=== PATIENT | male | born 1950 | race Native Hawaiian/Other Pacific Islander ===

== ENCOUNTER 2017-11-15 16:41 | Inpatient (IN) | payer MEDICARE, MEDICAID, SELFPAY ==
[2017-11-15] VITALS (9 sets, daily range): BP systolic 116–130; BP diastolic 66–85; PULSE 91–105; RESP 13–21; TEMP 36.9; O2SAT 93–98; BMI 19.5
--- NOTE | 2017-11-15 16:47 | ED.ABDPAIN ---
HPI - Abdominal Pain <Virginia Valdez DO - Last Filed: 11/19/17 04:06> General Chief Complaint: Abdominal Pain Stated Complaint: Abdominal Pain Time Seen by Provider: 11/15/17 16:41 Source: patient and EMS Mode of arrival: EMS Limitations: no limitations History of Present Illness HPI narrative: Patient is a 67-year-old male flown in from [facility] with abdominal pain. He has been having right upper quadrant and right lower quadrant pain for some time but got worse today. He says he really has not eaten anything in 6 weeks every time he eats he feels nauseated. He did take some Pepto-Bismol own is now having some black stool but really not much stool at all. He has not had any fever or chills. He does have a chronic cough but is a former smoker. Today EMS said that he was diaphoretic of a needed to come be evaluated immediately. He is no longer diaphoretic he is feeling better. MD complaint: abdominal pain Related Data Previous Rx's Medication Instructions Recorded docusate sodium [Colace] 100 mg PO BID #14 cap 11/17/17 oxycodone 5 mg PO Q3H PRN #30 tab 11/17/17 sennosides [Senokot] 8.6 mg PO BEDTIME #10 tab 11/17/17 Allergies Allergy/AdvReac Type Severity Reaction Status Date / Time all opiates Allergy Uncoded 11/15/17 19:08 Review of Systems <DO Arnoldo Mata Last Filed: 11/19/17 04:06> Review of Systems All systems reviewed & are unremarkable except as noted in HPI and below Constitutional Reports anorexia, Denies chills, Reports fatigue and Denies fever(s) Eyes Denies change in vision, Denies eye discharge, Denies irritation and Denies loss of vision ENT Ears, Nose, Mouth, and Throat: Denies change in voice, Denies neck pain and Denies sore throat Cardiovascular Denies chest pain, Denies irregular heart rhythm, Denies lightheadedness, Denies palpitations and Denies orthopnea Musculoskeletal Denies neck pain Neurologic Denies loss of vision Endocrine Reports fatigue and Denies palpitations Exam <DO Arnoldo Mata Last Filed: 11/19/17 04:06> Initial Vital Signs Initial Vital Signs: Vital Signs Temperature 98.5 F 11/15/17 16:56 Pulse Rate 104 H 11/15/17 16:56 Respiratory Rate 15 11/15/17 16:56 Blood Pressure 130/85 H 11/15/17 16:56 Const General: cooperative and well developed Nutritional Appearance: well nourished Orientation: alert, awake, oriented x3 and not confused HENNJ Head: normal to inspection and normocephalic Ears: hearing grossly normal bilaterally Eyes General: appearance normal, both eyes and all related structures Neck Neck: normal visual inspection and full ROM Chest Chest: normal inspection of the chest Resp Effort & Inspection: no respiratory distress Auscultation: wheezes scattered wheezes and lower bilaterally Cardio Rate: regular rate Rhythm: regular rhythm Heart Sounds: no click, no gallops, no murmurs and no rubs Pulses: normal peripheral pulses GI Palpation: soft, No guarding, No mass and tender (Mild diffuse tenderness) Rectal Exam: visual inspection normal, normal sphincter tone and heme negative stool Skin General: no rashes or lesions noted, No jaundice and No petechiae Neuro General: alert, oriented x3, gait normal and no focal motor deficits Speech: speech normal <Marc Pitts, DO - Last Filed: 11/16/17 02:47> Initial Vital Signs Initial Vital Signs: Vital Signs Temperature 98.5 F 11/15/17 16:56 Pulse Rate 104 H 11/15/17 16:56 Respiratory Rate 15 11/15/17 16:56 Blood Pressure 130/85 H 11/15/17 16:56 Course <Virginia Valdez, DO - Last Filed: 11/19/17 04:06> Orders Ordered: Discontinued Medications Acetaminophen (Tylenol) 650 mg PO Q6HR PRN PRN Reason: Pain, Mild (1-3) Albuterol (Ventolin) 2.5 mg INH NOW ONE Stop: 11/16/17 09:06 Last Admin: 11/16/17 11:11 Dose: Albuterol (Ventolin) 2.5 mg INH NOW PRN PRN Reason: Coughing, Wheezing, Dyspnea Last Admin: 11/16/17 12:10 Dose: 2.5 mg Albuterol (Ventolin) 2.5 mg INH [id number] PRN PRN Reason: Shortness Of Breath Albuterol/Ipratropium (Duoneb) 3 ml INH NOW PRN PRN Reason: Wheezing Last Admin: 11/15/17 17:06 Dose: 3 ml Albuterol/Ipratropium (Duoneb) 3 ml INH [id number] LIANG Last Admin: 11/17/17 08:24 Dose: 3 ml Admin: 11/16/17 20:36 Dose: 3 ml Admin: 11/16/17 15:32 Dose: 3 ml Albuterol/Ipratropium (Duoneb) 3 ml INH [id number] [facility] Benzocaine (Cepacol Lozenge) 1 each PO PRN PRN PRN Reason: Sore Throat Bupivacaine HCl (Sensorcaine 0.5% (Pf)) 30 ml INJ NOW ONE Stop: 11/16/17 10:36 Last Admin: 11/16/17 10:37 Dose: 10 ml Enoxaparin Sodium (Lovenox) 40 mg SUBCUT DAILY [facility] Last Admin: 11/17/17 08:16 Dose: 40 mg Admin: 11/16/17 13:47 Dose: 40 mg Fentanyl (Sublimaze) 50 mcg IV Q5MIN PRN PRN Reason: Pain, Moderate (4-6) Last Admin: 11/16/17 12:47 Dose: 50 mcg Admin: 11/16/17 12:38 Dose: 50 mcg Admin: 11/16/17 12:30 Dose: 50 mcg Admin: 11/16/17 12:25 Dose: 50 mcg Hydromorphone HCl (Dilaudid) 0.5 mg IV Q5MIN PRN PRN Reason: Pain, Severe (7-10) Hydromorphone HCl (Dilaudid) 0.5 mg IV Q2H PRN PRN Reason: Pain, Severe (7-10) Last Admin: 11/16/17 13:43 Dose: 0.5 mg Hydroxyzine HCl (Vistaril) 25 mg IM NOW PRN PRN Reason: Pain, Mild (1-3) Hydroxyzine Pamoate (Vistaril) 25 mg PO NOW PRN PRN Reason: Pain, Mild (1-3) Sodium Chloride (Normal Saline 0.9%) 1,000 mls @ 150 mls/hr IV CONT LIANG Last Infusion: 11/16/17 00:02 Dose: 0 mls/hr Admin: 11/15/17 17:45 Dose: 150 mls/hr HYDROMORPHONE [employer]ER (Dilaudid 6 Mg/30 Ml) 6 mg in 30 mls @ 0 mls/hr IV Q8HR LIANG Last Admin: 11/16/17 01:03 Dose: 0 mls/hr Sodium Chloride (Normal Saline 0.9%) 1,000 mls @ 125 mls/hr IV CONT LIANG Last Infusion: 11/16/17 10:05 Dose: 0 mls/hr Admin: 11/16/17 01:03 Dose: 125 mls/hr Cefazolin Sodium/Dextrose (Ancef) 2 gm in 100 mls @ 200 mls/hr IV NOW ONE Stop: 11/16/17 09:09 Last Admin: 11/16/17 09:45 Dose: 200 mls/hr Sodium Chloride (Normal Saline 0.9%) 1,000 mls @ 125 mls/hr IV CONT LIANG Last Admin: 11/16/17 11:11 Dose: Lactated Ringer's (Lactated Ringers) 1,000 mls @ 42 mls/hr IV CONT LIANG Last Admin: 11/16/17 11:33 Dose: 42 mls/hr Infusion: 11/16/17 11:33 Dose: 42 mls/hr Admin: 11/16/17 09:07 Dose: 42 mls/hr Famotidine (Pepcid) 20 mg in 50 mls @ 200 mls/hr IV PRN PRN PRN Reason: Anesthesia Stop: 11/16/17 12:00 Last Infusion: 11/16/17 09:45 Dose: 0 mls/hr Admin: 11/16/17 09:11 Dose: 200 mls/hr Lactated Ringer's (Lactated Ringers) 1,000 mls @ 70 mls/hr IV CONT LIANG Last Admin: 11/17/17 05:46 Dose: 70 mls/hr Infusion: 11/17/17 04:00 Dose: 70 mls/hr Admin: 11/16/17 13:42 Dose: 70 mls/hr Cefazolin Sodium/Dextrose (Ancef) 2 gm in 100 mls @ 200 mls/hr IV Q8H LIANG Stop: 11/17/17 03:14 Last Infusion: 11/17/17 03:30 Dose: 200 mls/hr Admin: 11/17/17 02:48 Dose: 200 mls/hr Infusion: 11/16/17 20:20 Dose: 0 mls/hr Admin: 11/16/17 19:23 Dose: 200 mls/hr Iopamidol (Isovue-300) 50 ml INJ NOW ONE Stop: 11/16/17 10:40 Last Admin: 11/16/17 10:39 Dose: 50 ml Lidocaine/Epinephrine (Xylocaine 1% W/Epi) 20 ml INJ NOW ONE Stop: 11/16/17 10:36 Last Admin: 11/16/17 10:36 Dose: 10 ml Lorazepam (Ativan) 0.5 mg IV NOW PRN PRN Reason: Anxiety Lorazepam (Ativan) 0 mg IV CIWAPRN PRN; Protocol PRN Reason: Alcohol Withdrawal Metoclopramide HCl (Reglan) 10 mg IV NOW PRN PRN Reason: Nausea And Vomiting Naloxone HCl (Narcan) 0.2 mg IV Q2MIN PRN; Protocol PRN Reason: Opiate Reversal Naloxone HCl (Narcan) 0.2 mg IV Q2MIN PRN PRN Reason: Opiate Reversal Ondansetron HCl (Zofran) 4 mg IV NOW ONE Stop: 11/15/17 16:51 Last Admin: 11/15/17 17:46 Dose: 4 mg Ondansetron HCl (Zofran) 4 mg IV Q4H PRN PRN Reason: Nausea And Vomiting Ondansetron HCl (Zofran) 4 mg IV NOW PRN PRN Reason: Nausea And Vomiting Oxycodone/Acetaminophen (Percocet 5/325) 1 tab PO Q3H PRN PRN Reason: Pain, Moderate (4-6) Last Admin: 11/17/17 14:21 Dose: 1 tab Admin: 11/17/17 10:51 Dose: 1 tab Admin: 11/17/17 04:40 Dose: 1 tab Admin: 11/16/17 19:23 Dose: 1 tab Admin: 11/16/17 13:46 Dose: 1 tab Pantoprazole Sodium (Protonix) 40 mg IV NOW ONE Stop: 11/15/17 16:51 Last Admin: 11/15/17 17:46 Dose: 40 mg Pantoprazole Sodium (Protonix) 40 mg IV DAILY LIANG Last Admin: 11/17/17 08:16 Dose: 40 mg Admin: 11/16/17 14:53 Dose: 40 mg Vital Signs - 8 hr 07/19/18 18:56 11/15/17 19:02 11/15/17 21:06 Temperature Pulse Rate 96 H 91 H Respiratory Rate 19 13 19 Blood Pressure Blood Pressure [Left Arm] 116/66 119/76 126/75 H Pulse Oximetry 96 94 94 11/15/17 22:00 11/15/17 22:37 11/15/17 23:30 Temperature Pulse Rate 96 H 92 H 94 H Respiratory Rate 15 15 14 Blood Pressure Blood Pressure [Left Arm] 129/78 H 126/70 H 122/75 H Pulse Oximetry 93 95 93 11/16/17 00:18 Temperature 97.7 F Pulse Rate 100 H Respiratory Rate 18 Blood Pressure 116/82 H Blood Pressure [Left Arm] Pulse Oximetry 95 <Marc Pitts DO - Last Filed: 11/16/17 02:47> Orders Ordered: Discontinued Medications Acetaminophen (Tylenol) 650 mg PO Q6HR PRN PRN Reason: Pain, Mild (1-3) Albuterol (Ventolin) 2.5 mg INH NOW ONE Stop: 11/16/17 09:06 Last Admin: 11/16/17 11:11 Dose: Albuterol (Ventolin) 2.5 mg INH NOW PRN PRN Reason: Coughing, Wheezing, Dyspnea Last Admin: 11/16/17 12:10 Dose: 2.5 mg Albuterol (Ventolin) 2.5 mg INH [id number] PRN PRN Reason: Shortness Of Breath Albuterol/Ipratropium (Duoneb) 3 ml INH NOW PRN PRN Reason: Wheezing Last Admin: 11/15/17 17:06 Dose: 3 ml Albuterol/Ipratropium (Duoneb) 3 ml INH [id number] LIANG Last Admin: 11/17/17 08:24 Dose: 3 ml Admin: 11/16/17 20:36 Dose: 3 ml Admin: 11/16/17 15:32 Dose: 3 ml Albuterol/Ipratropium (Duoneb) 3 ml INH [id number] LIANG Benzocaine (Cepacol Lozenge) 1 each PO PRN PRN PRN Reason: Sore Throat Bupivacaine HCl (Sensorcaine 0.5% (Pf)) 30 ml INJ NOW ONE Stop: 11/16/17 10:36 Last Admin: 11/16/17 10:37 Dose: 10 ml Enoxaparin Sodium (Lovenox) 40 mg SUBCUT DAILY [facility] Last Admin: 11/17/17 08:16 Dose: 40 mg Admin: 11/16/17 13:47 Dose: 40 mg Fentanyl (Sublimaze) 50 mcg IV Q5MIN PRN PRN Reason: Pain, Moderate (4-6) Last Admin: 11/16/17 12:47 Dose: 50 mcg Admin: 11/16/17 12:38 Dose: 50 mcg Admin: 11/16/17 12:30 Dose: 50 mcg Admin: 11/16/17 12:25 Dose: 50 mcg Hydromorphone HCl (Dilaudid) 0.5 mg IV Q5MIN PRN PRN Reason: Pain, Severe (7-10) Hydromorphone HCl (Dilaudid) 0.5 mg IV Q2H PRN PRN Reason: Pain, Severe (7-10) Last Admin: 11/16/17 13:43 Dose: 0.5 mg Hydroxyzine HCl (Vistaril) 25 mg IM NOW PRN PRN Reason: Pain, Mild (1-3) Hydroxyzine Pamoate (Vistaril) 25 mg PO NOW PRN PRN Reason: Pain, Mild (1-3) Sodium Chloride (Normal Saline 0.9%) 1,000 mls @ 150 mls/hr IV CONT [facility] Last Infusion: 11/16/17 00:02 Dose: 0 mls/hr Admin: 11/15/17 17:45 Dose: 150 mls/hr HYDROMORPHONE [employer]ER (Dilaudid 6 Mg/30 Ml) 6 mg in 30 mls @ 0 mls/hr IV Q8HR [facility] Last Admin: 11/16/17 01:03 Dose: 0 mls/hr Sodium Chloride (Normal Saline 0.9%) 1,000 mls @ 125 mls/hr IV CONT [facility] Last Infusion: 11/16/17 10:05 Dose: 0 mls/hr Admin: 11/16/17 01:03 Dose: 125 mls/hr Cefazolin Sodium/Dextrose (Ancef) 2 gm in 100 mls @ 200 mls/hr IV NOW ONE Stop: 11/16/17 09:09 Last Admin: 11/16/17 09:45 Dose: 200 mls/hr Sodium Chloride (Normal Saline 0.9%) 1,000 mls @ 125 mls/hr IV CONT LIANG Last Admin: 11/16/17 11:11 Dose: Lactated Ringer's (Lactated Ringers) 1,000 mls @ 42 mls/hr IV CONT LIANG Last Admin: 11/16/17 11:33 Dose: 42 mls/hr Infusion: 11/16/17 11:33 Dose: 42 mls/hr Admin: 11/16/17 09:07 Dose: 42 mls/hr Famotidine (Pepcid) 20 mg in 50 mls @ 200 mls/hr IV PRN PRN PRN Reason: Anesthesia Stop: 11/16/17 12:00 Last Infusion: 11/16/17 09:45 Dose: 0 mls/hr Admin: 11/16/17 09:11 Dose: 200 mls/hr Lactated Ringer's (Lactated Ringers) 1,000 mls @ 70 mls/hr IV CONT LIANG Last Admin: 11/17/17 05:46 Dose: 70 mls/hr Infusion: 11/17/17 04:00 Dose: 70 mls/hr Admin: 11/16/17 13:42 Dose: 70 mls/hr Cefazolin Sodium/Dextrose (Ancef) 2 gm in 100 mls @ 200 mls/hr IV Q8H LIANG Stop: 11/17/17 03:14 Last Infusion: 11/17/17 03:30 Dose: 200 mls/hr Admin: 11/17/17 02:48 Dose: 200 mls/hr Infusion: 11/16/17 20:20 Dose: 0 mls/hr Admin: 11/16/17 19:23 Dose: 200 mls/hr Iopamidol (Isovue-300) 50 ml INJ NOW ONE Stop: 11/16/17 10:40 Last Admin: 11/16/17 10:39 Dose: 50 ml Lidocaine/Epinephrine (Xylocaine 1% W/Epi) 20 ml INJ NOW ONE Stop: 11/16/17 10:36 Last Admin: 11/16/17 10:36 Dose: 10 ml Lorazepam (Ativan) 0.5 mg IV NOW PRN PRN Reason: Anxiety Lorazepam (Ativan) 0 mg IV CIWAPRN PRN; Protocol PRN Reason: Alcohol Withdrawal Metoclopramide HCl (Reglan) 10 mg IV NOW PRN PRN Reason: Nausea And Vomiting Naloxone HCl (Narcan) 0.2 mg IV Q2MIN PRN; Protocol PRN Reason: Opiate Reversal Naloxone HCl (Narcan) 0.2 mg IV Q2MIN PRN PRN Reason: Opiate Reversal Ondansetron HCl (Zofran) 4 mg IV NOW ONE Stop: 11/15/17 16:51 Last Admin: 11/15/17 17:46 Dose: 4 mg Ondansetron HCl (Zofran) 4 mg IV Q4H PRN PRN Reason: Nausea And Vomiting Ondansetron HCl (Zofran) 4 mg IV NOW PRN PRN Reason: Nausea And Vomiting Oxycodone/Acetaminophen (Percocet 5/325) 1 tab PO Q3H PRN PRN Reason: Pain, Moderate (4-6) Last Admin: 11/17/17 14:21 Dose: 1 tab Admin: 11/17/17 10:51 Dose: 1 tab Admin: 11/17/17 04:40 Dose: 1 tab Admin: 11/16/17 19:23 Dose: 1 tab Admin: 11/16/17 13:46 Dose: 1 tab Pantoprazole Sodium (Protonix) 40 mg IV NOW ONE Stop: 11/15/17 16:51 Last Admin: 11/15/17 17:46 Dose: 40 mg Pantoprazole Sodium (Protonix) 40 mg IV DAILY LIANG Last Admin: 11/17/17 08:16 Dose: 40 mg Admin: 11/16/17 14:53 Dose: 40 mg Consultations Consultation #1: Dr. Ortiz is happy to accept this patient. He requests normal saline at 125 cc/hour, no antibiotics, Dilaudid [employer]ER, Zofran, and p.o. status Vital Signs - 8 hr 11/15/17 18:56 11/15/17 19:02 11/15/17 21:06 Temperature Pulse Rate 96 H 91 H Respiratory Rate 19 13 19 Blood Pressure Blood Pressure [Left Arm] 116/66 119/76 126/75 H Pulse Oximetry 96 94 94 11/15/17 22:00 11/15/17 22:37 11/15/17 23:30 Temperature Pulse Rate 96 H 92 H 94 H Respiratory Rate 15 15 14 Blood Pressure Blood Pressure [Left Arm] 129/78 H 126/70 H 122/75 H Pulse Oximetry 93 95 93 11/16/17 00:18 Temperature 97.7 F Pulse Rate 100 H Respiratory Rate 18 Blood Pressure 116/82 H Blood Pressure [Left Arm] Pulse Oximetry 95 MDM - Abdominal Pain <Virginia Valdez DO - Last Filed: 11/19/17 04:06> Lab Data Result diagrams: 11/15/17 17:48 11/15/17 17:48 Lab Results 11/15/17 11/15/17 11/15/17 Range/Units 17:48 17:48 17:48 WBC 5.2 (4.5-11.0) X10^3/uL RBC 3.92 L (4.5-5.9) X10^6/uL Hgb 10.1 L (13.5-17.5) g/dL Hct 31.9 L (41-53) % MCV 81.4 (80-100) fL MCH 25.8 L (26-34) PG MCHC 31.7 (30-36) % RDW 22.7 H (11.6-14.8) % Plt Count 286 (150-400) X10^3/uL Neut % (Auto) 61.5 (50-75) % Lymph % (Auto) 28.6 (25-40) % Phelps % (Auto) 8.6 (3-14) % Eos % (Auto) 0.8 L (2-4) % Baso % (Auto) 0.5 (0-2) % Neut # (Auto) 3200 (9188-6114) /uL RBC Morphology Not Reportable Hypochromasia 1+ H Anisocytosis 3+ H Microcytosis 1+ H PT 11.7 (10.1-12.7) SECONDS INR 1.1 (0.9-1.3) APTT 30 (26.4-36.2) SECONDS Sodium 141 (137-145) mmol/L Potassium 3.6 (3.4-5.1) mmol/L Chloride 99 (98-107) mmol/L Carbon Dioxide 29 (22-32) mmol/L BUN 7 L (9-20) mg/dL Creatinine 0.60 L (0.66-1.25) mg/dL Estimated GFR > 60.0 (>60) mL/min BUN/Creatinine Ratio 11.7 (6-22) Glucose 85 (80-110) mg/dL Calcium 8.5 (8.4-10.2) mg/dL Total Bilirubin 1.6 H (0.2-1.3) mg/dL AST 196 H (17-59) IU/L ALT 46 (21-72) IU/L Alkaline Phosphatase 129 H (38-126) U/L Total Creatine Kinase 28 L (55-170) U/L Troponin I < 0.012 (0.01-0.034) ng/mL Total Protein 6.5 (6.3-8.2) g/dL Albumin 3.2 L (3.5-5.0) g/dL Globulin 3.3 (1.7-4.1) g/dL Albumin/Globulin Ratio 1.0 (1.0-2.8) Lipase 132 (23-300) U/L Hep Bs Antigen (NEGATIVE) s/c Hepatitis C Antibody (NEGATIVE) s/c HIV 1&2 Antibody (NEGATIVE) 11/16/17 11/16/17 Range/Units 15:53 15:53 WBC (4.5-11.0) X10^3/uL RBC (4.5-5.9) X10^6/uL Hgb (13.5-17.5) g/dL Hct (41-53) % MCV (80-100) fL MCH (26-34) PG MCHC (30-36) % RDW (11.6-14.8) % Plt Count (150-400) X10^3/uL Neut % (Auto) (50-75) % Lymph % (Auto) (25-40) % Phelps % (Auto) (3-14) % Eos % (Auto) (2-4) % Baso % (Auto) (0-2) % Neut # (Auto) (6177-3120) /uL RBC Morphology Hypochromasia Anisocytosis Microcytosis PT (10.1-12.7) SECONDS INR (0.9-1.3) APTT (26.4-36.2) SECONDS Sodium (137-145) mmol/L Potassium (3.4-5.1) mmol/L Chloride (98-107) mmol/L Carbon Dioxide (22-32) mmol/L BUN (9-20) mg/dL Creatinine (0.66-1.25) mg/dL Estimated GFR (>60) mL/min BUN/Creatinine Ratio (6-22) Glucose (80-110) mg/dL Calcium (8.4-10.2) mg/dL Total Bilirubin (0.2-1.3) mg/dL AST (17-59) IU/L ALT 51 (21-72) IU/L Alkaline Phosphatase (38-126) U/L Total Creatine Kinase (55-170) U/L Troponin I (0.01-0.034) ng/mL Total Protein (6.3-8.2) g/dL Albumin (3.5-5.0) g/dL Globulin (1.7-4.1) g/dL Albumin/Globulin Ratio (1.0-2.8) Lipase (23-300) U/L Hep Bs Antigen Negative (NEGATIVE) s/c Hepatitis C Antibody Reactive H (NEGATIVE) s/c HIV 1&2 Antibody Negative (NEGATIVE) Point of care testing: Urine Dip Bedside Urine Glucose Negative Bedside Urine Bilirubin - Negative Bedside Urine Ketone - Negative Urine Specific [place] 1.015 Bedside Urine Occult Blood - Negative Bedside Urine pH 7.0 Bedside Urine Protein - Negative Bedside Urine Urobilinogen - Negative Bedside Urine Nitrite - Negative Bedside Urine Leukocytes - Negative Esterase <Marc Pitts, DO - Last Filed: 11/16/17 02:47> Lab Data Lab Results 11/15/17 11/15/17 11/15/17 Range/Units 17:48 17:48 17:48 WBC 5.2 (4.5-11.0) X10^3/uL RBC 3.92 L (4.5-5.9) X10^6/uL Hgb 10.1 L (13.5-17.5) g/dL Hct 31.9 L (41-53) % MCV 81.4 (80-100) fL MCH 25.8 L (26-34) PG MCHC 31.7 (30-36) % RDW 22.7 H (11.6-14.8) % Plt Count 286 (150-400) X10^3/uL Neut % (Auto) 61.5 (50-75) % Lymph % (Auto) 28.6 (25-40) % Phelps % (Auto) 8.6 (3-14) % Eos % (Auto) 0.8 L (2-4) % Baso % (Auto) 0.5 (0-2) % Neut # (Auto) 3200 (9308-5267) /uL RBC Morphology Not Reportable Hypochromasia 1+ H Anisocytosis 3+ H Microcytosis 1+ H PT 11.7 (10.1-12.7) SECONDS INR 1.1 (0.9-1.3) APTT 30 (26.4-36.2) SECONDS Sodium 141 (137-145) mmol/L Potassium 3.6 (3.4-5.1) mmol/L Chloride 99 (98-107) mmol/L Carbon Dioxide 29 (22-32) mmol/L BUN 7 L (9-20) mg/dL Creatinine 0.60 L (0.66-1.25) mg/dL Estimated GFR > 60.0 (>60) mL/min BUN/Creatinine Ratio 11.7 (6-22) Glucose 85 (80-110) mg/dL Calcium 8.5 (8.4-10.2) mg/dL Total Bilirubin 1.6 H (0.2-1.3) mg/dL AST 196 H (17-59) IU/L ALT 46 (21-72) IU/L Alkaline Phosphatase 129 H (38-126) U/L Total Creatine Kinase 28 L (55-170) U/L Troponin I < 0.012 (0.01-0.034) ng/mL Total Protein 6.5 (6.3-8.2) g/dL Albumin 3.2 L (3.5-5.0) g/dL Globulin 3.3 (1.7-4.1) g/dL Albumin/Globulin Ratio 1.0 (1.0-2.8) Lipase 132 (23-300) U/L Hep Bs Antigen (NEGATIVE) s/c Hepatitis C Antibody (NEGATIVE) s/c HIV 1&2 Antibody (NEGATIVE) 11/16/17 11/16/17 Range/Units 15:53 15:53 WBC (4.5-11.0) X10^3/uL RBC (4.5-5.9) X10^6/uL Hgb (13.5-17.5) g/dL Hct (41-53) % MCV (80-100) fL MCH (26-34) PG MCHC (30-36) % RDW (11.6-14.8) % Plt Count (150-400) X10^3/uL Neut % (Auto) (50-75) % Lymph % (Auto) (25-40) % Phelps % (Auto) (3-14) % Eos % (Auto) (2-4) % Baso % (Auto) (0-2) % Neut # (Auto) (9136-2874) /uL RBC Morphology Hypochromasia Anisocytosis Microcytosis PT (10.1-12.7) SECONDS INR (0.9-1.3) APTT (26.4-36.2) SECONDS Sodium (137-145) mmol/L Potassium (3.4-5.1) mmol/L Chloride (98-107) mmol/L Carbon Dioxide (22-32) mmol/L BUN (9-20) mg/dL Creatinine (0.66-1.25) mg/dL Estimated GFR (>60) mL/min BUN/Creatinine Ratio (6-22) Glucose (80-110) mg/dL Calcium (8.4-10.2) mg/dL Total Bilirubin (0.2-1.3) mg/dL AST (17-59) IU/L ALT 51 (21-72) IU/L Alkaline Phosphatase (38-126) U/L Total Creatine Kinase (55-170) U/L Troponin I (0.01-0.034) ng/mL Total Protein (6.3-8.2) g/dL Albumin (3.5-5.0) g/dL Globulin (1.7-4.1) g/dL Albumin/Globulin Ratio (1.0-2.8) Lipase (23-300) U/L Hep Bs Antigen Negative (NEGATIVE) s/c Hepatitis C Antibody Reactive H (NEGATIVE) s/c HIV 1&2 Antibody Negative (NEGATIVE) Point of care testing: Urine Dip Bedside Urine Glucose Negative Bedside Urine Bilirubin - Negative Bedside Urine Ketone - Negative Urine Specific [place] 1.015 Bedside Urine Occult Blood - Negative Bedside Urine pH 7.0 Bedside Urine Protein - Negative Bedside Urine Urobilinogen - Negative Bedside Urine Nitrite - Negative Bedside Urine Leukocytes - Negative Esterase MDM Narrative Medical decision making narrative: upon receipt of CT scan and noted abnormalities with gallbladder an ultrasound was ordered. Ultrasound findings are noted above including thickened wall with some pericholecystic fluid. No gallstones noted. I placed a call to Dr. Ortiz who was happy to accept this patient and will likely receive a cholecystectomy Discharge Plan Departure Patient Disposition: Admitted As Inpatient Clinical Impression: Acute acalculous cholecystitis Discharge Date/Time: 11/16/17 00:04 Interventions: ED Discharge Assessment Last Done: 11/16/17 00:03 Admit Date/Time: 11/15/17 23:56 Admit Provider: Jacky Ortiz ED Cosign/Signout <Virginia Valdez DO - Last Filed: 11/19/17 04:06> Sign Out Provider Sign Out Attestation: patient signed out to Dr. Pitts at shift change. Awaiting CT result and final disposition
--- NOTE | 2017-11-15 16:50 | ED_ITS ---
HPI - Abdominal Pain <Virginia Valdez DO - Last Filed: 11/19/17 04:06> General Chief Complaint: Abdominal Pain Stated Complaint: Abdominal Pain Time Seen by Provider: 11/15/17 16:41 Source: patient and EMS Mode of arrival: EMS Limitations: no limitations History of Present Illness HPI narrative: Patient is a 67-year-old male flown in from [facility] with abdominal pain. He has been having right upper quadrant and right lower quadrant pain for some time but got worse today. He says he really has not eaten anything in 6 weeks every time he eats he feels nauseated. He did take some Pepto-Bismol own is now having some black stool but really not much stool at all. He has not had any fever or chills. He does have a chronic cough but is a former smoker. Today EMS said that he was diaphoretic of a needed to come be evaluated immediately. He is no longer diaphoretic he is feeling better. MD complaint: abdominal pain Related Data Previous Rx's Medication Instructions Recorded docusate sodium [Colace] 100 mg PO BID #14 cap 11/17/17 oxycodone 5 mg PO Q3H PRN #30 tab 11/17/17 sennosides [Senokot] 8.6 mg PO BEDTIME #10 tab 11/17/17 Allergies Allergy/AdvReac Type Severity Reaction Status Date / Time all opiates Allergy Uncoded 11/15/17 19:08 Review of Systems <DO Arnoldo Mata Last Filed: 11/19/17 04:06> Review of Systems All systems reviewed & are unremarkable except as noted in HPI and below Constitutional Reports anorexia, Denies chills, Reports fatigue and Denies fever(s) Eyes Denies change in vision, Denies eye discharge, Denies irritation and Denies loss of vision ENT Ears, Nose, Mouth, and Throat: Denies change in voice, Denies neck pain and Denies sore throat Cardiovascular Denies chest pain, Denies irregular heart rhythm, Denies lightheadedness, Denies palpitations and Denies orthopnea Musculoskeletal Denies neck pain Neurologic Denies loss of vision Endocrine Reports fatigue and Denies palpitations Exam <DO Arnoldo Mata Last Filed: 11/19/17 04:06> Initial Vital Signs Initial Vital Signs: Vital Signs Temperature 98.5 F 11/15/17 16:56 Pulse Rate 104 H 11/15/17 16:56 Respiratory Rate 15 11/15/17 16:56 Blood Pressure 130/85 H 11/15/17 16:56 Const General: cooperative and well developed Nutritional Appearance: well nourished Orientation: alert, awake, oriented x3 and not confused H[place]UT Head: normal to inspection and normocephalic Ears: hearing grossly normal bilaterally Eyes General: appearance normal, both eyes and all related structures Neck Neck: normal visual inspection and full ROM Chest Chest: normal inspection of the chest Resp Effort & Inspection: no respiratory distress Auscultation: wheezes scattered wheezes and lower bilaterally Cardio Rate: regular rate Rhythm: regular rhythm Heart Sounds: no click, no gallops, no murmurs and no rubs Pulses: normal peripheral pulses GI Palpation: soft, No guarding, No mass and tender (Mild diffuse tenderness) Rectal Exam: visual inspection normal, normal sphincter tone and heme negative stool Skin General: no rashes or lesions noted, No jaundice and No petechiae Neuro General: alert, oriented x3, gait normal and no focal motor deficits Speech: speech normal <Marc Pitts, DO - Last Filed: 11/16/17 02:47> Initial Vital Signs Initial Vital Signs: Vital Signs Temperature 98.5 F 11/15/17 16:56 Pulse Rate 104 H 11/15/17 16:56 Respiratory Rate 15 11/15/17 16:56 Blood Pressure 130/85 H 11/15/17 16:56 Course <Virginia Valdez, DO - Last Filed: 11/19/17 04:06> Orders Ordered: Discontinued Medications Acetaminophen (Tylenol) 650 mg PO Q6HR PRN PRN Reason: Pain, Mild (1-3) Albuterol (Ventolin) 2.5 mg INH NOW ONE Stop: 11/16/17 09:06 Last Admin: 11/16/17 11:11 Dose: Albuterol (Ventolin) 2.5 mg INH NOW PRN PRN Reason: Coughing, Wheezing, Dyspnea Last Admin: 11/16/17 12:10 Dose: 2.5 mg Albuterol (Ventolin) 2.5 mg INH [id number] PRN PRN Reason: Shortness Of Breath Albuterol/Ipratropium (Duoneb) 3 ml INH NOW PRN PRN Reason: Wheezing Last Admin: 11/15/17 17:06 Dose: 3 ml Albuterol/Ipratropium (Duoneb) 3 ml INH [id number] LIANG Last Admin: 11/17/17 08:24 Dose: 3 ml Admin: 11/16/17 20:36 Dose: 3 ml Admin: 11/16/17 15:32 Dose: 3 ml Albuterol/Ipratropium (Duoneb) 3 ml INH [id number] [facility] Benzocaine (Cepacol Lozenge) 1 each PO PRN PRN PRN Reason: Sore Throat Bupivacaine HCl (Sensorcaine 0.5% (Pf)) 30 ml INJ NOW ONE Stop: 11/16/17 10:36 Last Admin: 11/16/17 10:37 Dose: 10 ml Enoxaparin Sodium (Lovenox) 40 mg SUBCUT DAILY [facility] Last Admin: 11/17/17 08:16 Dose: 40 mg Admin: 11/16/17 13:47 Dose: 40 mg Fentanyl (Sublimaze) 50 mcg IV Q5MIN PRN PRN Reason: Pain, Moderate (4-6) Last Admin: 11/16/17 12:47 Dose: 50 mcg Admin: 11/16/17 12:38 Dose: 50 mcg Admin: 11/16/17 12:30 Dose: 50 mcg Admin: 11/16/17 12:25 Dose: 50 mcg Hydromorphone HCl (Dilaudid) 0.5 mg IV Q5MIN PRN PRN Reason: Pain, Severe (7-10) Hydromorphone HCl (Dilaudid) 0.5 mg IV Q2H PRN PRN Reason: Pain, Severe (7-10) Last Admin: 11/16/17 13:43 Dose: 0.5 mg Hydroxyzine HCl (Vistaril) 25 mg IM NOW PRN PRN Reason: Pain, Mild (1-3) Hydroxyzine Pamoate (Vistaril) 25 mg PO NOW PRN PRN Reason: Pain, Mild (1-3) Sodium Chloride (Normal Saline 0.9%) 1,000 mls @ 150 mls/hr IV CONT LIANG Last Infusion: 11/16/17 00:02 Dose: 0 mls/hr Admin: 11/15/17 17:45 Dose: 150 mls/hr HYDROMORPHONE [employer] (Dilaudid 6 Mg/30 Ml) 6 mg in 30 mls @ 0 mls/hr IV Q8HR LIANG Last Admin: 11/16/17 01:03 Dose: 0 mls/hr Sodium Chloride (Normal Saline 0.9%) 1,000 mls @ 125 mls/hr IV CONT LIANG Last Infusion: 11/16/17 10:05 Dose: 0 mls/hr Admin: 11/16/17 01:03 Dose: 125 mls/hr Cefazolin Sodium/Dextrose (Ancef) 2 gm in 100 mls @ 200 mls/hr IV NOW ONE Stop: 11/16/17 09:09 Last Admin: 11/16/17 09:45 Dose: 200 mls/hr Sodium Chloride (Normal Saline 0.9%) 1,000 mls @ 125 mls/hr IV CONT LIANG Last Admin: 11/16/17 11:11 Dose: Lactated Ringer's (Lactated Ringers) 1,000 mls @ 42 mls/hr IV CONT LIANG Last Admin: 11/16/17 11:33 Dose: 42 mls/hr Infusion: 11/16/17 11:33 Dose: 42 mls/hr Admin: 11/16/17 09:07 Dose: 42 mls/hr Famotidine (Pepcid) 20 mg in 50 mls @ 200 mls/hr IV PRN PRN PRN Reason: Anesthesia Stop: 11/16/17 12:00 Last Infusion: 11/16/17 09:45 Dose: 0 mls/hr Admin: 11/16/17 09:11 Dose: 200 mls/hr Lactated Ringer's (Lactated Ringers) 1,000 mls @ 70 mls/hr IV CONT LIANG Last Admin: 11/17/17 05:46 Dose: 70 mls/hr Infusion: 11/17/17 04:00 Dose: 70 mls/hr Admin: 11/16/17 13:42 Dose: 70 mls/hr Cefazolin Sodium/Dextrose (Ancef) 2 gm in 100 mls @ 200 mls/hr IV Q8H LIANG Stop: 11/17/17 03:14 Last Infusion: 11/17/17 03:30 Dose: 200 mls/hr Admin: 11/17/17 02:48 Dose: 200 mls/hr Infusion: 11/16/17 20:20 Dose: 0 mls/hr Admin: 11/16/17 19:23 Dose: 200 mls/hr Iopamidol (Isovue-300) 50 ml INJ NOW ONE Stop: 11/16/17 10:40 Last Admin: 11/16/17 10:39 Dose: 50 ml Lidocaine/Epinephrine (Xylocaine 1% W/Epi) 20 ml INJ NOW ONE Stop: 11/16/17 10:36 Last Admin: 11/16/17 10:36 Dose: 10 ml Lorazepam (Ativan) 0.5 mg IV NOW PRN PRN Reason: Anxiety Lorazepam (Ativan) 0 mg IV CIWAPRN PRN; Protocol PRN Reason: Alcohol Withdrawal Metoclopramide HCl (Reglan) 10 mg IV NOW PRN PRN Reason: Nausea And Vomiting Naloxone HCl (Narcan) 0.2 mg IV Q2MIN PRN; Protocol PRN Reason: Opiate Reversal Naloxone HCl (Narcan) 0.2 mg IV Q2MIN PRN PRN Reason: Opiate Reversal Ondansetron HCl (Zofran) 4 mg IV NOW ONE Stop: 11/15/17 16:51 Last Admin: 11/15/17 17:46 Dose: 4 mg Ondansetron HCl (Zofran) 4 mg IV Q4H PRN PRN Reason: Nausea And Vomiting Ondansetron HCl (Zofran) 4 mg IV NOW PRN PRN Reason: Nausea And Vomiting Oxycodone/Acetaminophen (Percocet 5/325) 1 tab PO Q3H PRN PRN Reason: Pain, Moderate (4-6) Last Admin: 11/17/17 14:21 Dose: 1 tab Admin: 11/17/17 10:51 Dose: 1 tab Admin: 11/17/17 04:40 Dose: 1 tab Admin: 11/16/17 19:23 Dose: 1 tab Admin: 11/16/17 13:46 Dose: 1 tab Pantoprazole Sodium (Protonix) 40 mg IV NOW ONE Stop: 11/15/17 16:51 Last Admin: 11/15/17 17:46 Dose: 40 mg Pantoprazole Sodium (Protonix) 40 mg IV DAILY LIANG Last Admin: 11/17/17 08:16 Dose: 40 mg Admin: 11/16/17 14:53 Dose: 40 mg Vital Signs - 8 hr 07/19/18 18:56 11/15/17 19:02 11/15/17 21:06 Temperature Pulse Rate 96 H 91 H Respiratory Rate 19 13 19 Blood Pressure Blood Pressure [Left Arm] 116/66 119/76 126/75 H Pulse Oximetry 96 94 94 11/15/17 22:00 11/15/17 22:37 11/15/17 23:30 Temperature Pulse Rate 96 H 92 H 94 H Respiratory Rate 15 15 14 Blood Pressure Blood Pressure [Left Arm] 129/78 H 126/70 H 122/75 H Pulse Oximetry 93 95 93 11/16/17 00:18 Temperature 97.7 F Pulse Rate 100 H Respiratory Rate 18 Blood Pressure 116/82 H Blood Pressure [Left Arm] Pulse Oximetry 95 <Marc Pitts DO - Last Filed: 11/16/17 02:47> Orders Ordered: Discontinued Medications Acetaminophen (Tylenol) 650 mg PO Q6HR PRN PRN Reason: Pain, Mild (1-3) Albuterol (Ventolin) 2.5 mg INH NOW ONE Stop: 11/16/17 09:06 Last Admin: 11/16/17 11:11 Dose: Albuterol (Ventolin) 2.5 mg INH NOW PRN PRN Reason: Coughing, Wheezing, Dyspnea Last Admin: 11/16/17 12:10 Dose: 2.5 mg Albuterol (Ventolin) 2.5 mg INH [id number] PRN PRN Reason: Shortness Of Breath Albuterol/Ipratropium (Duoneb) 3 ml INH NOW PRN PRN Reason: Wheezing Last Admin: 11/15/17 17:06 Dose: 3 ml Albuterol/Ipratropium (Duoneb) 3 ml INH [id number] LIANG Last Admin: 11/17/17 08:24 Dose: 3 ml Admin: 11/16/17 20:36 Dose: 3 ml Admin: 11/16/17 15:32 Dose: 3 ml Albuterol/Ipratropium (Duoneb) 3 ml INH [id number] LIANG Benzocaine (Cepacol Lozenge) 1 each PO PRN PRN PRN Reason: Sore Throat Bupivacaine HCl (Sensorcaine 0.5% (Pf)) 30 ml INJ NOW ONE Stop: 11/16/17 10:36 Last Admin: 11/16/17 10:37 Dose: 10 ml Enoxaparin Sodium (Lovenox) 40 mg SUBCUT DAILY [facility] Last Admin: 11/17/17 08:16 Dose: 40 mg Admin: 11/16/17 13:47 Dose: 40 mg Fentanyl (Sublimaze) 50 mcg IV Q5MIN PRN PRN Reason: Pain, Moderate (4-6) Last Admin: 11/16/17 12:47 Dose: 50 mcg Admin: 11/16/17 12:38 Dose: 50 mcg Admin: 11/16/17 12:30 Dose: 50 mcg Admin: 11/16/17 12:25 Dose: 50 mcg Hydromorphone HCl (Dilaudid) 0.5 mg IV Q5MIN PRN PRN Reason: Pain, Severe (7-10) Hydromorphone HCl (Dilaudid) 0.5 mg IV Q2H PRN PRN Reason: Pain, Severe (7-10) Last Admin: 11/16/17 13:43 Dose: 0.5 mg Hydroxyzine HCl (Vistaril) 25 mg IM NOW PRN PRN Reason: Pain, Mild (1-3) Hydroxyzine Pamoate (Vistaril) 25 mg PO NOW PRN PRN Reason: Pain, Mild (1-3) Sodium Chloride (Normal Saline 0.9%) 1,000 mls @ 150 mls/hr IV CONT [facility] Last Infusion: 11/16/17 00:02 Dose: 0 mls/hr Admin: 11/15/17 17:45 Dose: 150 mls/hr HYDROMORPHONE [employer] (Dilaudid 6 Mg/30 Ml) 6 mg in 30 mls @ 0 mls/hr IV Q8HR [facility] Last Admin: 11/16/17 01:03 Dose: 0 mls/hr Sodium Chloride (Normal Saline 0.9%) 1,000 mls @ 125 mls/hr IV CONT [facility] Last Infusion: 11/16/17 10:05 Dose: 0 mls/hr Admin: 11/16/17 01:03 Dose: 125 mls/hr Cefazolin Sodium/Dextrose (Ancef) 2 gm in 100 mls @ 200 mls/hr IV NOW ONE Stop: 11/16/17 09:09 Last Admin: 11/16/17 09:45 Dose: 200 mls/hr Sodium Chloride (Normal Saline 0.9%) 1,000 mls @ 125 mls/hr IV CONT LIANG Last Admin: 11/16/17 11:11 Dose: Lactated Ringer's (Lactated Ringers) 1,000 mls @ 42 mls/hr IV CONT LIANG Last Admin: 11/16/17 11:33 Dose: 42 mls/hr Infusion: 11/16/17 11:33 Dose: 42 mls/hr Admin: 11/16/17 09:07 Dose: 42 mls/hr Famotidine (Pepcid) 20 mg in 50 mls @ 200 mls/hr IV PRN PRN PRN Reason: Anesthesia Stop: 11/16/17 12:00 Last Infusion: 11/16/17 09:45 Dose: 0 mls/hr Admin: 11/16/17 09:11 Dose: 200 mls/hr Lactated Ringer's (Lactated Ringers) 1,000 mls @ 70 mls/hr IV CONT LIANG Last Admin: 11/17/17 05:46 Dose: 70 mls/hr Infusion: 11/17/17 04:00 Dose: 70 mls/hr Admin: 11/16/17 13:42 Dose: 70 mls/hr Cefazolin Sodium/Dextrose (Ancef) 2 gm in 100 mls @ 200 mls/hr IV Q8H LIANG Stop: 11/17/17 03:14 Last Infusion: 11/17/17 03:30 Dose: 200 mls/hr Admin: 11/17/17 02:48 Dose: 200 mls/hr Infusion: 11/16/17 20:20 Dose: 0 mls/hr Admin: 11/16/17 19:23 Dose: 200 mls/hr Iopamidol (Isovue-300) 50 ml INJ NOW ONE Stop: 11/16/17 10:40 Last Admin: 11/16/17 10:39 Dose: 50 ml Lidocaine/Epinephrine (Xylocaine 1% W/Epi) 20 ml INJ NOW ONE Stop: 11/16/17 10:36 Last Admin: 11/16/17 10:36 Dose: 10 ml Lorazepam (Ativan) 0.5 mg IV NOW PRN PRN Reason: Anxiety Lorazepam (Ativan) 0 mg IV CIWAPRN PRN; Protocol PRN Reason: Alcohol Withdrawal Metoclopramide HCl (Reglan) 10 mg IV NOW PRN PRN Reason: Nausea And Vomiting Naloxone HCl (Narcan) 0.2 mg IV Q2MIN PRN; Protocol PRN Reason: Opiate Reversal Naloxone HCl (Narcan) 0.2 mg IV Q2MIN PRN PRN Reason: Opiate Reversal Ondansetron HCl (Zofran) 4 mg IV NOW ONE Stop: 11/15/17 16:51 Last Admin: 11/15/17 17:46 Dose: 4 mg Ondansetron HCl (Zofran) 4 mg IV Q4H PRN PRN Reason: Nausea And Vomiting Ondansetron HCl (Zofran) 4 mg IV NOW PRN PRN Reason: Nausea And Vomiting Oxycodone/Acetaminophen (Percocet 5/325) 1 tab PO Q3H PRN PRN Reason: Pain, Moderate (4-6) Last Admin: 11/17/17 14:21 Dose: 1 tab Admin: 11/17/17 10:51 Dose: 1 tab Admin: 11/17/17 04:40 Dose: 1 tab Admin: 11/16/17 19:23 Dose: 1 tab Admin: 11/16/17 13:46 Dose: 1 tab Pantoprazole Sodium (Protonix) 40 mg IV NOW ONE Stop: 11/15/17 16:51 Last Admin: 11/15/17 17:46 Dose: 40 mg Pantoprazole Sodium (Protonix) 40 mg IV DAILY LIANG Last Admin: 11/17/17 08:16 Dose: 40 mg Admin: 11/16/17 14:53 Dose: 40 mg Consultations Consultation #1: Dr. Ortiz is happy to accept this patient. He requests normal saline at 125 cc/hour, no antibiotics, Dilaudid [employer], Zofran, and p.o. status Vital Signs - 8 hr 11/15/17 18:56 11/15/17 19:02 11/15/17 21:06 Temperature Pulse Rate 96 H 91 H Respiratory Rate 19 13 19 Blood Pressure Blood Pressure [Left Arm] 116/66 119/76 126/75 H Pulse Oximetry 96 94 94 11/15/17 22:00 11/15/17 22:37 11/15/17 23:30 Temperature Pulse Rate 96 H 92 H 94 H Respiratory Rate 15 15 14 Blood Pressure Blood Pressure [Left Arm] 129/78 H 126/70 H 122/75 H Pulse Oximetry 93 95 93 11/16/17 00:18 Temperature 97.7 F Pulse Rate 100 H Respiratory Rate 18 Blood Pressure 116/82 H Blood Pressure [Left Arm] Pulse Oximetry 95 MDM - Abdominal Pain <Virginia Valdez DO - Last Filed: 11/19/17 04:06> Lab Data Result diagrams: 11/15/17 17:48 11/15/17 17:48 Lab Results 11/15/17 11/15/17 11/15/17 Range/Units 17:48 17:48 17:48 WBC 5.2 (4.5-11.0) X10^3/uL RBC 3.92 L (4.5-5.9) X10^6/uL Hgb 10.1 L (13.5-17.5) g/dL Hct 31.9 L (41-53) % MCV 81.4 (80-100) fL MCH 25.8 L (26-34) PG MCHC 31.7 (30-36) % RDW 22.7 H (11.6-14.8) % Plt Count 286 (150-400) X10^3/uL Neut % (Auto) 61.5 (50-75) % Lymph % (Auto) 28.6 (25-40) % [place] % (Auto) 8.6 (3-14) % Eos % (Auto) 0.8 L (2-4) % Baso % (Auto) 0.5 (0-2) % Neut # (Auto) 3200 (0704-1199) /uL RBC Morphology Not Reportable Hypochromasia 1+ H Anisocytosis 3+ H Microcytosis 1+ H PT 11.7 (10.1-12.7) SECONDS INR 1.1 (0.9-1.3) APTT 30 (26.4-36.2) SECONDS Sodium 141 (137-145) mmol/L Potassium 3.6 (3.4-5.1) mmol/L Chloride 99 (98-107) mmol/L Carbon Dioxide 29 (22-32) mmol/L BUN 7 L (9-20) mg/dL Creatinine 0.60 L (0.66-1.25) mg/dL Estimated GFR > 60.0 (>60) mL/min BUN/Creatinine Ratio 11.7 (6-22) Glucose 85 (80-110) mg/dL Calcium 8.5 (8.4-10.2) mg/dL Total Bilirubin 1.6 H (0.2-1.3) mg/dL AST 196 H (17-59) IU/L ALT 46 (21-72) IU/L Alkaline Phosphatase 129 H (38-126) U/L Total Creatine Kinase 28 L (55-170) U/L Troponin I < 0.012 (0.01-0.034) ng/mL Total Protein 6.5 (6.3-8.2) g/dL Albumin 3.2 L (3.5-5.0) g/dL Globulin 3.3 (1.7-4.1) g/dL Albumin/Globulin Ratio 1.0 (1.0-2.8) Lipase 132 (23-300) U/L Hep Bs Antigen (NEGATIVE) s/c Hepatitis C Antibody (NEGATIVE) s/c HIV 1&2 Antibody (NEGATIVE) 11/16/17 11/16/17 Range/Units 15:53 15:53 WBC (4.5-11.0) X10^3/uL RBC (4.5-5.9) X10^6/uL Hgb (13.5-17.5) g/dL Hct (41-53) % MCV (80-100) fL MCH (26-34) PG MCHC (30-36) % RDW (11.6-14.8) % Plt Count (150-400) X10^3/uL Neut % (Auto) (50-75) % Lymph % (Auto) (25-40) % [place] % (Auto) (3-14) % Eos % (Auto) (2-4) % Baso % (Auto) (0-2) % Neut # (Auto) (5158-4900) /uL RBC Morphology Hypochromasia Anisocytosis Microcytosis PT (10.1-12.7) SECONDS INR (0.9-1.3) APTT (26.4-36.2) SECONDS Sodium (137-145) mmol/L Potassium (3.4-5.1) mmol/L Chloride (98-107) mmol/L Carbon Dioxide (22-32) mmol/L BUN (9-20) mg/dL Creatinine (0.66-1.25) mg/dL Estimated GFR (>60) mL/min BUN/Creatinine Ratio (6-22) Glucose (80-110) mg/dL Calcium (8.4-10.2) mg/dL Total Bilirubin (0.2-1.3) mg/dL AST (17-59) IU/L ALT 51 (21-72) IU/L Alkaline Phosphatase (38-126) U/L Total Creatine Kinase (55-170) U/L Troponin I (0.01-0.034) ng/mL Total Protein (6.3-8.2) g/dL Albumin (3.5-5.0) g/dL Globulin (1.7-4.1) g/dL Albumin/Globulin Ratio (1.0-2.8) Lipase (23-300) U/L Hep Bs Antigen Negative (NEGATIVE) s/c Hepatitis C Antibody Reactive H (NEGATIVE) s/c HIV 1&2 Antibody Negative (NEGATIVE) Point of care testing: Urine Dip Bedside Urine Glucose Negative Bedside Urine Bilirubin - Negative Bedside Urine Ketone - Negative Urine Specific [place] 1.015 Bedside Urine Occult Blood - Negative Bedside Urine pH 7.0 Bedside Urine Protein - Negative Bedside Urine Urobilinogen - Negative Bedside Urine Nitrite - Negative Bedside Urine Leukocytes - Negative Esterase <Marc Pitts, DO - Last Filed: 11/16/17 02:47> Lab Data Lab Results 11/15/17 11/15/17 11/15/17 Range/Units 17:48 17:48 17:48 WBC 5.2 (4.5-11.0) X10^3/uL RBC 3.92 L (4.5-5.9) X10^6/uL Hgb 10.1 L (13.5-17.5) g/dL Hct 31.9 L (41-53) % MCV 81.4 (80-100) fL MCH 25.8 L (26-34) PG MCHC 31.7 (30-36) % RDW 22.7 H (11.6-14.8) % Plt Count 286 (150-400) X10^3/uL Neut % (Auto) 61.5 (50-75) % Lymph % (Auto) 28.6 (25-40) % [place] % (Auto) 8.6 (3-14) % Eos % (Auto) 0.8 L (2-4) % Baso % (Auto) 0.5 (0-2) % Neut # (Auto) 3200 (0819-8135) /uL RBC Morphology Not Reportable Hypochromasia 1+ H Anisocytosis 3+ H Microcytosis 1+ H PT 11.7 (10.1-12.7) SECONDS INR 1.1 (0.9-1.3) APTT 30 (26.4-36.2) SECONDS Sodium 141 (137-145) mmol/L Potassium 3.6 (3.4-5.1) mmol/L Chloride 99 (98-107) mmol/L Carbon Dioxide 29 (22-32) mmol/L BUN 7 L (9-20) mg/dL Creatinine 0.60 L (0.66-1.25) mg/dL Estimated GFR > 60.0 (>60) mL/min BUN/Creatinine Ratio 11.7 (6-22) Glucose 85 (80-110) mg/dL Calcium 8.5 (8.4-10.2) mg/dL Total Bilirubin 1.6 H (0.2-1.3) mg/dL AST 196 H (17-59) IU/L ALT 46 (21-72) IU/L Alkaline Phosphatase 129 H (38-126) U/L Total Creatine Kinase 28 L (55-170) U/L Troponin I < 0.012 (0.01-0.034) ng/mL Total Protein 6.5 (6.3-8.2) g/dL Albumin 3.2 L (3.5-5.0) g/dL Globulin 3.3 (1.7-4.1) g/dL Albumin/Globulin Ratio 1.0 (1.0-2.8) Lipase 132 (23-300) U/L Hep Bs Antigen (NEGATIVE) s/c Hepatitis C Antibody (NEGATIVE) s/c HIV 1&2 Antibody (NEGATIVE) 11/16/17 11/16/17 Range/Units 15:53 15:53 WBC (4.5-11.0) X10^3/uL RBC (4.5-5.9) X10^6/uL Hgb (13.5-17.5) g/dL Hct (41-53) % MCV (80-100) fL MCH (26-34) PG MCHC (30-36) % RDW (11.6-14.8) % Plt Count (150-400) X10^3/uL Neut % (Auto) (50-75) % Lymph % (Auto) (25-40) % [place] % (Auto) (3-14) % Eos % (Auto) (2-4) % Baso % (Auto) (0-2) % Neut # (Auto) (4800-2771) /uL RBC Morphology Hypochromasia Anisocytosis Microcytosis PT (10.1-12.7) SECONDS INR (0.9-1.3) APTT (26.4-36.2) SECONDS Sodium (137-145) mmol/L Potassium (3.4-5.1) mmol/L Chloride (98-107) mmol/L Carbon Dioxide (22-32) mmol/L BUN (9-20) mg/dL Creatinine (0.66-1.25) mg/dL Estimated GFR (>60) mL/min BUN/Creatinine Ratio (6-22) Glucose (80-110) mg/dL Calcium (8.4-10.2) mg/dL Total Bilirubin (0.2-1.3) mg/dL AST (17-59) IU/L ALT 51 (21-72) IU/L Alkaline Phosphatase (38-126) U/L Total Creatine Kinase (55-170) U/L Troponin I (0.01-0.034) ng/mL Total Protein (6.3-8.2) g/dL Albumin (3.5-5.0) g/dL Globulin (1.7-4.1) g/dL Albumin/Globulin Ratio (1.0-2.8) Lipase (23-300) U/L Hep Bs Antigen Negative (NEGATIVE) s/c Hepatitis C Antibody Reactive H (NEGATIVE) s/c HIV 1&2 Antibody Negative (NEGATIVE) Point of care testing: Urine Dip Bedside Urine Glucose Negative Bedside Urine Bilirubin - Negative Bedside Urine Ketone - Negative Urine Specific [place] 1.015 Bedside Urine Occult Blood - Negative Bedside Urine pH 7.0 Bedside Urine Protein - Negative Bedside Urine Urobilinogen - Negative Bedside Urine Nitrite - Negative Bedside Urine Leukocytes - Negative Esterase MDM Narrative Medical decision making narrative: upon receipt of CT scan and noted abnormalities with gallbladder an ultrasound was ordered. Ultrasound findings are noted above including thickened wall with some pericholecystic fluid. No gallstones noted. I placed a call to Dr. Ortiz who was happy to accept this patient and will likely receive a cholecystectomy Discharge Plan Departure Patient Disposition: Admitted As Inpatient Clinical Impression: Acute acalculous cholecystitis Discharge Date/Time: 11/16/17 00:04 Interventions: ED Discharge Assessment Last Done: 11/16/17 00:03 Admit Date/Time: 11/15/17 23:56 Admit Provider: Jacky Ortiz ED Cosign/Signout <Virginia Valdez DO - Last Filed: 11/19/17 04:06> Sign Out Provider Sign Out Attestation: patient signed out to Dr. Pitts at shift change. Awaiting CT result and final disposition
--- NOTE | 2017-11-15 16:50 | DI.CT.S_ITS ---
PROCEDURE: CT ABDOMEN PELVIS W CON INDICATIONS: RIGHT UPPER QUADRANT AND RIGHT LOWER QUADRANT PAIN TECHNIQUE: After the administration of intravenous contrast, 5 mm thick sections acquired from the diaphragm to the symphysis. 5 mm coronal and sagittal reformats were acquired. For radiation dose reduction, the following was used: automated exposure control, adjustment of mA and/or kV according to patient size. COMPARISON: None. FINDINGS: Image quality: Excellent. ABDOMEN: Lung bases: Lung bases are clear. Heart size is normal. Small hiatal hernia. Solid organs: There is severe hepatic fatty infiltration. Liver is normal in size. Gallbladder wall is severely thickened. No opaque gallstones. Biliary system is non dilated. Pancreas enhances normally. Spleen is normal in size and enhancement. No adrenal nodules. Kidneys demonstrate normal size and enhancement, without hydronephrosis. There is a 2.5 cm cyst in the right kidney. Peritoneum and bowel: Stomach and duodenum are thickened. Terminal ileum is mildly thickened. There is also mild concentric thickening of the descending and sigmoid colon, as well as rectum. No free fluid or air. Nodes and vessels: No retroperitoneal or mesenteric adenopathy by size criteria. Aorta and inferior vena cava are normal in size. There is moderate to severe aortic and iliac artery atherosclerosis. Miscellaneous: No ventral hernias. PELVIS: Genitourinary: Bladder wall thickness is normal. Prostate is mildly enlarged. Miscellaneous: No inguinal hernias or adenopathy. Bones: No suspicious bony lesions. No vertebral body compression fractures. Severe degenerative disease at L5-S1. IMPRESSION: 1. There is thickening of stomach and duodenum, as well as to terminate ileum. The descending colon, sigmoid colon and rectum are also thickened. Differential diagnoses include infectious etiology versus inflammatory bowel disease. 2. There is severe thickening of the gallbladder. No gallstones. 3. Severe hepatic steatosis. 4. Simple right renal cyst. Dictated by: Gelacio Escobar M.D. on 11/15/2017 at 20:02 Transcribed by: ROGELIO on 11/15/2017 at 20:10 Approved by: Gelacio Escobar M.D. on 11/15/2017 at 20:38
--- NOTE | 2017-11-15 16:52 | DI.RAD.S_ITS ---
PROCEDURE: XR CHEST 1V INDICATIONS: sob TECHNIQUE: One view of the chest was acquired. COMPARISON: None. FINDINGS: Surgical changes and devices: None. Lungs and pleura: Hyperinflation suggesting COPD. No pleural effusions or pneumothorax. Lungs are clear. Mediastinum: Mediastinal contours appear normal. Heart size is normal. Bones and chest wall: No suspicious bony lesions. Overlying soft tissues appear unremarkable. IMPRESSION: 1. No acute cardiopulmonary disease. 2. COPD. Dictated by: Gelacio Escobar M.D. on 11/15/2017 at 17:46 Approved by: Gelacio Escobar M.D. on 11/15/2017 at 17:46
[2017-11-15] MEDS: ALBUTEROL/IPRATROPIUM 3 ML AMPUL INH (17:06)
[2017-11-15] MEDS: SODIUM CHLORIDE 0.9% 1,000 ML 150 ML IV (17:45)
[2017-11-15] MEDS: PANTOPRAZOLE 40 MG VIAL IV (17:46)
[2017-11-15] MEDS: ONDANSETRON 4 MG/2 ML INJ IV (17:46)
[2017-11-15 17:58] LABS: Add Manual Diff / Slide Review NO; Basophils Percent Auto 0.5 % (0-2); Eosinophils Percent Auto 0.8 % (2-4); Hematocrit 31.9 % (41-53); Hemoglobin 10.1 g/dL (13.5-17.5); Lymphocytes Percent Auto 28.6 % (25-40); Mean Corpuscular HGB Conc 31.7 % (30-36); Mean Corpuscular Hemoglobin 25.8 PG (26-34); Mean Corpuscular Volume 81.4 fL (80-100); Monocytes Percent Auto 8.6 % (3-14); Neutrophils Absolute Auto 3200 /uL (3000-5900); Neutrophils Percent Auto 61.5 % (50-75); Platelet Count 286 X10^3/uL (150-400); Red Blood Cell Count 3.92 X10^6/uL (4.5-5.9); Red Cell Distribution Width 22.7 % (11.6-14.8); White Blood Cell Count 5.2 X10^3/uL (4.5-11.0)
[2017-11-15 18:00] LABS: INR 1.1 (0.9-1.3); Prothrombin Time 11.7 SECONDS (10.1-12.7)
[2017-11-15 18:02] LABS: PTT Partial Thromboplastin Tim 30 SECONDS (26.4-36.2)
[2017-11-15 18:07] LABS: Alanine Aminotransferase 46 IU/L (21-72); Albumin 3.2 g/dL (3.5-5.0); Alkaline Phosphatase 129 U/L (38-126); Aspartate Aminotransferase 196 IU/L (17-59); BUN Creatinine Ratio 11.7 (6-22); Bilirubin Total 1.6 mg/dL (0.2-1.3); Blood Urea Nitrogen 7 mg/dL (9-20); Calcium 8.5 mg/dL (8.4-10.2); Carbon Dioxide 29 mmol/L (22-32); Chloride 99 mmol/L (98-107); Creatine Kinase 28 U/L (55-170); Estimated Glomerular Filt Rate > 60.0 mL/min (>60); Globulin 3.3 g/dL (1.7-4.1); Glucose 85 mg/dL (80-110); HEMOLYSIS < 15 (0-50); Lipase 132 U/L (23-300); Potassium 3.6 mmol/L (3.4-5.1); Sodium 141 mmol/L (137-145); Total Protein 6.5 g/dL (6.3-8.2)
[2017-11-15 18:26] LABS: Troponin I < 0.012 ng/mL (0.01-0.034)
[2017-11-15 18:28] LABS: Anisocytosis 3+; Hypochromasia 1+; Microcytosis 1+
--- NOTE | 2017-11-15 20:08 | DI.US.S_ITS ---
PROCEDURE: US ABDOMEN LIMITED INDICATIONS: abnormal appearance of GB on CT TECHNIQUE: Real-time focused scanning was performed of the abdomen, with image documentation. COMPARISON: [facility], CT, CT ABDOMEN PELVIS W CON, 11/15/2017, 18:19. FINDINGS: No gallstones. There is diffuse skeletal thickening measuring 7 mm. There is trace pericholecystic fluid. Common bile duct measures 8 mm. IMPRESSION: 1. No gallstones. There is, however, severe gallbladder wall thickening and trace amount of pericholecystic fluid. Recommend clinical correlation for acalculus cholecystitis. 2. Common bile duct is mildly distended measuring 8 mm. Dictated by: Gelacio Escobar M.D. on 11/15/2017 at 21:50 Approved by: Gelacio Escobar M.D. on 11/15/2017 at 21:53
[2017-11-16] VITALS (23 sets, daily range): BP systolic 102–135; BP diastolic 57–91; PULSE 76–102; RESP 13–20; TEMP 36.2–37.2; O2SAT 91–100; BMI 19.5
--- NOTE | 2017-11-16 | PATH_ITS ---
[facility] Accession Number: [id number] . 01 Material submitted: . GALLBLADDER . 02 Diagnosis: Gallbladder, Laparoscopic Cholecystectomy: Mild, chronic cholecystitis. MRV/11/19/2017 . 02 Electronically signed: . Erika Mcgrath MD, Pathologist NPI- [id number] . 01 Gross description: . Received in formalin, labeled gallbladder, is an intact gallbladder (length-6.0 cm, diameter-3.0 cm) with gutierrez-pink, smooth, shiny serosa and a patent cystic duct. No lymph nodes are identified. The lumen contains green-brown, gelatinous material mixed with dark brown, solid, paste-like material. The mucosa is brown and semi-velvety. The wall is up to 1.0 cm thick. No nodules, masses, or lesions are identified. Section code: (A1) cystic duct resection margin and two serial sections from the body; (A2) two longitudinal sections from the fundus. ([id number]) /FRR . 02 Pathologist provided ICD-10: K81.1 . 02 CPT . 341974 Performed at: 01 [facility] [address] [facility] [place] [facility]– [place], [place], [place] [id number] MD Carlos Green MD Phone: [phone] Performed at: 02 [facility] [address] [place], [place] [id number] MD Alex Byrd MD Phone: [phone]
[2017-11-16] MEDS: HYDROMORPHONE PCA 6 MG/30 ML PCA.VIAL IV (01:03)
[2017-11-16] MEDS: SODIUM CHLORIDE 0.9% 1,000 ML 125 ML IV (01:03)
--- NOTE | 2017-11-16 01:44 | PC.NURSE ---
Pt. admitted from ER for cholecystitis. Pt. is alert and oriented, denies pain, and nausea. Pt. admitted to drinking a gallon of vodka/week. Informed that he would be a risk for ETOH withdrawal. No history of alcohol seizures. Oriented pt. to room, use of call light and bed controls and informed him to call for assistance if needed to use the bathroom for safety.
--- NOTE | 2017-11-16 07:47 | PM.HP.1 ---
History of Present Illness Date Patient Seen: 11/16/17 Time Patient Seen: 07:47 Chief complaint: Abdominal Pain Narrative: 67-year-old male who presented the emergency department late last evening with 6 day history of progressive epigastric and right upper quadrant abdominal pain radiating down the right lateral abdomen. Denies any back or shoulder pain. No associated chest pain or shortness of breath. His appetite has been poor, and he has been eating only very small portions in frequently over the last 1-2 weeks. He had episodes of nausea and vomiting with eating over the last 3-4 days. Last bowel movement was several days ago. He is passing flatus. He reports his most recent bowel movement was hard but denies any acholic stools. He has had no brown urine or yellow jaundice. Denies any fever or chills. Pain remains in the right upper quadrant but is currently controlled with intravenous medications. He has never had any type of similar episodes in the past. Patient History Medical History Acalculous cholecystitis (Acute) Alcohol abuse (Acute) COPD (chronic obstructive pulmonary disease) (Acute) Chronic bronchitis with productive mucopurulent cough (Acute) History of skull fracture (Acute) History of traumatic brain injury (Acute) Tobacco abuse (Acute) Surgical History H/O craniotomy (Acute) Family & Social History Family History: Reviewed 11/16/17 by Jacky Ortiz MD Social History: household members none Prior Living Arrangements Apartment/Condo Safety & Behavioral: Feels Safe in Current Yes Environment Been Physically Hurt or No Threatened By a Person Suicidal Ideation Description Vague Suicide Plan Description No Plan Tobacco & Substance use: Tobacco type cigarettes Smoking Status Current every day smoker Smoking packs per day 1 alcohol intake current alcohol intake frequency 3 or more drinks per day Substance Use Type marijuana Meds Home Medications Medication Instructions Recorded Confirmed Type No Known Home Medications 11/16/17 11/16/17 History Allergies Allergy/AdvReac Type Severity Reaction Status Date / Time all opiates Allergy Uncoded 11/15/17 19:08 Review of Systems Review of Systems All systems reviewed & are unremarkable except as noted in HPI and below Exam Vital Signs (past 8 hours): - 11/16/17 00:18 11/16/17 05:47 Temperature 97.7 F 98.0 F Pulse Rate 100 H 76 Respiratory Rate 18 16 Blood Pressure 116/82 H 115/73 Pulse Oximetry 95 94 Oxygen Delivery Method Room Air Narrative Exam Narrative: Elderly male in no acute distress lying comfortably in his hospital bed. Alert oriented x3 Sclera nonicteric Neck is supple without lymphadenopathy Chest clear to auscultation bilaterally with regular rate and rhythm. He does have a few coarse rhonchi that clears with cough bilaterally. No wheezes. Abdomen is protuberant but soft. Mildly obese. Nondistended. No surgical scars are noted. He is tender in the epigastrium and particularly in the right upper quadrant. I am able to palpate the fundus of his gallbladder actually with noted tenderness. He has a positive Bautista sign. He is nontender elsewhere. No fluid wave. Extremities show no clubbing, cyanosis, or edema. He does have muscular atrophy of the upper and lower extremities consistent with age and poor nutritional status. Neurologic examination shows him to be without tremor and otherwise alert. He answers all questions appropriately. Objective Labs Result Diagrams: 11/15/17 17:48 11/15/17 17:48 Labs: Laboratory Results - last 24 hr 11/15/17 11/15/17 11/15/17 17:48 17:48 17:48 WBC 5.2 RBC 3.92 L Hgb 10.1 L Hct 31.9 L MCV 81.4 MCH 25.8 L MCHC 31.7 RDW 22.7 H Plt Count 286 Neut % (Auto) 61.5 Lymph % (Auto) 28.6 [place] % (Auto) 8.6 Eos % (Auto) 0.8 L Baso % (Auto) 0.5 Neut # (Auto) 3200 RBC Morphology Not Reportable Hypochromasia 1+ H Anisocytosis 3+ H Microcytosis 1+ H PT 11.7 INR 1.1 APTT 30 Sodium 141 Potassium 3.6 Chloride 99 Carbon Dioxide 29 BUN 7 L Creatinine 0.60 L Estimated GFR > 60.0 BUN/Creatinine Ratio 11.7 Glucose 85 Calcium 8.5 Total Bilirubin 1.6 H AST 196 H ALT 46 Alkaline Phosphatase 129 H Total Creatine Kinase 28 L Troponin I < 0.012 Total Protein 6.5 Albumin 3.2 L Globulin 3.3 Albumin/Globulin Ratio 1.0 Lipase 132 I have personally reviewed his chest x-ray, CT scan of the abdomen and pelvis, and abdominal ultrasound done through the emergency department. Chest x-ray shows COPD changes only. No infiltrates. CT scan shows markedly thickened gallbladder with pericholecystic fluid and associated inflammation along the stomach and duodenum. There may be some mild questionable thickening of the terminal ileum but this could be due to scant fluid in the right pericolic gutter consistent with cholecystitis. Ultrasound shows no obvious stones but the common bile duct is mildly dilated at 8 mm. No evidence of pancreatitis on CT scan or by laboratory studies. No ascites. No cirrhotic nodularity of the liver. No splenomegaly. Assessment & Plan Plan: Assessment/Plan Narrative: 67-year-old male with acalculous cholecystitis but dilated common bile duct. This could be due to sludge or small stones not detected on ultrasound. He has no evidence of cholangitis. Liver function tests are mildly elevated, but this could be due to his alcohol intake. I discussed this with the patient in detail, and I also informed him that he is at high risk for alcohol withdrawal during his hospitalization. We will monitor for this accordingly and treat with Ativan as needed. At this point I have recommended urgent laparoscopic cholecystectomy with intraoperative cholangiography given the above symptoms and findings. Technical details of the operation were explained. Anticipated healing and recovery times including hospitalization were discussed. Risks, benefits, alternatives were explained. Alternative of observation only and treating with antibiotics was discussed, but I believe that his risk of further deterioration with potential sepsis are significant. Risks of surgery including but not limited to anesthesia, bleeding, need for transfusion, infection, abscess, pain, need for drains, scars, need to convert open procedure, retained common duct stones, bile leak, liver injury, gastric injury, duodenal injury, small-bowel injury, colon injury, bladder injury, bile duct injury, major vascular injury, need for further major abdominal surgery, need for further endoscopic procedure such as ERCP, inability to obtain intraoperative cholangiogram due to inflammatory changes, and poor wound healing were all discussed in detail. All questions were answered to his satisfaction, and he voiced understanding. Consent was placed on the chart. Orders were written. We will proceed later today as above. Of note, the patient clearly directed me to establish his code status as do not resuscitate. He desires absolutely no intervention including cardiac medications, CPR, artificial ventilatory support, or cardioversion in the event of cardiopulmonary arrest. I discussed this with him in detail, and he understands that we cannot honor such a request while he is under anesthesia in the operating room. However, we will certainly honor his request before and after surgery. He found this to be consistent with his wishes and was agreeable to such. Therefore his code status has been officially entered in the orders as DNR. Quality VTE Deep Vein Thrombosis/Pulmonary Embolism Present on Admission: No
--- NOTE | 2017-11-16 08:00 | PC.NURSE ---
Day shift: No c/o pain. Dr Ortiz spoke w/ Pt and surgery today. Pt off unit at approx 0850. TREE SURGEON is turned off.
--- NOTE | 2017-11-16 08:01 | PM.PREOP ---
Pre-operative Note Interval Note Pre-op Check: Yes History & Physical Reviewed by Physician, Yes Exam Performed and Yes History & Physical exam performed today by Physician Changes: No H&P completed within 30 days and has changed as indicated here:: Patient seen and examined this morning. History physical examination and on the chart. No changes since surgery. Proceed with cholecystectomy as planned.
[2017-11-16] MEDS: LACTATED RINGERS 1,000 ML 42 ML IV ×2 (09:07→11:33)
[2017-11-16] MEDS: FAMOTIDINE 20 MG/50 ML PIGGYBACK 200 MG IV (09:11)
--- NOTE | 2017-11-16 09:15 | SUR.HOLD ---
dr cowan made aware of lung sounds and pt hx of smoking, albuterol and famotidine administered as ordered.
--- NOTE | 2017-11-16 09:37 | PC.NURSE ---
Day shift: Pt remains off the AC unit at this time. Unable to chart on worklist due to this.
[2017-11-16] MEDS: CEFAZOLIN 2 GM/100 ML FROZ.PIGGY IV ×2 (09:45→19:23)
--- NOTE | 2017-11-16 10:21 | SUR.OPER ---
Supine on padded OR bed, head on pillow, safety belt at thigh, left arm secured on padded armboard. Left arm padded and tucked at side. Legs uncrossed. Padded footboard in place. Tape over blanket to secure lower legs.
[2017-11-16] MEDS: LIDOCAINE 1% W/EPI INJ 20 ML INJ (10:36)
[2017-11-16] MEDS: BUPIVACAINE 0.5% (PF) VIAL 30 ML INJ (10:37)
[2017-11-16] MEDS: IOPAMIDOL 50 ML VIAL INJ (10:39)
[2017-11-16] MEDS: ALBUTEROL 2.5 MG/3 ML NEB (ADULT) INH (12:10)
[2017-11-16] MEDS: fentaNYL 100 MCG/2 ML INJ 50 MCG IV ×4 (12:25→12:47)
--- NOTE | 2017-11-16 12:27 | P.OP_ITS ---
Operative Date/Time/Diagnoses Date of procedure: 11/16/17 Time of procedure: 12:14 Pre-op diagnosis: Acalculous cholecystitis Post-op diagnosis: same Procedure & Clinicians Procedure: 1. Laparoscopic cholecystectomy 2. Attempted intraoperative cholangiography but unable to obtain secondary to obstructed duct Same procedure as scheduled: Yes Indications: 67-year-old male with six-day history of progressive abdominal pain. Examination and evaluation were consistent with acute acalculous cholecystitis. He also had mild elevation of his liver function test. Intraoperative cholangiography in conjunction with laparoscopic cholecystectomy was recommended urgently. Surgeon: Jacky Ortiz Click Yes if Unassisted: Yes Anesthesia Type: General Operative Notes Findings: 1. Free fluid in the right upper quadrant that was bile tinge consistent with acute cholecystitis 2. Mildly nodular liver consistent with early alcoholic cirrhosis or hepatic steatosis 3. Significant dense adhesions in the right upper quadrant between the omentum , stomach, duodenum, gallbladder, and liver 4. Inability to obtain intraoperative cholangiography due to distally obstructed cystic duct. Closure Type: primary Specimen(s): other (Gallbladder) Implants & Drains: 10 flat Esvin-Schofield drain adjacent to gallbladder fossa and right upper quadrant Applied: drain(s) (As above) Estimated Blood Loss (mL): 50 Blood products transfused: none Procedure in detail: After obtaining informed consent the patient was brought to the operating room placed supine on the table. After satisfactory induction of anesthesia a SCOAP time-out was performed per standard protocol. Jeter catheter was inserted to decompress the urinary bladder. Abdomen was prepped and draped in usual sterile fashion. A one-to-one mixture 1% lidocaine with 1 100,000 epinephrine and 0.5% plain Marcaine was injected in the skin and subcutaneous tissue at the superior aspect of the umbilicus for postoperative analgesia. Vertical midline incision was created with a 11 scalpel blade at the superior aspect of the umbilicus for a distance of approximately 2 cm. Rectus fascia was exposed and divided in the midline under direct visualization with a 11 scalpel blade. Edges of the fascia were secured bilaterally with Deb clamps and elevated into the operative field. Two individual interrupted 0 Vicryl suture were then placed superiorly and inferiorly to secure the fascia and the underlying peritoneum was secured between hemostats. Under direct visualization the peritoneal cavity was entered between hemostats sharply with Metzenbaum scissors. A blunt 12 mm Nugent trocar was inserted under direct visualization and a carbon dioxide pneumoperitoneum was created. Laparoscopic visualization of the abdomen was then achieved with a 30 degree 5 mm laparoscoped. There was free fluid in the right upper quadrant that was bile tinged. No sharmila pus. Visible portions of the stomach, colon, and small bowel were otherwise unremarkable. Examination was somewhat limited however. Right upper quadrant was noted to have significant dense adhesions between the omentum , duodenum, gallbladder, and liver consistent with acute on chronic cholecystitis most likely. Patient was placed in reverse Trendelenburg position and appropriate position chosen for placement of an epigastric 5 mm trocar. Local anesthesia was injected and the skin was incised a 11 scalpel blade followed by insertion of a 5 mm trocar under direct laparoscopic visualization. In a similar fashion two individual 5 mm trocars placed in right lateral abdomen. Meticulous blunt and sharp dissection was then carried out with a combination of the monopolar cautery, laparoscopic Kittner dissecting his , and Milagros graspers in order to expose the liver edge and the fundus of the gallbladder. The dissection was extremely difficult due to significant dense almost concrete adhesions to the gallbladder. Eventually we were able to expose the gallbladder down to the level of the infundibulum. Fundus of the gallbladder secured with a ratcheted grasper and elevated superiorly and medially over the liver edge. Further ongoing very meticulous laborious dissection was carried out until the infundibulum was visualized. However there were still significant adhesions and fibrous material was encasing the triangle of Calot. Because I could not identify critical structures I elected to dissect the gallbladder from the hepatic bed beginning at the fundus and proceeding toward the infundibulum. Monopolar dissection was used to liberate the gallbladder from the hepatic bed after elevating the liver with the 5 mm flexible liver retractor.. At this point the gallbladder remained attached by the cystic duct and cystic artery which were still encased in significant adhesions. Again, I employed meticulous blunt dissection to expose the structures and clearly identify both the junction of the cystic duct and cystic artery with the gallbladder. A single clip was placed at the junction of the cystic duct and the gallbladder and a small incision made in the duct with the laparoscopic scissors. There was a small amount of bile tinged fluid but no sharmila bile. Cholangiogram catheter was inserted into the duct and secured with the Lozano clamp. However, the catheter would not flush with saline most likely due to distal cystic duct obstruction. I exchanged this cholangiogram catheter for a standard Taut catheter which easily inserted into the cystic duct was secured with the Lozano clamp. Again, however, the duct would not flush with saline most likely due to distal obstruction. I removed the catheter and there was immediate expression of saline under pressure in a retrograde fashion from the cystic duct. Overall the cystic duct was likely obstructed which was not completely on anticipated given the significant adhesions and acute inflammatory process. I therefore abandoned the cholangiogram and placed 3 clips on the residual portion of the cystic duct and then divided it with the scissors. Cystic artery was controlled with 2 clips and then 1 distally and subsequently divided. This point the gallbladder was completely liberated due to previous dissection and the specimen was placed in an endo-pouch. Specimen was retrieved through the umbilical site and sent for permanent section. Liver bed and previously placed clips were meticulously examined and noted be hemostatic. There was no evidence of any bile leak from either the liver or the cystic duct stump. Clips were in good position. A 10 flat Esvin-Schofield drain was placed into the right upper quadrant through the most lateral 5 mm trocar site. Drain was secured to the skin with 3 0 nylon suture. Patient was returned to the supine position on the right upper quadrant was irrigated with copious amounts of sterile saline solution. Irrigant was noted to return clear. Instruments and trocars were then removed and hemostasis was verified. Carbon dioxide was evacuated. Fascia at the umbilical site was closed with 0 Vicryl suture. Skin at the 3 remaining incisions was closed in a subcuticular running fashion with 4 0 Monocryl suture. Dermal adhesive was placed along the skin. Dry gauze drain sponge was placed around the drain site for dressing. Anesthesia was reversed and patient extubated in the operating room. He was taken recovery in stable condition. Complications: none Condition: stable Disposition: PACU Plan for aftercare: 1. Return to acute care surgical floor for ongoing convalescence 2. Monitor for alcohol withdrawal 3. Monitor clinically for any evidence of residual choledocholithiasis or biliary obstruction.
[2017-11-16] MEDS: LACTATED RINGERS 1,000 ML 70 ML IV (13:42)
[2017-11-16] MEDS: HYDROMORPHONE 0.5 MG INJ IV (13:43)
[2017-11-16] MEDS: OXYCODONE/ACETAMINOPHEN 5/325 TABLET 1 TAB PO ×2 (13:46→19:23)
[2017-11-16] MEDS: ENOXAPARIN 40 MG/0.4 ML SYRINGE SUBCUT (13:47)
--- NOTE | 2017-11-16 13:52 | PC.NURSE ---
Day shift: Pt back on unit at approx 1330. orders for meds provided as indicated. LUPE drain patent and [employer]ER emptied 50ml serosang fluid. Pt c/o pain in ABD area 10/07. Medicated per JUN. Pt tolerating water and ice. He denies being hungry at this time. He appears to have some Jaundice. Pt states that he has Hep C. Call light in reach.
[2017-11-16] MEDS: PANTOPRAZOLE 40 MG VIAL IV (14:53)
--- NOTE | 2017-11-16 14:56 | PC.NURSE ---
Day shift: Called for Dr Ortiz but he is in surgery. Call ed to report the LUPE drain leaking where is going into the Pt. Will pass this along in report so next shift call follow up. Call light in reach. Pt working w/ RT at this time.
[2017-11-16] MEDS: ALBUTEROL/IPRATROPIUM 3 ML AMPUL INH ×2 (15:32→20:36)
[2017-11-16 16:23] LABS: Alanine Aminotransferase 51 IU/L (21-72)
[2017-11-16 18:24] LABS: Hepatitis B Surface Antigen NEGATIVE s/c (NEGATIVE)
[2017-11-16 19:15] LABS: Hep C Virus Ab w/Reflex Quant REACTIVE s/c (NEGATIVE)
[2017-11-16 20:10] LABS: HIV 1 and 2 Antibody NEGATIVE (NEGATIVE)
[2017-11-17 00:30] VITALS: O2SAT 96
--- NOTE | 2017-11-17 00:56 | PC.NURSE ---
0030 Denies any bladder discomfort, bladder scanned noted 206 cc. No C/O abdominal incisions pain, LUPE site drsg. saturated with sero-sang. drainage. Cleansed site & drsgs. changed, will monitor.
[2017-11-17] MEDS: CEFAZOLIN 2 GM/100 ML FROZ.PIGGY IV (02:48)
[2017-11-17] MEDS: OXYCODONE/ACETAMINOPHEN 5/325 TABLET 1 TAB PO ×3 (04:40→14:21)
[2017-11-17 04:46] VITALS: BP 122/67; PULSE 120; RESP 18; TEMP 36.7; O2SAT 94
[2017-11-17 05:00] VITALS: O2SAT 97
[2017-11-17] MEDS: LACTATED RINGERS 1,000 ML 70 ML IV (05:46)
[2017-11-17 07:52] VITALS: BP 109/69; PULSE 85; RESP 16; TEMP 36.8; O2SAT 94
[2017-11-17] MEDS: PANTOPRAZOLE 40 MG VIAL IV (08:16)
[2017-11-17] MEDS: ENOXAPARIN 40 MG/0.4 ML SYRINGE SUBCUT (08:16)
[2017-11-17 08:24] VITALS: PULSE 110; RESP 16; O2SAT 96
[2017-11-17] MEDS: ALBUTEROL/IPRATROPIUM 3 ML AMPUL INH (08:24)
[2017-11-17 09:00] VITALS: O2SAT 93
--- NOTE | 2017-11-17 09:05 | PM.DS.1 ---
History of Present Illness Date Patient Seen: 11/17/17 Time Patient Seen: 09:05 Chief complaint: Abdominal Pain Narrative: 67-year-old male who presented the emergency department late last evening with 6 day history of progressive epigastric and right upper quadrant abdominal pain radiating down the right lateral abdomen. Denies any back or shoulder pain. No associated chest pain or shortness of breath. His appetite has been poor, and he has been eating only very small portions in frequently over the last 1-2 weeks. He had episodes of nausea and vomiting with eating over the last 3-4 days. Last bowel movement was several days ago. He is passing flatus. He reports his most recent bowel movement was hard but denies any acholic stools. He has had no brown urine or yellow jaundice. Denies any fever or chills. Pain remains in the right upper quadrant but is currently controlled with intravenous medications. He has never had any type of similar episodes in the past. Discharge Providers Date of admission: 11/15/17 23:56 Consults: 11/16/17 13:32 Consult to Dietitian, Adult Routine Comment: Reason For Exam: moderate protein malnutrition Consult to Discharge Planning Routine Comment: Consult to Physical Therapy Evaluate & Treat Comment: Physician Instructions: Evaluate and Treat Consult to Respiratory Therapy Evaluate & Treat Comment: Physician Instructions: Evaluate and treat Discharge provider: Jacky Ortiz MD Summary Discharge Diagnosis: 1. Acute on chronic acalculous cholecystitis 2. Alcohol abuse 3. Tobacco abuse 4. Reactive antibody for hepatitis C 5. History of traumatic brain injury 6. History of skull fracture 7. History of craniotomy for skull fracture 8. Chronic bronchitis secondary to tobacco abuse Hospital Course: Patient presented to the emergency department with severe ongoing epigastric and right upper quadrant abdominal pain of at least 1 week duration. Examination and evaluation were consistent with acute cholecystitis. He was taken for laparoscopic cholecystectomy and attempted intraoperative cholangiography on November 16, 2017. He tolerated the procedure well. Postoperatively he was admitted to the regular surgical floor with a Esvin-Schofield drain in place. Drain is collecting serosanguineous fluid only. No bile. Incisions are healing nicely without evidence of infection or breakdown. His pain is well controlled with oral agents. He has had spontaneous return of normal baseline bowel and bladder function. He is tolerating a diet without difficulty. No fever or other issues with his vital signs. He is ambulating normally. He has been taught drain care and is comfortable with such. He was placed on alcohol withdrawal precautions, but had no evidence of significant issues and did not require intervention. I did behavioral health counselor him regarding alcohol and tobacco cessation. At this time he is not inclined to do so. Because of his overall stable condition he is discharged home on postoperative day 1. Drain will be left in place. He will follow up in the surgery clinic in the next few days for drain removal and wound check. He understands to return for fever, chills, progressive pain, nausea, vomiting, inability to tolerate a diet, or evidence of wound infection. Status at Discharge Cognitive/behavioral status at discharge: Alert orient x3 Functional status at discharge: independent ambulation Overall status at discharge: patient is back to baseline Time Spent with Patient Less than 30 minutes Exam Vital Signs (past 8 hours): - 11/17/17 04:46 11/17/17 05:00 11/17/17 07:52 Temperature 98.0 F 98.2 F Pulse Rate 120 H 85 Respiratory Rate 18 16 Blood Pressure 122/67 H 109/69 Pulse Oximetry 94 97 94 11/17/17 08:24 Temperature Pulse Rate 110 H Respiratory Rate 16 Blood Pressure Pulse Oximetry 96 Oxygen Delivery Method Room Air Oxygen Flow Rate 0 Narrative Exam Narrative: Well-nourished well-developed male in no acute distress. Lying comfortably in bed. Alert oriented x3. Sclera nonicteric Neck supple Chest clear to auscultation bilaterally but he does have copious rhonchi that clear with cough due to chronic tobacco use. Regular rate and rhythm. Abdomen soft, nondistended, appropriately tender. No guarding or rebound. Drain output is non bilious. Incisions are clean, dry, and intact without erythema or ecchymosis. Extremities show no clubbing, cyanosis, or edema Objective Labs Result Diagrams: 11/15/17 17:48 11/15/17 17:48 Labs: Laboratory Results - last 24 hr 11/16/17 11/16/17 15:53 15:53 ALT 51 Hep Bs Antigen Negative Hepatitis C Antibody Reactive H HIV 1&2 Antibody Negative Discharge Plan Discharge Plan Patient Disposition: Home, Self-Care Discharge comment: Empty and record drain output as directed Provider Discharge Instructions Diet: Diet as Tolerated Activity: May walk as much as desired May climb stairs May ride in vehicle No driving while taking opioid pain medication May shower beginning November 17, 2017 Cold/Heat Therapy: May apply ice packs to incisions as needed for comfort Wound Care Report to your healthcare provider any signs of infection, such as:: chills, fever, increased pain and unusual drainage Dressing: Change drain dressing as needed but no other dressings required Do not soak incisions in bathtub or pool for at least 2 weeks Discharge Data Attending Provider: Jacky Ortiz Admit Date/Time: 11/15/17 23:56 Quality VTE Deep Vein Thrombosis/Pulmonary Embolism Present on Admission: No
--- NOTE | 2017-11-17 09:55 | PT.IIE ---
Current Diagnoses Cholecystitis, unspecified (11/15/17) Surgery Performed Operation Date: 11/16/17 08:45 Actual Procedures p Laparoscopic Cholecystectomy - Jacky Ortiz MD Surgical History (Last Reviewed 11/16/17 @ 07:50 by Jacky Ortiz MD) H/O craniotomy (Acute) Medical History (Last Reviewed 11/16/17 @ 07:50 by Jacky Ortiz MD) Acalculous cholecystitis (Acute) Alcohol abuse (Acute) COPD (chronic obstructive pulmonary disease) (Acute) Chronic bronchitis with productive mucopurulent cough (Acute) History of skull fracture (Acute) History of traumatic brain injury (Acute) Tobacco abuse (Acute) Physical Therapy Inpatient Evaluation/Re-Eval M1 PT/OT-IP Prior Functional Status Start: 11/17/17 12:32 Freq: NEEDED Status: Active Protocol: Document 11/17/17 09:55 AB (Rec: 11/17/17 12:43 AB [id number]) Medical Review Prior Functional Status Medical History Reviewed Yes Communication able to make needs known Mobility and Gait stated that he is iindependent with all mobilities and ambulation without AD indoors but occasionally uses SPC outdoors and also uses an electric scooter Social History Household Members none Living Arrangements Apartment/Condo Number of Floors (Floors) One Floor Number of Stairs To Enter/Railing? stated that he lives in a senior housing type apartment and his apartment is on the first floor Home Environment Standard Height Toilet Walk in Shower Built-In Shower Seat Home Equipment Straight Cane Power Wheelchair/Scooter Hand Held Shower Grab Bars Near Toilet Grab Bars In Shower Employment Status Retired Additional Social History Comment neighbors checks on him daily M2 PT-IP Current Condition Start: 11/17/17 12:32 Freq: NEEDED Status: Active Protocol: Document 11/17/17 09:55 AB (Rec: 11/17/17 12:43 AB [id number]) Physical Therapy Current Condition Current Condition Evaluation Date 11/17/17 Treatment Diagnosis acute cholecystitis s/p laparoscopic cholecystectomy; difficulties with amb Onset Date 11/15/17 Precautions Abdominal Surgery Precautions Log Roll Lifting Restrictions Gait Belt above Incisional Area M3 PT-IP Subjective Start: 11/17/17 12:32 Freq: NEEDED Status: Active Protocol: Document 11/17/17 09:55 AB (Rec: 11/17/17 12:43 AB [id number]) Subjective Physical Therapy Visit Type Type Initial Evaluation Visit Start Time 09:55 Visit Stop Time 10:30 Total Visit Minutes 35 Number of [employer]ESS [employer] Visits 0 Physical Therapy Visit Comments Patient Comments pt agreeable to do therapy Short Term Goals to go home Therapy Pain Assessment Pain When Pain Assessed At Rest Pain Present Pain Present Pain Reported Location Right Abdomen Intensity 5 M4 PT-IP Mobility and Gait Start: 11/17/17 12:32 Freq: NEEDED Status: Active Protocol: Document 11/17/17 09:55 AB (Rec: 11/17/17 12:43 AB [id number]) PT-Bed Mobility Assessment Supine to Sit Supine to Sit Standby Assistance PT-Transfer Assessment Sit to and From Stand Sit to and from Stand Standby Assistance Equipment Transfer Assistive Device Gait Belt Straight Cane Orthotic/Prosthetic Devices or Brace: No Transfers Transfer Destination Chair Transfer Technique pt ambulated towards the chair using FWW Transfer Ability Level of Assist Standby Assistance 1 Person Assistance Use of Upper Extremities Gait Assessment Gait Gait Assistance Required: Standby Assistance Distance (Feet) (feet) 75 Able to Maintain Weight Bearing Status Yes During Gait Assistive Devices Assistive Device None Gait Belt Straight Cane Orthotic/Prosthetic Devices or Brace: No Factors Limiting Gait Function Factors Limiting Gait Function Decreased Activity Tolerance Decreased Strength Pain Comments Gait Comments assessed ambulation susing SPC and pt completed SBA up to 75ft. also assessed ambulation without AD and pt completed SBA ~ 40 ft. PT-Balance Assessment Sitting Balance and Reactions Static Sitting Balance Ability Good Dynamic Sitting Balance Ability Good Standing Balance and Reactions Static Standing Balance Ability Good Dynamic Standing Balance Ability Fair M5 PT-IP Objective Assessments Start: 11/17/17 12:32 Freq: NEEDED Status: Active Protocol: Document 11/17/17 09:55 AB (Rec: 11/17/17 12:43 AB [id number]) Orientation Orientation/Cognition Level of Alertness Alert Orientation Name Age Birthday Month Date Year Day of Week Place Situation Safety Awareness Understands Safety Issues Gross Range of Motion Lower Extremity ROM Assessment Within Functional Limits Strength Lower Extremity Strength Assessment Within Functional Limits Muscle Tone Muscle Tone WNL Yes M6 PT-IP Treatment Start: 11/17/17 12:32 Freq: NEEDED Status: Active Protocol: Document 11/17/17 09:55 AB (Rec: 11/17/17 12:43 AB [id number]) Physical Therapy Treatment Education Education Provided Precautions Safety M7 PT-IP Assessment and Plan Start: 11/17/17 12:32 Freq: NEEDED Status: Active Protocol: Document 11/17/17 09:55 AB (Rec: 11/17/17 12:43 AB [id number]) PT Summary Assessment and Plan Potential Rehabilitation Potential Good Status of Condition at Evaluation Stable Summary Impairments Pain ROM Strength Balance Bed Mobility Transfers Gait Activity Tolerance Assessment Summary pt requiring SBA with mobility . has decrease activity tolerance affecting mobility but stated that he has neighbors that checks on him everyday. Goals Bed Mobility Goal Independent Transfer Goal Independent Gait Goal Independent Gait Distance 200 Frequency of Treatment Frequency Of Treatment Once a Day Treatment Plan Physical Therapy Treatment Plan Bed Mobility Training Transfer Training Gait Training Therapeutic Exercise Balance Retraining Post Op Education Discharge Planning Hot or Cold Pack Neuromuscular Re-ed Coordination Retraining Manual Therapy Recommendations To Nursing Amount of Assist Needed Standby Assistance Discharge Recommendations PT Discharge Recommendations Home
--- NOTE | 2017-11-17 14:03 | CM.IDA ---
DCP Assessment/DC Note: Pt is a 67 yo male, resident of [facility]. Pt admitted for acute cholecystitis. Pt's PCP is is not listed; Insurance is Medicare/Medicaid. Pt is indp at baseline, per notes: a chronic and heavy alcohol user (Dr Ortiz's note indicates pt is not interested in sobriety) , and lives in a Senior housing apt on [address]. According to Dr Ortiz's DC Summary; pt went to the OR yesterday for for laparoscopic cholecystectomy and attempted intraoperative cholangiography on November 16, 2017. Today, pt's overall condition is stable and he is mostly back to baseline. PT has consulted and cleared pt for his return home. This SERVICES EXECUTIVE met w/pt w/RN at bedside, explained role and discussed transportation home. Pt requests [employer] taxi pick him up at 1500 for the [address] to [place]. Arranged this p/u through [employer]. SONIYA Discharge Planning/Care Management CM Discharge Assessment Start: 11/17/17 14:00 Freq: Status: Active Protocol: Document 11/17/17 14:00 SONIYA (Rec: 11/17/17 14:03 SONIYA [id number]) Discharge Planning Assessment Assigned Collar Starcher SONIYA History Provided By Patient Has Patient been admitted in last 30 No days? Is this patient on Medicare? Yes Prior Living Arrangements Apartment/Condo Household Members none Type of transporation used prior to Drives own vehicle admit Facility Name [facility] Willing to Return to Facility? Yes: Senior Housing/ A[address] on [address] Independent with ADL's Yes Is patient alert and oriented? Yes Referrals Initiated None needed Comment Arranged [employer] to ferry [place] Discharge Plan Home Transportation Arrangement [employer] and Person, friend vs taxi once on [place] Is Review Status Complete
--- NOTE | 2017-11-17 14:45 | PC.NURSE ---
Pt alert and oriented, offers no overt c/o, asks appropriately for meds. Makes appropriate requests and follows commands. States understanding of D/C instructions. Iv d/c'd intact, LUPE drained of 30cc and tucked safely in clothing. Pt escorted to ED entrance via w/c to await warehouse picker by [facility]acy Jason for ride to [facility].
[2017-11-22 08:22] LABS: Hepatitis B Surf Ab Qualitativ Nonreactive (Nonreactive)
== END 2017-11-17 14:45 | disposition home or self-care (01) | DRG 419 ==
LOC: ED 22:30 → AC 23:57
PROVIDERS: Emergency Medicine; Admitting Provider Surgery; Emergency Provider Emergency Medicine; Visit Provider Surgery
PROC: 0FT44ZZ Resection of Gallbladder, Percutaneous Endoscopic Approach (ICD-10-PCS; CPT 47562; principal; 2017-11-16 08:45)
DX: K81.0 Acute cholecystitis (principal); F17.210 Nicotine dependence, cigarettes, uncomplicated; Z87.820 Personal history of traumatic brain injury; J42 Unspecified chronic bronchitis; F10.10 Alcohol abuse, uncomplicated; K66.0 Peritoneal adhesions (postprocedural) (postinfection); Z66 Do not resuscitate
CPT/HCPCS: 36592; 47562; 71045; 74177; 76705; 80053; 81003; 82550; 82553; 83690; 84484; 85025; 85610; 85730; 87522; 88305; 93005; 94640; 97161; 99223; 99284; C9113; J0330; J0690; J1100; J1170; J1650; J2250; J2405; J2704; J3010; J7613; Q9967

== ENCOUNTER 2017-11-26 16:42 | Inpatient (IN) | payer MEDICARE, MEDICAID, SELFPAY ==
[2017-11-16 00:18] VITALS: BMI 19.5
[2017-11-26 16:09] LABS: Hematocrit 33.9 % (41-53); Hemoglobin 10.7 g/dL (13.5-17.5); Mean Corpuscular HGB Conc 31.5 % (30-36); Mean Corpuscular Hemoglobin 25.8 PG (26-34); Mean Corpuscular Volume 81.9 fL (80-100); Platelet Count 521 X10^3/uL (150-400); Red Blood Cell Count 4.14 X10^6/uL (4.5-5.9); Red Cell Distribution Width 23.1 % (11.6-14.8)
[2017-11-26 16:36] LABS: Alanine Aminotransferase 29 IU/L (21-72); Albumin Globulin Ratio 0.8 (1.0-2.8); Alkaline Phosphatase 143 U/L (38-126); Aspartate Aminotransferase 65 IU/L (17-59); BUN Creatinine Ratio 22.2 (6-22); Blood Urea Nitrogen 20 mg/dL (9-20); Calcium 8.8 mg/dL (8.4-10.2); Chloride 90 mmol/L (98-107); Estimated Glomerular Filt Rate > 60.0 mL/min (>60); Globulin 3.7 g/dL (1.7-4.1); Glucose 122 mg/dL (80-110); HEMOLYSIS < 15 (0-50); Lipase 112 U/L (23-300); Potassium 4.7 mmol/L (3.4-5.1); Sodium 142 mmol/L (137-145); Total Protein 6.7 g/dL (6.3-8.2)
[2017-11-26 16:42] LABS: Carbon Dioxide 37 mmol/L (22-32)
[2017-11-26 16:43] LABS: Prealbumin 3.5 mg/dL (17.6-36.0)
[2017-11-26 17:11] VITALS: BP 136/87; PULSE 114; RESP 18; TEMP 36.8
[2017-11-26 17:26] VITALS: BMI 19.7
[2017-11-26 17:39] LABS: Add Manual Diff / Slide Review NO; Basophils Percent Auto 0.1 % (0-2); Hypochromasia 1+; Lymphocytes Percent Auto 5.6 % (25-40); Microcytosis 1+; Monocytes Percent Auto 5.7 % (3-14); Neutrophils Absolute Auto 17500 /uL (3000-5900); Neutrophils Percent Auto 87.7 % (50-75); Polychromasia 1+; RBC Morphology ABNORMAL
[2017-11-26 17:40] LABS: Anisocytosis 2+
[2017-11-26] MEDS: LACTATED RINGERS 1,000 ML 70 ML IV (17:50)
[2017-11-26] MEDS: PIPERACILLIN-TAZO 3.375 GM/50 ML FROZ.PIGGY IV (17:51)
[2017-11-26 18:24] LABS: Bacteria Urine None Seen; RBC Urine None Seen (0-5/HPF); WBC Urine None Seen (0-5/HPF)
[2017-11-26 18:27] LABS: Appearance Urine UA CLEAR; Bilirubin Urine UA 3+ (NEGATIVE); Glucose Urine UA TRACE g/dL (Normal); Ketones Urine UA 1+ (NEGATIVE); Leukocyte Esterase Urine UA NEGATIVE (NEGATIVE); Nitrite Urine UA POSITIVE (Negative); Occult Blood Urine UA NEGATIVE (Negative); Protein Urine UA 1+ (Negative); Specific Gravity Urine UA 1.025 (1.000-1.035); Urobilinogen Urine UA >=8.0 E.U./dL (0.2)
[2017-11-26 18:34] LABS: Color Urine UA Dark Yellow
[2017-11-26 18:36] LABS: Squamous Epithelial Cell Urine None Seen
[2017-11-26 18:37] LABS: Culture Indicated Urine Cult Not Indicated; Hyaline Casts Urine 1-5/LPF; Ictotest Urine Positive (Negative)
--- NOTE | 2017-11-26 19:25 | PC.NURSE ---
Direct Admit: Timothy admitted to rm 210. Ambulatory. Reports generalized weakness, recent fall this morning, vomiting, unable to keep food or liquids down. Said he has been emptying LUPE drain up to 8 or 9 times in a 12 hour period (copy of his journal placed in chart.) Reports right flank pain & pain at LUPE site, rates at 6/10. LUPE full of pale green/brown liquid output with some solid pieces, 110 ml emptied. Peritoneal & urine samples sent to lab per orders. Esther RN in room to start IV. IV started to RFA, LR infusing at 70 ml/hour. Pt oriented x 3, oriented to call button, bed alarm active for high fall risk. Reports 2 falls in the last 2 weeks.
[2017-11-26] MEDS: DOCUSATE 100 MG CAPSULE PO (19:56)
[2017-11-26] MEDS: OXYCODONE IR 5 MG TABLET PO (19:56)
[2017-11-26 20:31] VITALS: BP 139/86; PULSE 107; RESP 20; TEMP 37.1
[2017-11-26 20:52] VITALS: O2SAT 96
[2017-11-26 23:00] VITALS: O2SAT 94
[2017-11-27] VITALS (8 sets, daily range): BP systolic 103–127; BP diastolic 64–80; PULSE 77–94; RESP 15–19; TEMP 36.4–36.9; O2SAT 93–98
--- NOTE | 2017-11-27 | DI.NM.S_ITS ---
PROCEDURE: NM HIDA NO EJECTION FRACTION RADIOPHARMACEUTICAL: 5.5 mCi Tc-99m mebrofenin IV. INDICATIONS: possible bile leak after cholecystectomy TECHNIQUE: Following intravenous administration of Tc-99m mebrofenin, sequential anterior abdominal images were obtained through at least 60 minutes. COMPARISON: [facility], CT, CT ABDOMEN PELVIS W CON, 11/15/2017, 18:19. [facility], CR, XR CHEST 2V, 11/27/2017, 5:01. [facility], US, US ABDOMEN LIMITED, 11/15/2017, 20:49. FINDINGS: There is normal tracer uptake and excretion by the liver. There is normal visualization of intrahepatic ducts, common bile duct, and the gallbladder. There is normal tracer excretion into duodenum. Over the course of the examination dependent ectopic positioning of excreted isotope along the hepatorenal space or undersurface of the liver margin is not seen. Several transient episodes of reflux through the duodenal bulb into the gastric lumen were observed. What appears to be isotope sequestered within the anatomic position of the cystic duct stump is present. IMPRESSION: Findings do not support diagnosis of postoperative bile leak. Mild reflux of excreted isotope through the duodenum into the gastric lumen. Sequestration of a portion of the excreted bile into the cystic duct stump is the presumed cause for focal isotope deposition just to the right of the common hepatic duct/common bile duct junction. Dictated by: Mathew Amaya M.D. on 11/27/2017 at 14:40 Approved by: Mathew Amaya M.D. on 11/27/2017 at 14:47
--- NOTE | 2017-11-27 | DI.RAD.S_ITS ---
PROCEDURE: XR CHEST 2V INDICATIONS: productive cough, leukocytosis TECHNIQUE: 2 views of the chest were acquired. COMPARISON: [facility], CR, XR CHEST 1V, 11/15/2017, 17:01. FINDINGS: Surgical changes and devices: None. Lungs and pleura: No pleural effusions or pneumothorax. Lungs are clear but lung volumes are large, COPD may be present. Mediastinum: Mediastinal contours are normal. Heart size is normal. Bones and chest wall: No suspicious bony abnormalities. Soft tissues appear unremarkable. IMPRESSION: Suspect COPD but no acute disease. Dictated by: Mathew Amaya M.D. on 11/27/2017 at 8:17 Approved by: Mathew Amaya M.D. on 11/27/2017 at 8:18
[2017-11-27] MEDS: PIPERACILLIN-TAZO 3.375 GM/50 ML FROZ.PIGGY IV ×3 (00:58→18:00)
[2017-11-27 05:48] LABS: INR 1.2 (0.9-1.3); Prothrombin Time 13.5 SECONDS (10.1-12.7)
[2017-11-27] MEDS: OXYCODONE IR 5 MG TABLET PO ×2 (05:53→17:50)
--- NOTE | 2017-11-27 06:03 | PC.NURSE ---
NOC shift pt denied pain, n/v early on shift. Pt requested we cluster his care in order for him to rest as much as possible. Transferred pt to imaging at 0540 for chest XRAY via wheelchair. Pain started c/o pain (10/07) in abdomen. Administered 5mg percolone for pain. Patient stated he feels nauseous intermittently with coughs; refused Zofran, and stated that he will let us know if he needs something for his nausea. LR running at 70ml/hr. 1PA/SBA to BR. LUPE draining well (emptied 3x this shift with over 200ml out). LUPE drainage is green with particulates.
[2017-11-27 06:23] LABS: Procalcitonin 0.59 ng/mL (<0.5)
[2017-11-27] MEDS: FLUCONAZOLE 400 MG/200 ML PIGGYBACK 100 MG IV (08:04)
[2017-11-27] MEDS: SENNOSIDES 8.6 MG TABLET PO (08:56)
[2017-11-27] MEDS: DOCUSATE 100 MG CAPSULE PO ×2 (08:56→21:09)
[2017-11-27] MEDS: LACTATED RINGERS 1,000 ML 70 ML IV (10:30)
--- NOTE | 2017-11-27 11:37 | PC.NURSE ---
Day shift: Pt left unit at approx 1130 w/ Tino from imaging in . Pt reports still being uncomfortable as well as some nausea. He is weak and unsteady when he got OOB. CIWA score was 2 earlier. Calm and cooperative w/ care.
--- NOTE | 2017-11-27 12:43 | PC.NURSE ---
Day shift: Pt remains off unit at this time (3070).
--- NOTE | 2017-11-27 13:11 | PC.NURSE ---
Day shift: Back on unit at approx 1255. Denies pain or nausea. Call light in reach. Tolerating ice chips. IV fluids running again per orders. Bed alarm on.
[2017-11-27 17:32] LABS: Add Manual Diff / Slide Review NO; Basophils Percent Auto 0.3 % (0-2); Eosinophils Percent Auto 0.1 % (2-4); Hematocrit 28.8 % (41-53); Lymphocytes Percent Auto 7.1 % (25-40); Mean Corpuscular HGB Conc 31.2 % (30-36); Mean Corpuscular Hemoglobin 25.5 PG (26-34); Mean Corpuscular Volume 81.7 fL (80-100); Monocytes Percent Auto 5.6 % (3-14); Neutrophils Absolute Auto 10300 /uL (3000-5900); Neutrophils Percent Auto 86.9 % (50-75); Platelet Count 405 X10^3/uL (150-400); Red Blood Cell Count 3.53 X10^6/uL (4.5-5.9); Red Cell Distribution Width 23.2 % (11.6-14.8); White Blood Cell Count 11.8 X10^3/uL (4.5-11.0)
--- NOTE | 2017-11-27 18:23 | PM.PN.1 ---
Subjective Date Patient Seen: 11/27/17 Time Patient Seen: 16:01 Interval history: Patient currently denying nausea or pain. No vomiting. Still not particularly hungry but would like to try some soft food. Feels fatigued. No difficulties with dysuria or hematuria. Passing flatus. No subjective fever or chills. No subjective abdominal distention. Exam Vital Signs (past 8 hours): - 11/27/17 12:00 11/27/17 14:27 11/27/17 16:04 Temperature 98.1 F 98.5 F Pulse Rate 87 77 Respiratory Rate 17 18 Blood Pressure 120/77 127/71 H Pulse Oximetry 93 98 97 Oxygen Delivery Method Room Air Oxygen Flow Rate 0 Narrative Exam Narrative: Remains afebrile with normal heart rate and blood pressure. Adequate urine output. Esvin-Schofield drain continues to collect significant fluid of several 100 cc per day. Fluid is now frankly bilious. Patient appears pale but not jaundiced Chest clear to auscultation but he has copious rhonchi bilaterally consistent with his COPD Abdomen is soft and nondistended. He is essentially nontender with no guarding or rebound. Incisions are clean, dry, and intact. Drain site is clean. Drain output is as above. Extremities show no clubbing, cyanosis, or edema Objective Labs Result Diagrams: 11/27/17 17:17 11/26/17 15:43 Labs: Laboratory Results - last 24 hr 11/26/17 11/26/17 11/27/17 18:10 18:10 05:11 WBC RBC Hgb Hct MCV MCH MCHC RDW Plt Count Neut % (Auto) Lymph % (Auto) R[place] % (Auto) Eos % (Auto) Baso % (Auto) Neut # (Auto) PT 13.5 H INR 1.2 Procalcitonin Urine Color Dark yellow Urine Appearance Clear Urine pH 5.0 Ur Specific [place] 1.025 Urine Protein 1+ H Urine Glucose (UA) Trace Urine Ketones 1+ H Urine Occult Blood Negative Urine Nitrate Positive Urine Bilirubin 3+ H Urine Ictotest Positive H Urine Urobilinogen >=8.0 Ur Leukocyte Esterase Negative Urine RBC None seen Urine WBC None seen Ur Squamous Epith Cells None seen Urine Bacteria None seen Hyaline Casts 1-5/lpf Ur Culture Indicated? Cult not indicated Micro UA Comment Not Reportable Blood Type Antibody Screen 11/27/17 11/27/1718 05:11 05:11 17:17 WBC 11.8 H RBC 3.53 L Hgb 9.0 L Hct 28.8 L MCV 81.7 MCH 25.5 L MCHC 31.2 RDW 23.2 H Plt Count 405 H Neut % (Auto) 86.9 H Lymph % (Auto) 7.1 L Runnels % (Auto) 5.6 Eos % (Auto) 0.1 L Baso % (Auto) 0.3 Neut # (Auto) 36442 H PT INR Procalcitonin 0.59 H Urine Color Urine Appearance Urine pH Ur Specific [place] Urine Protein Urine Glucose (UA) Urine Ketones Urine Occult Blood Urine Nitrate Urine Bilirubin Urine Ictotest Urine Urobilinogen Ur Leukocyte Esterase Urine RBC Urine WBC Ur Squamous Epith Cells Urine Bacteria Hyaline Casts Ur Culture Indicated? Micro UA Comment Blood Type A Positive Antibody Screen Negative Fluid cultures from the drain show gram-positive cocci with multiple white blood cells. Final cultures are still pending however. There are few yeast on the Gram stain. Urinalysis is consistent with dehydration and hyperbilirubinemia but no evidence of urinary tract infection. Two-view chest x-ray shows no infiltrates or effusions. HIDA scan today demonstrates no obvious bile leak. Tracer drains readily through a visible common bile duct into the duodenum and refluxes into the stomach. Assessment & Plan Plan: Assessment/Plan Narrative: 67-year-old male with possible bacterial peritonitis due to either hepatitis complicated by chronic alcohol use or contaminated bile leak. Although there is no evidence of obvious bile leak on the HIDA scan his drain output appears to be outright bile now. White blood cell count has diminished nicely on intravenous Zosyn. Diflucan intravenous was added due to the yeast on Gram stain. We will await final cultures. Continue Esvin-Schofield drain. Allow a mechanical soft diet of his choice. Continue IV fluids at a slow rate. I do not believe he has ascites. I do not see any evidence that would suggest common bile duct injury or significant hepatic duct injury, but at this stage he requires gastroenterology consultation with probable ERCP and possible stent placement. There may be a low level leak from a accessory bile duct on the liver bed such as a duct of Luschka. They could also potentially render an opinion regarding his active hepatitis C viral load and possible early alcoholic cirrhosis. I discussed all the above with the patient in detail. All questions were answered to his satisfaction, and he voiced understanding. He is agreeable to gastroenterology consultation and transfer to another facility for potential ERCP since the services are not available at this institution. Given the late hour I will initiate such referral and potential transfer 1st thing tomorrow morning. Orders were written. Quality VTE Deep Vein Thrombosis/Pulmonary Embolism Present on Admission: No
[2017-11-27 18:25] LABS: Anisocytosis 3+; Poikilocytosis 1+
--- NOTE | 2017-11-27 22:15 | PC.NURSE ---
Alexus shift- LUPE drain emptied Q- 4hr with clear light green fluid 120mL each time. percolone 5mg @ 1745 for pain 5/10, effective. Using urinal for clear golden urine. RFA LR @ 75 infusing. Pt currently on contact isolation for gram pos cocci, HCV positive. CIWA score -2 for this shift. 97%RA, LS fine crackles to bases bilat. diet advanced to [facility] soft. Pt ate 10% meal. Denies nausea this shift BT+. Call light in reach.
[2017-11-28] VITALS (10 sets, daily range): BP systolic 119–145; BP diastolic 66–89; PULSE 62–86; RESP 16–20; TEMP 36.7–37; O2SAT 93–96
[2017-11-28] MEDS: PIPERACILLIN-TAZO 3.375 GM/50 ML FROZ.PIGGY IV ×3 (01:11→16:50)
[2017-11-28] MEDS: LACTATED RINGERS 1,000 ML 70 ML IV ×2 (03:12→21:35)
--- NOTE | 2017-11-28 04:43 | PC.NURSE ---
Addendum entered by Dariela Francis R.N. 11/28/17 05:20: rhochi was observed on r side (not crackles) Original Note: shift note met with pt at start of shift. Pt is AOx self and place. Oriented to date. CIWA score 3. Denies pain. No N/V. Pt does have wet cough with some sputum. Crackles on R side. Dressing on r abdomen is CDI. LUPE drain has copious amounts of brown drainage being emptied 3x thus far. Call light within reach
[2017-11-28] MEDS: FLUCONAZOLE 400 MG/200 ML PIGGYBACK 100 MG IV (08:39)
--- NOTE | 2017-11-28 08:41 | PM.PN.1 ---
Subjective Date Patient Seen: 11/28/17 Time Patient Seen: 08:41 Interval history: Mild nausea but improving. Tolerated a small amount of eggs and coffee this morning. Minimal oral input however. Has adequate urine output with IV fluids. Had a bowel movement this morning which he states was otherwise formed and brown. No acholic stools. No fever or chills subjectively. Denies any abdominal pain at all. Exam Vital Signs (past 8 hours): - 11/28/17 01:15 11/28/17 04:30 Temperature 98.4 F Pulse Rate 74 Respiratory Rate 16 Blood Pressure 121/67 H Pulse Oximetry 95 95 Oxygen Delivery Method Room Air Oxygen Flow Rate 0 Narrative Exam Narrative: Thin male who appears chronically ill sitting comfortably in bedside chair in no acute distress eating breakfast. Alert oriented x3. He has had no evidence of alcohol withdrawal. Sclera are not overtly icteric Chest shows copious rhonchi bilaterally but no crackles. Regular rate and rhythm Abdomen is soft and nondistended. He is essentially nontender to palpation certainly with no guarding or rebound. Incisions are all clean, dry, and intact. Drain site is clean. Drain is collecting several hundred cc per day of bilious fluid today. Extremities show no clubbing, cyanosis, or edema Objective Labs Result Diagrams: 11/27/17 17:17 11/26/17 15:43 Labs: Laboratory Results - last 24 hr 11/27/17 17:17 WBC 11.8 H RBC 3.53 L Hgb 9.0 L Hct 28.8 L MCV 81.7 MCH 25.5 L MCHC 31.2 RDW 23.2 H Plt Count 405 H Neut % (Auto) 86.9 H Lymph % (Auto) 7.1 L [place] % (Auto) 5.6 Eos % (Auto) 0.1 L Baso % (Auto) 0.3 Neut # (Auto) 04058 H RBC Morphology Not Reportable Poikilocytosis 1+ H Anisocytosis 3+ H No new radiographic or laboratory studies review. Final cultures are still pending. Assessment & Plan Plan: Assessment/Plan Narrative: 67-year-old male now 12 days status post laparoscopic cholecystectomy with attempted cholangiography that could not be completed likely due to cystic duct obstruction now with evidence clinically of bile leak well controlled with Esvin-Schofield drain. However, his HIDA scan yesterday did not show an obvious leak. No evidence of any major duct disruption. His white blood cell count otherwise has improved on IV antibiotics. We will continue Zosyn and Diflucan as ordered. I believe he requires ERCP with possible stent placement. I spoke with Dr. Nelson in the Gastroenterology Department regarding such this morning. He is willing to perform the procedure at [facility] either today or tomorrow. He will call to make those arrangements. In the interim I have made the patient NPO in the event he can have the procedure today. We would then plan to have him transfer back to [facility] after the procedure elsewhere. I discussed all the above with the patient in detail. All questions were answered to his satisfaction, and he voiced understanding. He was agreeable to the plan. Orders were written. Quality VTE Deep Vein Thrombosis/Pulmonary Embolism Present on Admission: No
--- NOTE | 2017-11-28 08:45 | P.PN_ITS ---
Subjective Date Patient Seen: 11/28/17 Time Patient Seen: 08:41 Interval history: Mild nausea but improving. Tolerated a small amount of eggs and coffee this morning. Minimal oral input however. Has adequate urine output with IV fluids. Had a bowel movement this morning which he states was otherwise formed and brown. No acholic stools. No fever or chills subjectively. Denies any abdominal pain at all. Exam Vital Signs (past 8 hours): - 11/28/17 01:15 11/28/17 04:30 Temperature 98.4 F Pulse Rate 74 Respiratory Rate 16 Blood Pressure 121/67 H Pulse Oximetry 95 95 Oxygen Delivery Method Room Air Oxygen Flow Rate 0 Narrative Exam Narrative: Thin male who appears chronically ill sitting comfortably in bedside chair in no acute distress eating breakfast. Alert oriented x3. He has had no evidence of alcohol withdrawal. Sclera are not overtly icteric Chest shows copious rhonchi bilaterally but no crackles. Regular rate and rhythm Abdomen is soft and nondistended. He is essentially nontender to palpation certainly with no guarding or rebound. Incisions are all clean, dry, and intact. Drain site is clean. Drain is collecting several hundred cc per day of bilious fluid today. Extremities show no clubbing, cyanosis, or edema Objective Labs Result Diagrams: 11/27/17 17:17 11/26/17 15:43 Labs: Laboratory Results - last 24 hr 11/27/17 17:17 WBC 11.8 H RBC 3.53 L Hgb 9.0 L Hct 28.8 L MCV 81.7 MCH 25.5 L MCHC 31.2 RDW 23.2 H Plt Count 405 H Neut % (Auto) 86.9 H Lymph % (Auto) 7.1 L [place] % (Auto) 5.6 Eos % (Auto) 0.1 L Baso % (Auto) 0.3 Neut # (Auto) 24781 H RBC Morphology Not Reportable Poikilocytosis 1+ H Anisocytosis 3+ H No new radiographic or laboratory studies review. Final cultures are still pending. Assessment & Plan Plan: Assessment/Plan Narrative: 67-year-old male now 12 days status post laparoscopic cholecystectomy with attempted cholangiography that could not be completed likely due to cystic duct obstruction now with evidence clinically of bile leak well controlled with Esvin-Schofield drain. However, his HIDA scan yesterday did not show an obvious leak. No evidence of any major duct disruption. His white blood cell count otherwise has improved on IV antibiotics. We will continue Zosyn and Diflucan as ordered. I believe he requires ERCP with possible stent placement. I spoke with Dr. Nelson in the Gastroenterology Department regarding such this morning. He is willing to perform the procedure at [facility] either today or tomorrow. He will call to make those arrangements. In the interim I have made the patient NPO in the event he can have the procedure today. We would then plan to have him transfer back to [facility] after the procedure elsewhere. I discussed all the above with the patient in detail. All questions were answered to his satisfaction, and he voiced understanding. He was agreeable to the plan. Orders were written. Quality VTE Deep Vein Thrombosis/Pulmonary Embolism Present on Admission: No
--- NOTE | 2017-11-28 14:03 | PC.NURSE ---
day shift pt denies pain. up with SBA. slightly impulsive and unsteady on feet but pt always uses call light. Bed alarm in place as well. LUPE drain this AM was draining brown slightly opaque fluid, no odor. By afternoon, draining thick mucoid very purulent drainage with brown color as well. Still no odor. from [id number] drained 260 ml of fluid.
--- NOTE | 2017-11-28 15:27 | CM.IDA ---
DCP Assessment Note: Pt is a 67 yo male, resident of [facility]. Pt admitted for possible bacterial peritonitis. Pt's PCP is is not listed; Insurance is Medicare/Medicaid. According to pt's admission 11/17/17: Pt is indp at baseline, per notes: a chronic and heavy alcohol user (Dr Ortiz's note indicates pt is not interested in sobriety) , and lives in a Senior housing apt on [address]. Pt DC home 11/17 via [employer] arrangements. Pt is back and requiring a transfer to [facility] for ERCP w/possible stent placement, then return to for ongoing management by the surgical team. Pt has a LUPE drain in, procedure at [facility] scheduled for . Met w/pt this morning, explained SW role. Pt throwing up phlem in his blue banana bag but states this is normal for him. Pt plans to return home to the [facility] and explains he has neighbors he relies on to assist him as needed. Pt denies being on ALEX or needing cgs, he can visit the [facility] social work associate across the street from him if he needs help from a [facility] re resource referral. Pt does not seem to be feeling well during this MEDICATION TECH's visit, will attempt another visit tomorrow, . JOSLYN Zuniga Discharge Planning/Care Management Discharge Assessment Start: 11/28/17 15:21 Freq: Status: Active Protocol: Document 11/28/17 15:21 SONIYA (Rec: 11/28/17 15:27 SONIYA [id number]) Discharge Planning Assessment Assigned Hay Sorter SONIYA History Provided By Patient Has Patient been admitted in last 30 Yes days? Is this patient on Medicare? Yes Comment Different abd surgery last admit. Now requiring ERCP possible stent placement at [facility] Prior Living Arrangements Long Term Household Members none Type of transporation used prior to Relies on Others admit Comment [facility], low income housing on [address] Is. Willing to Return to Facility? Yes: the [facility] Independent with ADL's Yes Is patient alert and oriented? Yes Comment Current drinker and smoker, not interested in quitting per last admission. Comment Likely return home. Discharge Plan Home Transportation Arrangement Likely [employer] again. Review Status In Process Next Review Type Discharge Review
--- NOTE | 2017-11-28 19:36 | PC.NURSE ---
Alexus shift note: Patient awake, alert, and cooperative. Reports mild nausea but no vomiting. Sensitive to light. Dressing to RLQ, CDI with LUPE draining dark green/clear brown bilious drainage. Abdomen soft, hypoactive BS, mild tenderness. Decreased PO intake. Aware of NPO status at midnight. HOB up Dr. Ortiz at bedside, updated patient regarding plan of care, transfer to [facility] in the am. Patient voiding in urinal. Contact precautions maintained. Calls appropriately for staff assistance.
[2017-11-29] VITALS (10 sets, daily range): BP systolic 87–117; BP diastolic 60–75; PULSE 80–105; RESP 16–20; TEMP 36.3–36.9; O2SAT 92–98
--- NOTE | 2017-11-29 | DI.RAD.S_ITS ---
PROCEDURE: XR CHEST FOR PICC 1V INDICATIONS: picc placement COMPARISON: [facility], , XR CHEST 2V, 11/27/2017, 5:01. FINDINGS: PICC was placed by the intravenous therapy team from the left side. Fluoroscopic spot film demonstrates tip of PICC in the superior vena cava. Lungs are clear. IMPRESSION: Tip of PICC lies within the superior vena cava. Dictated by: Gelacio Escobar M.D. on 11/29/2017 at 18:26 Approved by: Gelacio Escobar M.D. on 11/29/2017 at 18:27
[2017-11-29] MEDS: PIPERACILLIN-TAZO 3.375 GM/50 ML FROZ.PIGGY IV ×2 (01:01→07:58)
--- NOTE | 2017-11-29 08:25 | P.PN_ITS ---
Subjective Date Patient Seen: 11/29/17 Time Patient Seen: 08:23 Interval history: Patient denies any significant abdominal pain. Continues to have mild intermittent nausea but no vomiting. Remains relatively anorexic. Oral intake yesterday was essentially zero. Adequate urine output with IV fluids. Passing flatus but no bowel movement over the last 48 hr. No dysuria or hematuria. Drain output remained significant and continues to elevate to up at least a Liter per the record over the last 24 hr. Output remains frankly but bilious at this point. Patient denies any subjective fever or chills. No chest pain or shortness of breath. Exam Vital Signs (past 8 hours): - 11/29/17 01:00 11/29/17 04:55 11/29/17 08:08 Temperature 98.5 F Pulse Rate 82 Respiratory Rate 16 Blood Pressure 113/63 Pulse Oximetry 95 95 95 Fraction of Inspired Oxygen 21 Oxygen Delivery Method Room Air Oxygen Flow Rate 0 Narrative Exam Narrative: Patient continues to appear chronically ill and weak. Alert oriented x3 however. His CIWA scores remain normal and he has no evidence of alcohol withdrawal since admission. Afebrile and hemodynamically stable. No tachycardia. Normal blood pressure. Sclera are not overtly icteric. Patient's complexion continues to appear sallow overall. However, he is not frankly jaundice. Chest clear to auscultation with regular rate and rhythm but copious coarse rhonchi that clear but momentarily with cough. No crackles. Abdomen is soft and nondistended. He is completely nontender to palpation. No masses. No obvious massive ascites. Wounds are all clean, dry, and intact without erythema or ecchymoses. Drain site is clean. Esvin-Schofield bulb continues to collect sharmila bile. Extremities show no clubbing, cyanosis, or edema Objective Labs Result Diagrams: 11/27/17 17:17 11/26/17 15:43 Labs: No new laboratory or radiographic studies for review His peritoneal fluid cultures, however, continue to show a yeast and E coli. The E coli is resistant to Zosyn. Assessment & Plan Plan: Assessment/Plan Narrative: 67-year-old male with with postoperative bile leak of unclear etiology. I do not suspect major hepatic or common bile duct injury. No evidence of cystic duct stump leak. In fact, his recent HIDA scan showed no obvious leak. Overall the source of bile remains unknown. He is scheduled to transfer to [facility] today for ERCP and possible stent placement under the care of Dr. Nelson. He will return to [facility] for readmission following that procedure. Intravenous antibiotics have been changed from Zosyn to Levaquin and Flagyl. Continue Diflucan. We will place a PICC line today and start TPN with sliding scale insulin coverage as well. Patient clearly is severely protein malnourished. Hopefully once the bile leak is controlled and begins to close along with adequate control of the intraperitoneal infection likely from the original acute cholecystitis episode that his appetite and nutritional status will slowly improve. I suspect he will require hospitalization for at least several more days including into early next week. He may even require [facility] facility evaluation depending upon his overall status. Remain concerned about his underlying liver dysfunction secondary to alcohol and hepatitis C. hopefully this stabilizes and slowly improved as he continues to refrain from alcohol and his nutritional status improves. Orders were written. I discussed all the above with the patient in detail, and all of his questions were answered to his satisfaction. He voiced understanding. He is agreeable to the plan. Quality VTE Deep Vein Thrombosis/Pulmonary Embolism Present on Admission: No
[2017-11-29] MEDS: levoFLOXacin 750 MG/150 ML PIGGYBACK 100 MG IV (09:01)
--- NOTE | 2017-11-29 09:34 | PC.NURSE ---
Day shift: Paperwork signed for transport and packet is ready. Awaiting transport personnel. Pt presents as very ill. Pain reported at ABD/LUPE site of 08/07. HOB elevated >15 degrees. PICC placement ordered as well as TPN by . IV Dialudid available now as well. Dr Ortiz stated he wanted it done today. Will continue to get hold of DI RN. Bed alarm on and call light in reach.
--- NOTE | 2017-11-29 09:54 | PC.NURSE ---
Day shift: Pt received the IV antibiotics that could be given fully prior to his transfer to [facility] for a procedure. Documented as Not Given and IV infusing. Plan is for transport at 1015 today. Unknown what time he will return. Call light in reach. LUPE emptied and 150mls of black/brown fluid. Uses call light proper.
--- NOTE | 2017-11-29 10:33 | PC.NURSE ---
Day shift: BLS/transport people running late. It is 1030. personal banking officer just in contact w/ [facility] staff. [facility] staff said they would start the procedure when Pt arrives. Will continue to update notes PRN.
--- NOTE | 2017-11-29 10:47 | PC.NURSE ---
Day shift: Left unit with transport persons at 1045.
--- NOTE | 2017-11-29 11:42 | PC.NURSE ---
Day shift: Pt remains off unit at this time (1200).
--- NOTE | 2017-11-29 12:38 | PC.NURSE ---
Day shift: Lorenzo RN from [facility] called. Questions answered. That RN reports Pt will not be back to [facility] for several more hours at this time (1200).
[2017-11-29] MEDS: metroNIDAZOLE 500 MG/100 ML PIGGYBACK 100 MG IV (18:29)
[2017-11-29] MEDS: FAT EMULSIONS 50 GM/250 ML EMULSION IV (18:29)
[2017-11-29] MEDS: AMINO ACIDS IV (18:30)
[2017-11-29] MEDS: DEXTROSE IV (18:30)
[2017-11-29] MEDS: CALCIUM IV (18:30)
[2017-11-29] MEDS: LYTES IV (18:30)
[2017-11-29] MEDS: [UNRECOGNIZED DRUG - OTHER] IV (18:30)
[2017-11-29] MEDS: MULTIVITAMIN IV (18:30)
[2017-11-29] MEDS: TRACE ELEMENTS IV (18:30)
[2017-11-29] MEDS: DOCUSATE 100 MG CAPSULE PO (21:57)
[2017-11-30] VITALS (10 sets, daily range): BP systolic 94–121; BP diastolic 51–69; PULSE 63–119; RESP 12–20; TEMP 36.4–37.1; O2SAT 93–99; BMI 19.1
[2017-11-30] MEDS: INSULIN ASPART 100 UNIT/ML INSULN PEN SUBCUT ×4 (00:20→18:18)
[2017-11-30] MEDS: metroNIDAZOLE 500 MG/100 ML PIGGYBACK 100 MG IV ×3 (00:30→17:08)
[2017-11-30 06:10] LABS: Add Manual Diff / Slide Review NO; Basophils Percent Auto 0.2 % (0-2); Eosinophils Percent Auto 0.4 % (2-4); Hematocrit 29.2 % (41-53); Hemoglobin 9.2 g/dL (13.5-17.5); Mean Corpuscular HGB Conc 31.4 % (30-36); Mean Corpuscular Hemoglobin 25.9 PG (26-34); Mean Corpuscular Volume 82.5 fL (80-100); Monocytes Percent Auto 8.1 % (3-14); Neutrophils Absolute Auto 6500 /uL (3000-5900); Neutrophils Percent Auto 82.3 % (50-75); Platelet Count 348 X10^3/uL (150-400); Red Blood Cell Count 3.54 X10^6/uL (4.5-5.9); Red Cell Distribution Width 22.1 % (11.6-14.8); White Blood Cell Count 7.9 X10^3/uL (4.5-11.0)
[2017-11-30 06:21] LABS: Alanine Aminotransferase 26 IU/L (21-72); Albumin 2.2 g/dL (3.5-5.0); Albumin Globulin Ratio 0.8 (1.0-2.8); Alkaline Phosphatase 76 U/L (38-126); Aspartate Aminotransferase 54 IU/L (17-59); BUN Creatinine Ratio 21.7 (6-22); Bilirubin Total 0.7 mg/dL (0.2-1.3); Blood Urea Nitrogen 13 mg/dL (9-20); Calcium 7.2 mg/dL (8.4-10.2); Chloride 88 mmol/L (98-107); Estimated Glomerular Filt Rate > 60.0 mL/min (>60); Globulin 2.9 g/dL (1.7-4.1); Glucose 158 mg/dL (80-110); HEMOLYSIS < 15 (0-50); Lipase 226 U/L (23-300); Sodium 138 mmol/L (137-145); Total Protein 5.1 g/dL (6.3-8.2)
[2017-11-30 06:39] LABS: Anisocytosis 2+
[2017-11-30 06:40] LABS: Carbon Dioxide 41 mmol/L (22-32)
--- NOTE | 2017-11-30 07:04 | PC.NURSE ---
Called Dr. Silvestre for critical lab results . Potassium 2.0, CO2 41. No new orders , provider will be in to see patient.
[2017-11-30] MEDS: FLUCONAZOLE 400 MG/200 ML PIGGYBACK 100 MG IV (09:07)
--- NOTE | 2017-11-30 09:15 | PC.NURSE ---
Day shift: All 3 IV antibiotics ordered for the same time. Will give as able (one after the other). TPN infusing per MD orders.
[2017-11-30] MEDS: POTASSIUM CHLORIDE 80 MEQ in SODIUM CHLORIDE 0.9% 1,000 ML 130 ML IV (11:16)
[2017-11-30] MEDS: levoFLOXacin 750 MG/150 ML PIGGYBACK 100 MG IV (11:26)
--- NOTE | 2017-11-30 15:37 | P.PN_ITS ---
Subjective Date Patient Seen: 11/30/17 Time Patient Seen: 15:35 Interval history: Mr. Horton is in reasonably good spirits today. He reports his stomach isn't really hurting him and he feels that he is getting better. Exam Vital Signs (past 8 hours): - 11/30/17 08:30 11/30/17 11:55 Temperature 97.8 F Pulse Rate 82 Respiratory Rate 12 Blood Pressure 121/69 H Pulse Oximetry 95 98 Fraction of Inspired Oxygen 21 Oxygen Delivery Method Room Air Oxygen Flow Rate 1.5 Narrative Exam Narrative: Abdomen is soft, minimal tenderness to palpation, active bowel sounds. Drain output is scant and bile tinged. Objective Labs Result Diagrams: 11/30/17 05:42 11/30/17 05:42 Labs: Laboratory Results - last 24 hr 11/30/17 11/30/17 05:42 05:42 WBC 7.9 RBC 3.54 L Hgb 9.2 L Hct 29.2 L MCV 82.5 MCH 25.9 L MCHC 31.4 RDW 22.1 H Plt Count 348 Neut % (Auto) 82.3 H Lymph % (Auto) 9.0 L [place] % (Auto) 8.1 Eos % (Auto) 0.4 L Baso % (Auto) 0.2 Neut # (Auto) 6500 H RBC Morphology Not Reportable Anisocytosis 2+ H Sodium 138 Potassium 2.0 L* D Chloride 88 L Carbon Dioxide 41 H* BUN 13 Creatinine 0.60 L Estimated GFR > 60.0 BUN/Creatinine Ratio 21.7 Glucose 158 H Calcium 7.2 L Total Bilirubin 0.7 AST 54 ALT 26 Alkaline Phosphatase 76 D Total Protein 5.1 L Albumin 2.2 L Globulin 2.9 Albumin/Globulin Ratio 0.8 L Lipase 226 D Assessment & Plan Plan: Assessment/Plan Narrative: 1. Postop day 1 after ERCP with sphincterotomy and stent placement for a leaking duct of Luschka 2. Protein calorie malnutrition. We will continue TPN. 3. Refeeding syndrome. Potassium is quite low this morning. We have replaced it with 80 mg of central fluid and there is also a potassium in his TPN. We will recheck those numbers in the morning. Quality VTE Deep Vein Thrombosis/Pulmonary Embolism Present on Admission: No
[2017-11-30] MEDS: AMINO ACIDS IV (18:21)
[2017-11-30] MEDS: DEXTROSE IV (18:21)
[2017-11-30] MEDS: LYTES IV (18:21)
[2017-11-30] MEDS: MULTIVITAMIN IV (18:21)
[2017-11-30] MEDS: CALCIUM IV (18:21)
[2017-11-30] MEDS: [UNRECOGNIZED DRUG - OTHER] IV (18:21)
[2017-11-30] MEDS: FAT EMULSIONS 50 GM/250 ML EMULSION IV (18:21)
[2017-11-30] MEDS: TRACE ELEMENTS IV (18:21)
[2017-11-30] MEDS: DOCUSATE 100 MG CAPSULE PO (20:33)
[2017-11-30] MEDS: PANTOPRAZOLE 40 MG VIAL IV (20:33)
[2017-11-30] MEDS: LACTATED RINGERS 1,000 ML 70 ML IV (23:45)
[2017-12-01] VITALS (8 sets, daily range): BP systolic 106–134; BP diastolic 69–87; PULSE 87–96; RESP 16–18; TEMP 36.7–37.1; O2SAT 95–99
[2017-12-01] MEDS: metroNIDAZOLE 500 MG/100 ML PIGGYBACK 100 MG IV ×3 (01:09→16:56)
[2017-12-01] MEDS: INSULIN ASPART 100 UNIT/ML INSULN PEN SUBCUT (06:34)
[2017-12-01 06:59] LABS: Blood Urea Nitrogen 10 mg/dL (9-20); Calcium 7.1 mg/dL (8.4-10.2); Chloride 95 mmol/L (98-107); Estimated Glomerular Filt Rate > 60.0 mL/min (>60); Glucose 129 mg/dL (80-110); HEMOLYSIS < 15 (0-50); Sodium 138 mmol/L (137-145)
[2017-12-01 07:31] LABS: Carbon Dioxide 40 mmol/L (22-32); Potassium 2.5 mmol/L (3.4-5.1)
[2017-12-01] MEDS: PANTOPRAZOLE 40 MG VIAL IV ×2 (08:58→20:39)
[2017-12-01] MEDS: levoFLOXacin 750 MG/150 ML PIGGYBACK 100 MG IV (10:02)
[2017-12-01] MEDS: POTASSIUM CHLORIDE 80 MEQ in SODIUM CHLORIDE 0.9% 1,000 ML 130 ML IV (10:02)
[2017-12-01] MEDS: FLUCONAZOLE 400 MG/200 ML PIGGYBACK 100 MG IV (12:04)
--- NOTE | 2017-12-01 14:03 | P.PN_ITS ---
Subjective Date Patient Seen: 12/01/17 Time Patient Seen: 13:58 Interval history: Timothy is in fairly good spirits today. He reports that he is just very very tired. We talked about eating. He is only consuming about 50 % of his clear liquid tray. He says he just does not want to eat anything else. He also remarks that if he eats more than that he will just throw it up. I asked him if he was vomiting here and he said yes. I have not seen it documented in the medical record so I do not know if he could be confused about timing. Continues to have loose stools. Exam Vital Signs (past 8 hours): - 12/01/17 06:28 12/01/17 08:05 12/01/17 08:55 Temperature 98.1 F 98.4 F Pulse Rate 89 92 H Respiratory Rate 18 16 Blood Pressure 106/69 115/72 Pulse Oximetry 98 97 97 12/01/17 12:00 Temperature 98.3 F Pulse Rate 96 H Respiratory Rate 16 Blood Pressure 114/71 Pulse Oximetry 98 Fraction of Inspired Oxygen 21 Oxygen Delivery Method Room Air Oxygen Flow Rate 0 Narrative Exam Narrative: Very ill-appearing gentleman in no acute distress Abdomen: Soft, more distended than yesterday, active bowel sounds. Drain is more serous than before and scant in volume. No tenderness to gentle palpation. Lungs: Essentially clear bilaterally. He has noisy breath sounds but it does improve with coughing. Heart: Regular rate and rhythm Objective Labs Result Diagrams: 11/30/17 05:42 12/01/17 06:15 Labs: Laboratory Results - last 24 hr 12/01/17 06:15 Sodium 138 Potassium 2.5 L* Chloride 95 L Carbon Dioxide 40 H* BUN 10 Creatinine 0.50 L Estimated GFR > 60.0 BUN/Creatinine Ratio 20.0 Glucose 129 H Calcium 7.1 L Assessment & Plan Plan: Assessment/Plan Narrative: 1. Severe Protein calorie malnutrition as demonstrated on both physical examination and profoundly abnormal prealbumin -continue current TPN 2. Hypo kalemia and refeeding syndrome-potassium is improved though still profoundly low. Still significant metabolic alkalosis. Will replace 80 mg potassium again today and continue potassium is ordered and his TPN. Recheck labs in the morning. 3. Limited p.o. intake. Will advance diet and allow patient to just pick at what he would like to eat. 4. Duct of Luschka-leave drain in place for now. The output is decreasing. Quality VTE Deep Vein Thrombosis/Pulmonary Embolism Present on Admission: No
--- NOTE | 2017-12-01 15:19 | CM.DPC ---
DCP Cont: Per MD, pt making some progress but still weak and tired and only finishing about half of his liquid diet but will advance his diet to see if he tolerates this. Per RN, TPN still infusing and IV-Abx. Pt not medically stable for discharge at this time. ST checking with MD and RN to determine if Speech therapy could be helpful for dietary and TPN needs. Plan: SW to continue to follow closely to determine if pt will be safe for d/c back home to [facility]. JOSLYN Arreaga
--- NOTE | 2017-12-01 15:49 | PM.PN.1 ---
Subjective Date Patient Seen: 12/01/17 Time Patient Seen: 15:49 Interval history: Timothy is feeling a little better each day. Trying to eat more. Reports he ate half a sandwich today Exam Vital Signs (past 8 hours): - 12/01/17 08:05 12/01/17 08:55 12/01/17 12:00 Temperature 98.4 F 98.3 F Pulse Rate 92 H 96 H Respiratory Rate 16 16 Blood Pressure 115/72 114/71 Pulse Oximetry 97 97 98 Fraction of Inspired Oxygen 21 Oxygen Delivery Method Room Air Oxygen Flow Rate 0 Narrative Exam Narrative: Abdomen is soft, nontender, active bowel sounds. Scant bile stained drainage in the LUPE. Objective Labs Result Diagrams: 12/03/17 05:49 12/04/17 05:35 Labs: Laboratory Results - last 24 hr 12/01/17 06:15 Sodium 138 Potassium 2.5 L* Chloride 95 L Carbon Dioxide 40 H* BUN 10 Creatinine 0.50 L Estimated GFR > 60.0 BUN/Creatinine Ratio 20.0 Glucose 129 H Calcium 7.1 L Assessment & Plan Plan: Assessment/Plan Narrative: Continue TPN for now. Encourage p.o. intake. He will need placement after discharge. Quality VTE Deep Vein Thrombosis/Pulmonary Embolism Present on Admission: No
[2017-12-01] MEDS: CALCIUM IV (18:08)
[2017-12-01] MEDS: LYTES IV (18:08)
[2017-12-01] MEDS: TRACE ELEMENTS IV (18:08)
[2017-12-01] MEDS: [UNRECOGNIZED DRUG - OTHER] IV (18:08)
[2017-12-01] MEDS: MULTIVITAMIN IV (18:08)
[2017-12-01] MEDS: DEXT IV (18:08)
[2017-12-02] VITALS (9 sets, daily range): BP systolic 111–152; BP diastolic 76–96; PULSE 89–111; RESP 16–20; TEMP 36.5–37.1; O2SAT 98–100
[2017-12-02] MEDS: metroNIDAZOLE 500 MG/100 ML PIGGYBACK 100 MG IV ×3 (00:55→17:43)
[2017-12-02 06:25] LABS: Alanine Aminotransferase 25 IU/L (21-72); Albumin Globulin Ratio 0.7 (1.0-2.8); Alkaline Phosphatase 81 U/L (38-126); Aspartate Aminotransferase 53 IU/L (17-59); Bilirubin Total 0.5 mg/dL (0.2-1.3); Blood Urea Nitrogen 7 mg/dL (9-20); Calcium 7.2 mg/dL (8.4-10.2); Carbon Dioxide 33 mmol/L (22-32); Chloride 101 mmol/L (98-107); Estimated Glomerular Filt Rate > 60.0 mL/min (>60); Globulin 2.9 g/dL (1.7-4.1); Glucose 125 mg/dL (80-110); HEMOLYSIS < 15 (0-50); Magnesium 1.6 mg/dL (1.6-2.3); Potassium 3.2 mmol/L (3.4-5.1); Sodium 138 mmol/L (137-145); Total Protein 4.9 g/dL (6.3-8.2)
[2017-12-02] MEDS: PANTOPRAZOLE 40 MG VIAL IV ×2 (08:16→19:18)
[2017-12-02] MEDS: levoFLOXacin 750 MG/150 ML PIGGYBACK 100 MG IV (08:16)
[2017-12-02 09:59] LABS: Creatine Kinase 23 U/L (55-170)
[2017-12-02] MEDS: MAG HYDROX/ALUM/SIMETH 30 ML UDC PO (10:18)
[2017-12-02 10:25] LABS: Troponin I < 0.012 ng/mL (0.01-0.034)
--- NOTE | 2017-12-02 14:03 | PM.PN.1 ---
Subjective Date Patient Seen: 12/02/17 Time Patient Seen: 14:04 Interval history: Not much changed today. Timothy had a pretty severe episode of chest pain this morning. Twelve lead EKG was without any acute changes, troponin and CK were both normal. Maalox to care the chest pain. He reports that it really hurt and he does not really understand why it stopped but it does not hurt now. He also reports that he ate part of a sandwich today. He feels really good about that. Denies abdominal pain. Affect is very flat but when pushed he endorses not feeling worse and possibly feeling better. Exam Vital Signs (past 8 hours): - 12/02/17 06:16 12/02/17 08:19 12/02/17 08:27 Temperature 98.7 F 98.1 F Pulse Rate 105 H 89 106 H Respiratory Rate 16 18 Blood Pressure 152/96 H 137/76 H 111/82 H Pulse Oximetry 100 99 98 Fraction of Inspired Oxygen 21 Oxygen Delivery Method Room Air Oxygen Flow Rate 0 Narrative Exam Narrative: Abdomen: Soft, no tenderness elicited. Drain is minimal and quite serous. Lungs: Very noisy breath sounds once again today. Improve significantly with coughing. Heart: Regular rate and rhythm. Extremities: No change Objective Labs Result Diagrams: 11/30/17 05:42 12/02/17 05:46 Labs: Laboratory Results - last 24 hr 12/02/17 12/02/17 05:46 09:23 Sodium 138 Potassium 3.2 L Chloride 101 Carbon Dioxide 33 H BUN 7 L Creatinine 0.50 L Estimated GFR > 60.0 BUN/Creatinine Ratio 14.0 Glucose 125 H Calcium 7.2 L Magnesium 1.6 Total Bilirubin 0.5 AST 53 ALT 25 Alkaline Phosphatase 81 Total Creatine Kinase 23 L Troponin I < 0.012 Total Protein 4.9 L Albumin 2.0 L Globulin 2.9 Albumin/Globulin Ratio 0.7 L Assessment & Plan Plan: Assessment/Plan Narrative: 1. Severe protein calorie malnutrition. We will continue TPN and add lipids again today. 2. Magnesium is borderline so we will add 1 g to TPN 3. Potassium is returning to normal and alkalosis is significantly improved. We will infuse another 40 mEq rider today. 4. Seven days of antibiotics with drain in place for treatment of a leaking duct of Luschka. I will leave antibiotics for now. Dr. Ortiz will be back tomorrow and the patient will of had a full 7 days of treatment. He can review all the information and decide if the patient needs a longer course of treatment. 5. Mr. Horton remains very weak and very ill though he is improving steadily. Quality VTE Deep Vein Thrombosis/Pulmonary Embolism Present on Admission: No
[2017-12-02] MEDS: POTASSIUM CHLORIDE 40 MEQ in SODIUM CHLORIDE 0.9% 500 ML 130 ML IV (14:12)
--- NOTE | 2017-12-02 15:39 | PC.NURSE ---
day shift pt c/o chest pain this AM. no changes observed on tele, EKG ordered, NSR with PVC. notified Dr Silvestre, cardiac enzymes ordered and Maalox. Troponins were negative. pt states chest pain gone by afternoon, not sure if maalox helped. started on soft mechanical diet, pt ate sandwich for lunch but did feel sick. pt doesn't throw up per say, he states it just doesn't go down and when he's eating it comes back up sometimes. hourly rounding provided, call light within reach.
[2017-12-02] MEDS: CALCIUM IV (17:43)
[2017-12-02] MEDS: MULTIVITAMIN IV (17:43)
[2017-12-02] MEDS: [UNRECOGNIZED DRUG - OTHER] IV (17:43)
[2017-12-02] MEDS: TRACE ELEMENTS IV (17:43)
[2017-12-02] MEDS: DEXT IV (17:43)
[2017-12-02] MEDS: LYTES IV (17:43)
[2017-12-02] MEDS: FAT EMULSIONS 50 GM/250 ML EMULSION IV (17:44)
[2017-12-02] MEDS: INSULIN ASPART 100 UNIT/ML INSULN PEN SUBCUT (18:56)
[2017-12-02] MEDS: LORazepam 2 MG/ML SYRINGE IV (19:36)
[2017-12-03] VITALS (8 sets, daily range): BP systolic 119–145; BP diastolic 77–93; PULSE 101–119; RESP 18–20; TEMP 36.4–37; O2SAT 94–100
[2017-12-03] MEDS: LACTATED RINGERS 1,000 ML 70 ML IV (00:10)
[2017-12-03] MEDS: metroNIDAZOLE 500 MG/100 ML PIGGYBACK 100 MG IV (00:59)
--- NOTE | 2017-12-03 05:29 | PC.NURSE ---
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 Abdomen appears slightly firm and distended, pt reports that he does not feel very bloated and actually feels some improvement other than the weakness. Able to have a loose stool. HR 110-115 once back to bed.
[2017-12-03 06:26] LABS: Basophils Percent Auto 0.3 % (0-2); Blood Urea Nitrogen 6 mg/dL (9-20); Calcium 7.4 mg/dL (8.4-10.2); Carbon Dioxide 31 mmol/L (22-32); Chloride 100 mmol/L (98-107); Eosinophils Percent Auto 1.5 % (2-4); Estimated Glomerular Filt Rate > 60.0 mL/min (>60); Glucose 116 mg/dL (80-110); HEMOLYSIS < 15 (0-50); Hematocrit 27.8 % (41-53); Hemoglobin 8.9 g/dL (13.5-17.5); Lymphocytes Percent Auto 17.2 % (25-40); Magnesium 1.7 mg/dL (1.6-2.3); Mean Corpuscular HGB Conc 31.9 % (30-36); Mean Corpuscular Hemoglobin 26.2 PG (26-34); Mean Corpuscular Volume 82.1 fL (80-100); Monocytes Percent Auto 9.5 % (3-14); Neutrophils Absolute Auto 4800 /uL (3000-5900); Neutrophils Percent Auto 71.5 % (50-75); Platelet Count 357 X10^3/uL (150-400); Potassium 3.6 mmol/L (3.4-5.1); Red Blood Cell Count 3.39 X10^6/uL (4.5-5.9); Sodium 135 mmol/L (137-145); White Blood Cell Count 6.7 X10^3/uL (4.5-11.0)
[2017-12-03 06:28] LABS: Add Manual Diff / Slide Review SLIDE REVIEW
[2017-12-03 07:15] LABS: Anisocytosis 2+
--- NOTE | 2017-12-03 08:15 | P.PN_ITS ---
Subjective Date Patient Seen: 12/03/17 Time Patient Seen: 08:09 Interval history: Patient had episode of chest pain yesterday subsequently resolved spontaneously. EKG and enzymes were normal. He is completely asymptomatic currently. However, continues to have intermittent episodes of mild tachycardia. Sinus rhythm on telemetry. Denies any abdominal pain. Reports liquid stool and urine. Some fecal urgency but no incontinence. Drain output is decreasing nicely status post stent placement after ERCP last week. Remains weak and fatigued. Appetite is poor. Minimal oral intake. Exam Vital Signs (past 8 hours): - 12/03/17 04:00 12/03/17 07:31 Temperature 98.3 F Pulse Rate 102 H Respiratory Rate 18 Blood Pressure 137/92 H Pulse Oximetry 100 97 Fraction of Inspired Oxygen 21 Oxygen Delivery Method Room Air Oxygen Flow Rate 0 Narrative Exam Narrative: Patient remains afebrile otherwise hemodynamically stable. Mildly tachycardic as above. Sinus rhythm. Lying comfortably in bed in no acute distress at the time of my visit. Alert oriented x3. Sclera nonicteric Chest as copious coarse bilateral rhonchi clearing with cough consistent with COPD and tobacco use. Abdomen is slightly distended but soft and nontender. Drain site is clean and intact. Drain output is more serous today with no sharmila bile. Again, output is decreasing nicely with about 90 cc overnight. Incisions are all clean, dry, and intact without erythema or ecchymosis. Extremities show no clubbing, cyanosis, or edema. Left upper extremity PICC line remains intact and functioning. Objective Labs Result Diagrams: 12/03/17 05:49 12/03/17 05:49 Labs: Laboratory Results - last 24 hr 12/02/17 12/03/17 12/03/17 09:23 05:49 05:49 WBC 6.7 RBC 3.39 L Hgb 8.9 L Hct 27.8 L MCV 82.1 MCH 26.2 MCHC 31.9 RDW 22.0 H Plt Count 357 Neut % (Auto) 71.5 Lymph % (Auto) 17.2 L [place] % (Auto) 9.5 Eos % (Auto) 1.5 L Baso % (Auto) 0.3 Neut # (Auto) 4800 RBC Morphology Not Reportable Anisocytosis 2+ H Sodium 135 L Potassium 3.6 Chloride 100 Carbon Dioxide 31 BUN 6 L Creatinine 0.50 L Estimated GFR > 60.0 BUN/Creatinine Ratio 12.0 Glucose 116 H Calcium 7.4 L Magnesium 1.7 Total Creatine Kinase 23 L Troponin I < 0.012 Assessment & Plan Plan: Assessment/Plan Narrative: 67-year-old male slowly healing after laparoscopic cholecystectomy for acute acalculous cholecystitis complicated by bile leak from duct of Luschka now resolving after ERCP and biliary stent placement. However, he remains debilitated with significant severe protein calorie malnutrition. Continue TPN today. His subhepatic abscess with culture showing E coli is resolved. We will discontinue antibiotics today. Diflucan has been completed as well. Continue drain until output is minimal and serous only. Physical therapy has been consulted for mobility and strengthening. Encourage oral intake. Had a discussion with the patient regarding possible PEG placement for nutritional support, but this is potentially fraught with complications due to his protein calorie malnutrition and liver disease. Encouraged oral supplementation. Plan to discontinue TPN in next 24-48 hours. Discontinue lactated Ringer's as he is mildly fluid overloaded. Repeat his complete metabolic panel, magnesium, and phosphorus levels tomorrow. Hemoglobin is stable. He has no evidence of leukocytosis or ongoing infection as above. I had a lengthy discussion with him recommending a [place] [facility] facility placement following discharge possibly later this week from the hospital. He was agreeable to such tentatively. I have discussed the case with discharge coordinators. They will visit with the patient today to discuss options. All questions were answered to his satisfaction, and he voiced understanding. Orders were written. Quality VTE Deep Vein Thrombosis/Pulmonary Embolism Present on Admission: No
[2017-12-03] MEDS: PANTOPRAZOLE 40 MG VIAL IV ×2 (08:54→21:08)
[2017-12-03] MEDS: INSULIN ASPART 100 UNIT/ML INSULN PEN SUBCUT ×2 (11:54→18:26)
--- NOTE | 2017-12-03 11:56 | CM.DPC ---
Clinicals faxed to Dr CHENG @[facility]
[2017-12-03] MEDS: CALCIUM CARBONATE 500 MG TAB 1000 MG PO (12:45)
--- NOTE | 2017-12-03 16:13 | PT.IIE ---
Current Diagnoses Acute cholecystitis (11/26/17) Surgical History (Last Reviewed 11/26/17 @ 16:40 by Jacky Ortiz MD) History of laparoscopic cholecystectomy (Acute) H/O craniotomy (Acute) Medical History (Last Updated 11/26/17 @ 16:45 by Jacky Ortiz MD) Anemia (Acute) Bile leak, postoperative (Acute) Hepatitis C antibody positive in blood (Acute) Moderate protein-calorie malnutrition (Acute) Acalculous cholecystitis (Acute) Alcohol abuse (Acute) COPD (chronic obstructive pulmonary disease) (Acute) Chronic bronchitis with productive mucopurulent cough (Acute) History of skull fracture (Acute) History of traumatic brain injury (Acute) Tobacco abuse (Acute) Physical Therapy Inpatient Evaluation/Re-Eval M1 PT/OT-IP Prior Functional Status Start: 12/03/17 17:36 Freq: NEEDED Status: Active Protocol: Document 12/03/17 16:13 MDD (Rec: 12/03/17 17:49 [facility] [id number]) Medical Review Prior Functional Status Medical History Reviewed Yes Communication normal Mobility and Gait Pt reports using an electric cart for most in home mobility and community mobility. Uses a FWW to take laundry to laundry room. Has a SPC and was using it intermittently. Reports he had not been doing much walking recently. Activities of Daily Living and IADL's independent with dressing, bathing, cooking, cleaning etc . Does not drive. Social History Household Members none Living Arrangements Halfway Number of Floors (Floors) One Floor Number of Stairs To Enter/Railing? none Home Environment Standard Height Toilet Walk in Shower Built-In Shower Seat Home Equipment Four Wheel Walker Power Wheelchair/Scooter Grab Bars In Shower Employment Status Unemployed M2 PT-IP Current Condition Start: 12/03/17 17:36 Freq: NEEDED Status: Active Protocol: Document 12/03/17 16:13 MDD (Rec: 12/03/17 17:49 MDD [id number]) Physical Therapy Current Condition Current Condition Evaluation Date 12/03/17 Treatment Diagnosis impaired mobility, weakness Onset Date 11/27/17 Precautions Abdominal Surgery Precautions Log Roll Lifting Restrictions Gait Belt above Incisional Area Weight Bearing Status Weight Bearing Status Weight Bear as Tolerated M3 PT-IP Subjective Start: 12/03/17 17:36 Freq: NEEDED Status: Active Protocol: Document 12/03/17 16:13 MDD (Rec: 12/03/17 17:49 [facility] [id number]) Subjective Physical Therapy Visit Type Type Initial Evaluation Visit Start Time 15:34 Visit Stop Time 16:13 Total Visit Minutes 39 Number of HOUSETRAILER SERVICER Visits 0 Physical Therapy Visit Comments Patient Comments Pt agreeable to participate in therapy this afternoon. Denies pain but does report some indigestion. Therapy Pain Assessment Pain Present Pain Present Denied Pain M4 PT-IP Mobility and Gait Start: 12/03/17 17:36 Freq: NEEDED Status: Active Protocol: Document 12/03/17 16:13 MDD (Rec: 12/03/17 17:49 [facility] [id number]) PT-Bed Mobility Assessment Supine to Sit Supine to Sit Standby Assistance Head of Bed Elevated Sit to Supine Sit to Supine Standby Assistance Head of Bed Elevated Scooting Scooting to Edge of Bed Standby Assistance Scooting Up and Down in Bed Standby Assistance PT-Transfer Assessment Sit to and From Stand Sit to and from Stand Minimal Assistance Equipment Transfer Assistive Device Gait Belt Front Wheeled Walker Transfers Transfer Destination Toilet Transfer Ability Level of Assist Contact Guard Assistance Gait Assessment Gait Gait Assistance Required: Contact Guard Assist Distance (Feet) (feet) 75 Assistive Devices Assistive Device Gait Belt Front Wheeled Walker Gait Deviations General Gait Pattern Decreased Stride Length Decreased Feet Clearance Flexed Trunk Step-to Gait Comments Gait Comments Difficulty maintaining proximity to walker and navigating walker safely. Requires cues for upright posture. Pt initially attempted to ambulate using IV pole, reaching for chair, counter and solomon as he walks. Very unsteady on his feet. PT-Balance Assessment Sitting Balance and Reactions Static Sitting Balance Ability Normal Dynamic Sitting Balance Ability Normal Standing Balance and Reactions Static Standing Balance Ability Fair Dynamic Standing Balance Ability Fair M5 PT-IP Objective Assessments Start: 12/03/17 17:36 Freq: NEEDED Status: Active Protocol: Document 12/03/17 16:13 MDD (Rec: 12/03/17 17:49 [facility] [id number]) Orientation Orientation/Cognition Level of Alertness Alert Orientation Name Birthday Place Situation Language Function Ability No Deficits Noted Safety Awareness Decreased Safety Awareness Comments Pt is somewhat impulsive with movements, requires cues for safety with FWW. Gross Range of Motion Lower Extremity ROM Assessment Within Functional Limits Strength Lower Extremity Strength Assessment Within Functional Limits Sensation Assessment Sensation Gross Sensation WNL M6 PT-IP Treatment Start: 12/03/17 17:36 Freq: NEEDED Status: Active Protocol: Document 12/03/17 16:13 MDD (Rec: 12/03/17 17:49 [facility] [id number]) Physical Therapy Treatment Education Education Provided Safety M7 PT-IP Assessment and Plan Start: 12/03/17 17:36 Freq: NEEDED Status: Active Protocol: Document 12/03/17 16:13 MDD (Rec: 12/03/17 17:49 [facility] [id number]) PT Summary Assessment and Plan Potential Rehabilitation Potential Good Status of Condition at Evaluation Evolving Summary Impairments Strength Balance Bed Mobility Transfers Gait Activity Tolerance Progress Towards Goals Progressing Toward Goals Assessment Summary Pt demonstrates impaired balance, gait and activity tolerance this day. He presents a high fall risk with some impulsive behaviors. This appears to be well below his previous functional baseline and he may benefit from additional inpatient rehab to maximize function. Pt may also benefit from stay in SNF prior to returning home independently. Goals Bed Mobility Goal Independent Transfer Goal Independent Gait Goal Independent Gait Distance 50 feet Days to Meet Goals 3 Frequency of Treatment Frequency Of Treatment Once a Day Treatment Plan Physical Therapy Treatment Plan Bed Mobility Training Transfer Training Gait Training Therapeutic Exercise Discharge Planning Recommendations To Nursing Amount of Assist Needed 1 Person Assist Discharge Recommendations PT Discharge Recommendations SNF Rehab
[2017-12-03] MEDS: LYTES IV (18:07)
[2017-12-03] MEDS: [UNRECOGNIZED DRUG - OTHER] IV (18:07)
[2017-12-03] MEDS: CALCIUM IV (18:07)
[2017-12-03] MEDS: FAT EMULSIONS 50 GM/250 ML EMULSION IV (18:07)
[2017-12-03] MEDS: MULTIVITAMIN IV (18:07)
[2017-12-03] MEDS: DEXT IV (18:07)
[2017-12-03] MEDS: TRACE ELEMENTS IV (18:07)
[2017-12-04] VITALS (7 sets, daily range): BP systolic 128–137; BP diastolic 68–84; PULSE 90–119; RESP 16–19; TEMP 36.8–37.6; O2SAT 94–99
[2017-12-04 06:26] LABS: Alanine Aminotransferase 27 IU/L (21-72); Albumin 2.2 g/dL (3.5-5.0); Albumin Globulin Ratio 0.7 (1.0-2.8); Alkaline Phosphatase 107 U/L (38-126); Aspartate Aminotransferase 54 IU/L (17-59); Bilirubin Total 0.4 mg/dL (0.2-1.3); Blood Urea Nitrogen 7 mg/dL (9-20); Calcium 7.3 mg/dL (8.4-10.2); Carbon Dioxide 30 mmol/L (22-32); Chloride 101 mmol/L (98-107); Estimated Glomerular Filt Rate > 60.0 mL/min (>60); Glucose 106 mg/dL (80-110); HEMOLYSIS < 15 (0-50); Magnesium 2.1 mg/dL (1.6-2.3); Phosphorous 2.9 mg/dL (2.3-3.7); Potassium 3.6 mmol/L (3.4-5.1); Sodium 135 mmol/L (137-145); Total Protein 5.2 g/dL (6.3-8.2)
[2017-12-04] MEDS: PANTOPRAZOLE 40 MG VIAL IV ×2 (09:51→20:45)
--- NOTE | 2017-12-04 11:14 | PT.IPTN ---
Current Diagnoses Acute cholecystitis (11/26/17) Physical Therapy Treatment Note M2 PT-IP Current Condition Start: 12/03/17 17:36 Freq: NEEDED Status: Active Protocol: Document 12/03/17 16:13 MDD (Rec: 12/03/17 17:49 [facility] [id number]) Physical Therapy Current Condition Current Condition Evaluation Date 12/03/17 Treatment Diagnosis impaired mobility, weakness Onset Date 11/27/17 Precautions Abdominal Surgery Precautions Log Roll Lifting Restrictions Gait Belt above Incisional Area Weight Bearing Status Weight Bearing Status Weight Bear as Tolerated M3 PT-IP Subjective Start: 12/03/17 17:36 Freq: NEEDED Status: Active Protocol: Document 12/04/17 12:44 MDD (Rec: 12/04/17 12:49 [facility] [id number]) Subjective Physical Therapy Visit Type Type Treatment Note Visit Start Time 10:49 Visit Stop Time 11:14 Total Visit Minutes 25 Number of PRODUCTION LINE SOLDERER Visits 0 Physical Therapy Visit Comments Patient Comments Pt is agreeable to working with therapy this day. Reports he is tired. Therapy Pain Assessment Pain Present Pain Present Denied Pain M4 PT-IP Mobility and Gait Start: 12/03/17 17:36 Freq: NEEDED Status: Active Protocol: Document 12/03/17 16:13 MDD (Rec: 12/03/17 17:49 [facility] [id number]) PT-Bed Mobility Assessment Supine to Sit Supine to Sit Standby Assistance Head of Bed Elevated Sit to Supine Sit to Supine Standby Assistance Head of Bed Elevated Scooting Scooting to Edge of Bed Standby Assistance Scooting Up and Down in Bed Standby Assistance PT-Transfer Assessment Sit to and From Stand Sit to and from Stand Minimal Assistance Equipment Transfer Assistive Device Gait Belt Front Wheeled Walker Transfers Transfer Destination Toilet Transfer Ability Level of Assist Contact Guard Assistance Gait Assessment Gait Gait Assistance Required: Contact Guard Assist Distance (Feet) (feet) 75 Assistive Devices Assistive Device Gait Belt Front Wheeled Walker Gait Deviations General Gait Pattern Decreased Stride Length Decreased Feet Clearance Flexed Trunk Step-to Gait Comments Gait Comments Difficulty maintaining proximity to walker and navigating walker safely. Requires cues for upright posture. Pt initially attempted to ambulate using IV pole, reaching for chair, counter and solomon as he walks. Very unsteady on his feet. PT-Balance Assessment Sitting Balance and Reactions Static Sitting Balance Ability Normal Dynamic Sitting Balance Ability Normal Standing Balance and Reactions Static Standing Balance Ability Fair Dynamic Standing Balance Ability Fair M5 PT-IP Objective Assessments Start: 12/03/17 17:36 Freq: NEEDED Status: Active Protocol: Document 12/03/17 16:13 MDD (Rec: 12/03/17 17:49 [facility] [id number]) Orientation Orientation/Cognition Level of Alertness Alert Orientation Name Birthday Place Situation Language Function Ability No Deficits Noted Safety Awareness Decreased Safety Awareness Comments Pt is somewhat impulsive with movements, requires cues for safety with FWW. Gross Range of Motion Lower Extremity ROM Assessment Within Functional Limits Strength Lower Extremity Strength Assessment Within Functional Limits Sensation Assessment Sensation Gross Sensation WNL M6 PT-IP Treatment Start: 12/03/17 17:36 Freq: NEEDED Status: Active Protocol: Document 12/04/17 12:44 MDD (Rec: 12/04/17 12:49 [facility] [id number]) Physical Therapy Treatment Exercises Exercises Seated Knee Flexion/Extension Other Treatments Other Treatment Performed Bed mobility: cues for log roll, min A for supine to sit with HOB flat. Gait training to and from bathroom using FWW (therapist managing IV pole) with CGA, additional gait x 212 feet. Gait pattern much improved with longer stride lengths and better control/ navigation of walker. Requires less cueing for upright posture. Seated therex: seated knee extension, seated marching x 10 each. Standing therex (w/ FWW): hip abduction, hip extension, heel raises x 10 each. M7 PT-IP Assessment and Plan Start: 12/03/17 17:36 Freq: NEEDED Status: Active Protocol: Document 12/04/17 12:44 MDD (Rec: 12/04/17 12:49 [facility] [id number]) PT Summary Assessment and Plan Potential Rehabilitation Potential Good Status of Condition at Evaluation Evolving Summary Impairments Strength Balance Bed Mobility Gait Activity Tolerance Progress Towards Goals Progressing Toward Goals Assessment Summary Pt demonstrates significantly improved gait pattern this day with stride through pattern and improved use of FWW. Continues to have minor difficulty with bed mobility. Goals Bed Mobility Goal Independent Transfer Goal Independent Gait Goal Independent Gait Distance 50 feet Days to Meet Goals 3 Frequency of Treatment Frequency Of Treatment Once a Day Treatment Plan Physical Therapy Treatment Plan Bed Mobility Training Transfer Training Gait Training Therapeutic Exercise Discharge Planning Recommendations To Nursing Amount of Assist Needed 1 Person Assist Discharge Recommendations PT Discharge Recommendations SNF Rehab
--- NOTE | 2017-12-04 11:18 | P.PN_ITS ---
Subjective Date Patient Seen: 12/04/17 Time Patient Seen: 11:13 Interval history: No new complaints. Denies pain. No nausea or vomiting. Denies any chest pain or shortness of breath. Still feels very weak and debilitated. Was relatively unstable with physical therapy yesterday requiring significant assistance. Appetite remains poor. However he is tolerating what little oral intake he does have currently. No subjective fever or chills. Moved his bowels yesterday which he reported was normal. No dysuria. Exam Vital Signs (past 8 hours): - 12/04/17 04:30 12/04/17 07:42 Temperature 98.3 F 98.7 F Pulse Rate 90 96 H Respiratory Rate 18 16 Blood Pressure 128/73 H 135/77 H Pulse Oximetry 99 99 Fraction of Inspired Oxygen 21 Oxygen Delivery Method Room Air Oxygen Flow Rate 0 Narrative Exam Narrative: Elderly male in no acute distress but appears chronically ill. Alert oriented x3 Sclera nonicteric Regular rate and rhythm. Continues to have copious rhonchi clearing with cough. Abdomen soft, nondistended, nontender, no masses. Drain site is clean. Incisions are all clean, dry, and intact without erythema or ecchymosis. Extremities show no clubbing or cyanosis. Left upper extremity PICC site is clean. Drain output remained several hundred cc per day. Output currently is bile tinged but not sharmila bile. Objective Labs Result Diagrams: 12/03/17 05:49 12/04/17 05:35 Labs: Laboratory Results - last 24 hr 12/04/17 05:35 Sodium 135 L Potassium 3.6 Chloride 101 Carbon Dioxide 30 BUN 7 L Creatinine 0.50 L Estimated GFR > 60.0 BUN/Creatinine Ratio 14.0 Glucose 106 Calcium 7.3 L Phosphorus 2.9 Magnesium 2.1 Total Bilirubin 0.4 AST 54 ALT 27 Alkaline Phosphatase 107 Total Protein 5.2 L Albumin 2.2 L Globulin 3.0 Albumin/Globulin Ratio 0.7 L Assessment & Plan Plan: Assessment/Plan Narrative: 67-year-old male status post laparoscopic cholecystectomy complicated by bile leak from duct of Luschka now resolving status post ERCP with biliary stent placement who continues to have issues with severe protein calorie malnutrition and overall debilitation. TPN may actually be suppressing his appetite. We will therefore discontinue the TPN after today's infusion. Add Megace. Continue the Esvin-Schofield drain until such time the leak is completely resolved and output is minimal. This may take several weeks. Continue aggressive ambulation and physical therapy. Regular diet as tolerated with significant protein supplementation in the form of Boost or Ensure. Patient require assisted facility in my opinion as previously documented. I have discussed this with the discharge coordinators again today. I mentioned this to the patient again also. All questions were answered to his satisfaction , and he voiced understanding. If he remains stable then he could be discharged from the hospital in the next 1-2 days. Orders were written. Proceed as above. Quality VTE Deep Vein Thrombosis/Pulmonary Embolism Present on Admission: No
[2017-12-04] MEDS: MEGESTROL 20 MG TABLET 40 MG PO (13:06)
--- NOTE | 2017-12-04 13:21 | CM.DPC ---
DCP SNF Planning Per Dr. Ortiz, pt will require daily drain care, aggressive daily PT and recommending SNF at d/c prior to return to [facility] independent retirement. Per , likely another 24-48 hours before stable for discharge to SNF. SW met bedside with pt and explained role and discussed discharge needs and SNF recommendation and provided the pt with the SNF Choice List and pt states that he is agreeable to SNF due to his high d/c needs and preference is [facility] due to proximity to [facility]. SW discussed Medicare coverage of SNF and pt acknowledged understanding. SW called [facility] and made new referral and [facility] in admissions is reviewing. SW completed pt's PASRR for SNF. Plan: SW to follow for SNF placement at d/c and [facility] review towards possible placement. JOSLYN Arreaga
--- NOTE | 2017-12-04 13:56 | PC.NURSE ---
Pt started on megace today. BS at noon 126, o insulin needed. Pt is resting comfortably in bed. Using urinal at bedside. Voices no complaints of discomfort.
[2017-12-04] MEDS: INSULIN ASPART 100 UNIT/ML INSULN PEN SUBCUT (18:40)
[2017-12-04] MEDS: DOCUSATE 100 MG CAPSULE PO (20:45)
[2017-12-05] VITALS (7 sets, daily range): BP systolic 110–118; BP diastolic 68–83; PULSE 89–104; RESP 14–18; TEMP 36.6–37.4; O2SAT 95–100
--- NOTE | 2017-12-05 08:00 | PM.DS.1 ---
History of Present Illness Date Patient Seen: 12/05/17 Time Patient Seen: 08:02 Chief complaint: LAB EO/ BILE LEAK Narrative: Patient denies any current nausea or vomiting. Appetite slowly improving. Tolerating his oral intake without issues. No pain. Reports normal urine output. Passing flatus and stool. No subjective fever or chills. No further chest pain or shortness of breath. No dizziness. Continues to ambulate with assistance using a walker under the guidance of physical therapy services. Overall, he is feeling better since admission. Discharge Providers Date of admission: 11/26/17 16:42 Primary care physician: Jonathan Zhu MD Consults: 11/26/17 16:51 Consult to Discharge Planning Routine Comment: 11/26/17 17:00 Consult to Dietitian, Adult Routine Comment: Reason For Exam: protein malnutrition Consult to Respiratory Therapy Evaluate & Treat Comment: Physician Instructions: Evaluate and treat 11/26/17 17:42 Consult to Dietitian, Adult Routine Comment: Reason For Exam: high risk; post-op cholecystectomy, vomiting Consult to Advertising Writer Routine Comment: 11/26/17 19:23 Consult to Dietitian, Adult Routine Comment: Reason For Exam: poor nutrition, recent surgery, vomiting Consult to Advertising Writer Routine Comment: 11/29/17 08:10 Consult to PICC Line RN Routine Comment: 12/03/17 08:04 Consult to Discharge Planning Routine Comment: possible SNF placement this week 12/03/17 08:05 Consult to Physical Therapy Evaluate & Treat Comment: severe malnutrition and debilitation Physician Instructions: Evaluate and Treat Discharge provider: Jacky Ortiz MD Summary Discharge Diagnosis: 1. Acute acalculous cholecystitis, resolved 2. Status post laparoscopic cholecystectomy with attempted intraoperative cholangiography October 2017 3. Severe protein calorie malnutrition with prealbumin 3.5, slowly improving 4. History of alcohol abuse, stable 5. Tobacco abuse 6. COPD 7. Active hepatitis-C 8. History of craniotomy following trauma in the distant past 9. Chronic bronchitis 10. History of skull fracture in the distant past 11. Bile leak from duct of Luschka status post laparoscopic cholecystectomy, resolving 12. ERCP with sphincterotomy and biliary stent placement 13. Subhepatic abscess significant for E coli, subsequently resolved after treatment with full course of IV antibiotics 14. Left upper extremity PICC line placement this admission Hospital Course: Patient was seen in the office approximately 10 days after laparoscopic cholecystectomy for acute acalculous cholecystitis at which time he was complaining of nausea, anorexia, and progressive weakness. His drain, which had been placed at the time of surgery, was noted to have output more bilious in nature. Volume was increasing also. Examination and evaluation were potentially consistent with bile leak. Liver function tests are mildly elevated including a total bilirubin of 2.0. He was admitted for IV fluid resuscitation. His white blood cell count was elevated to 20,000 at the time of admission consistent with infection. Fluid cultures from the drain confirmed E coli sensitive to most antibiotics. No evidence of multidrug resistance. He also had some yeast in the culture. He was placed initially on Zosyn and Diflucan. Zosyn was changed to Levaquin and Flagyl to which he responded nicely. He had no fevers thereafter. After a full course of antibiotics these were discontinued. He remains afebrile since initial admission date. Blood pressure is normal. He becomes mildly tachycardic with exertion at the time of physical therapy, but otherwise has a normal sinus rhythm. He did have 1 episode several days prior to discharge of some mild chest pain and dyspnea but had no evidence of EKG changes, rhythm change, or acute cardiac event based on cardiac enzyme evaluation. Symptoms spontaneously resolved shortly thereafter and have not recurred. His white blood cell count and liver function tests have also normalized since admission following full course of antibiotics as well as ERCP with biliary stent placement per the gastroenterology service at [facility]. Drain output has now decreased from 1.5 L per day to 450 mL per day at the time of discharge. Furthermore, there is no sharmila bile in the drain all the fluid does remain mildly bile tinged. A PICC line was placed and he was begun on TPN for nutritional support due to significant severe protein calorie malnutrition. Prealbumin was 3.5 at admission. Dietary consultation was obtained and appropriate nutritional supplements were ordered. Patient is consuming these at the time of discharge. Again, his appetite and oral intake are improving. He was begun on Megace to assist with this as well. He has had spontaneous return of normal bowel bladder function without issues. Pain is essentially resolved and he is not requiring any significant analgesics at this time. Because of his significant history of alcohol use he was placed on CIWA protocol but this core was never above 3 and he required no significant supplementation with Ativan for signs of delirium tremens. He responded well to aggressive pulmonary toilet including albuterol and incentive spirometry, especially in light of his tobacco abuse history. Physical therapy worked with the patient aggressively and he continues to slowly rehabilitate under their guidance. Currently he is using a walker for assistance. Because of his overall improved condition at this time with control of the bile leak status post ERCP he is discharged to long term facility. He requires ongoing long term care for drain management, drain output monitoring, aggressive physical therapy, rehabilitation, and nutritional support. Plan is to continue the drain for likely a number of weeks until he has absolutely no evidence of bilious output in the fluid and the output is minimal. He will follow up with Gastroenterology in approximately 4-6 weeks for potential stent removal if there is no evidence of ongoing bile leakage. I discussed all the above with the patient in detail, and questions were answered to his satisfaction. He voiced understanding. He was agreeable to the plan. He will follow up in surgery Clinic in 2 weeks or sooner for any new issues or problems. Status at Discharge Cognitive/behavioral status at discharge: Patient alert oriented x3. He has had no issues with alcohol withdrawal or any signs thereof. Functional status at discharge: uses cane/walker Overall status at discharge: patient is progressing back to baseline Time Spent with Patient Less than 30 minutes Time spent discussing smoking cessation with patient: more than 10 minutes Exam Vital Signs (past 8 hours): - 12/05/17 00:19 12/05/17 01:34 12/05/17 05:09 Temperature 99.0 F 98.4 F Pulse Rate 100 H 89 Respiratory Rate 14 14 Blood Pressure 116/83 H 118/70 Pulse Oximetry 97 97 97 Fraction of Inspired Oxygen 21 Oxygen Delivery Method Room Air Oxygen Flow Rate 0 Narrative Exam Narrative: Thin elderly male in no acute distress lying comfortably in bed. Alert oriented x3. Sclera nonicteric Neck is supple without lymphadenopathy did Chest is significant for copious bilateral coarse rhonchi which clear with cough. No crackles or wheezes. Regular rate and rhythm. No murmurs. Abdomen is soft and nondistended. Normal bowel sounds throughout. Incisions are all clean, dry, and intact with normal inflammatory scar formation. No hernias. No erythema, hematoma, seroma, or ecchymoses. He is completely nontender to palpation. No guarding or rebound. No masses. No obvious ascites. No hepatomegaly. Drain site is clean and intact. Drain is collecting bile tinged serous fluid only. No gross pus. No sharmila bile. No blood. Extremities show no clubbing, cyanosis, or edema. Objective Labs Result Diagrams: 12/03/17 05:49 12/04/17 05:35 Labs: His initial HIDA scan demonstrated no obvious bile leak. However subsequent ERCP demonstrated a small leak from a duct of Luschka which was treated with sphincterotomy and stent placement. Chest x-ray during this admission showed no acute pulmonary infiltrates or other abnormalities. Discharge Plan Discharge Plan Patient Disposition: SNF Transfer to: [facility] Under care of provider: Jacky Ortiz MD Transportation: Wheelchair Diagnostic studies (x-ray, etc.): none Labs: none Consult as needed: Dental, Hearing, Mental health, Podiatry and Vision Discharge comment: 1. Patient requires Esvin-Schofield drain care. Empty and record drain output every 8 hr and as needed. 2. Daily aggressive physical therapy for overall debilitation 3. Nutritional therapy and dietary supplementation daily with each meal for severe protein calorie malnutrition I certify the postop hospital long term care is medically necessary on a continuing basis for any conditions for which he/ she received care during this hospitalization.: Yes The receiving facility has agreed to accept transfer and provide medical treatment.: Yes Discharge Med Rec/Prescriptions Prescriptions: New pantoprazole 40 mg Tablet,Delayed Release (Dr/Ec) 40 mg PO 0700 Qty: 30 RF: 0 calcium carbonate 200 mg calcium (500 mg) Tablet,Chewable 1,000 mg PO Q4HR PRN (Reason: Dyspepsia) Qty: 40 RF: 0 ibuprofen 600 mg Tablet 600 mg PO Q6HR PRN (Reason: As Needed For Fever/Mild Pain) Qty: 60 RF: 1 megestrol 20 mg Tablet 40 mg PO DAILY Qty: 30 RF: 1 oxycodone 5 mg Tablet 5 mg PO Q6HR PRN (Reason: Pain, Moderate (4-6)) Qty: 30 RF: 0 acetaminophen [Tylenol Extra Strength] 500 mg tablet 500 mg PO Q6H PRN (Reason: fever or pain) Qty: 60 RF: 1 simethicone 125 mg tablet 125 mg PO BID-QID PRN (Reason: abdominal distention) Qty: 20 RF: 1 albuterol sulfate 90 mcg/actuation HFA aerosol inhaler 2 puff INHALATION QID Qty: 6.7 RF: 2 Continue sennosides [Senokot] 8.6 mg tablet 8.6 mg PO BEDTIME Qty: 10 RF: 1 docusate sodium [Colace] 100 mg capsule 100 mg PO BID Qty: 14 RF: 1 Discontinued oxycodone 5 mg tablet 5 mg PO Q3H PRN (Reason: pain) Qty: 30 RF: 0 Follow up/Referrals: Jacky Ortiz MD [Physician] - 2 Weeks (Call [phone] for appointment date and time) Discharge Health Status Brief summary of current health status: Patient who presented several weeks ago with severe epigastric abdominal pain consistent with acute acalculous cholecystitis requiring urgent laparoscopic cholecystectomy. Postoperative course was complicated by minor bile duct leak subsequently corrected with ERCP and stent. Requires aggressive physical therapy, nutritional support, and drain care. Multidrug resistant organism: No MDRO MDRO Verified by culture: No Provider Discharge Instructions Diet: Diet as Tolerated Liquid consistency: Normal/Thin Food texture: Regular Diet comment: Add 1 can of Ensure or Boost to each meal and as a snack daily Activity: As tolerated with physical therapy. Currently requiring walker and assistance for mobility. Requires strengthening. Cold/Heat Therapy: May apply ice packs to incisions as needed for comfort Skin/Wound/Dressing Care Report to your healthcare provider any signs of infection, such as:: chills, fever and increased pain Dressing: Dry split drain sponge around drain insertion site right abdomen. Change dressing once daily and as needed for soilage. No other dressings necessary. Other wound treatment: May shower and clean wounds with gentle soap and water daily. Do not soak incision in bathtub or pool until further notice Special Rehabilitation Services Reason for rehabilitation: Post-operative therapy, Recovery r/t decondition and Other Rehab type: Physical therapy and Occupational therapy Discharge Data Primary Care Provider: Jonathan Zhu Attending Provider: Jacky Ortiz Admit Date/Time: 11/26/17 16:42 Quality VTE Deep Vein Thrombosis/Pulmonary Embolism Present on Admission: No
[2017-12-05] MEDS: MEGESTROL 20 MG TABLET 40 MG PO (08:46)
--- NOTE | 2017-12-05 09:21 | PC.NURSE ---
Assess- Pt is going to be discharged to [facility] today. He ate about 50% of his breakfast and drank ensure. He also has gotten himself up to the side of the bed and is giving himself a bed bath independently. Pt did not attempt this yesterday. He has 3 small incisions to his abdomen that are healing well and a LUPE drain to his r.side. Area is open to air and sutured in. Pt just had 75cc of yellowish colored drainage out. He is in good spirits today and ready to be discharged to [facility].
[2017-12-05] MEDS: IBUPROFEN 600 MG TABLET PO (10:54)
--- NOTE | 2017-12-05 11:00 | PT.IPTN ---
Current Diagnoses Acute cholecystitis (11/26/17) Physical Therapy Treatment Note M2 PT-IP Current Condition Start: 12/03/17 17:36 Freq: NEEDED Status: Active Protocol: Document 12/03/17 16:13 MDD (Rec: 12/03/17 17:49 MDD [id number]) Physical Therapy Current Condition Current Condition Evaluation Date 12/03/17 Treatment Diagnosis impaired mobility, weakness Onset Date 11/27/17 Precautions Abdominal Surgery Precautions Log Roll Lifting Restrictions Gait Belt above Incisional Area Weight Bearing Status Weight Bearing Status Weight Bear as Tolerated M3 PT-IP Subjective Start: 12/03/17 17:36 Freq: NEEDED Status: Active Protocol: Document 12/05/17 11:00 GGD (Rec: 12/05/17 11:55 GGD [id number]) Subjective Physical Therapy Visit Type Type Treatment Note Visit Start Time 10:35 Visit Stop Time 11:00 Total Visit Minutes 25 Number of EDGING MACHINE FEEDER Visits 1 Physical Therapy Visit Comments Patient Comments Pt states he would like to get up. M4 PT-IP Mobility and Gait Start: 12/03/17 17:36 Freq: NEEDED Status: Active Protocol: Document 12/05/17 11:00 GGD (Rec: 12/05/17 11:56 GGD [id number]) PT-Bed Mobility Assessment Rolling Type of Rolling Log Rolling Level of Assist Contact Guard Assistance Supine to Sit Supine to Sit Contact Guard Assistance Scooting Scooting to Edge of Bed Standby Assistance PT-Transfer Assessment Sit to and From Stand Sit to and from Stand Contact Guard Assistance Equipment Transfer Assistive Device Gait Belt Front Wheeled Walker Transfers Transfer Destination Chair Transfer Ability Level of Assist Contact Guard Assistance Gait Assessment Gait Gait Assistance Required: Contact Guard Assist Distance (Feet) (feet) 225 Assistive Devices Assistive Device Gait Belt Front Wheeled Walker Gait Deviations General Gait Pattern Decreased Stride Length Decreased Feet Clearance Flexed Trunk Step-to Gait M5 PT-IP Objective Assessments Start: 12/03/17 17:36 Freq: NEEDED Status: Active Protocol: Document 12/03/17 16:13 MDD (Rec: 12/03/17 17:49 MDD [id number]) Orientation Orientation/Cognition Level of Alertness Alert Orientation Name Birthday Place Situation Language Function Ability No Deficits Noted Safety Awareness Decreased Safety Awareness Comments Pt is somewhat impulsive with movements, requires cues for safety with FWW. Gross Range of Motion Lower Extremity ROM Assessment Within Functional Limits Strength Lower Extremity Strength Assessment Within Functional Limits Sensation Assessment Sensation Gross Sensation WNL M6 PT-IP Treatment Start: 12/03/17 17:36 Freq: NEEDED Status: Active Protocol: Document 12/04/17 12:44 MDD (Rec: 12/04/17 12:49 MDD [id number]) Physical Therapy Treatment Exercises Exercises Seated Knee Flexion/Extension Other Treatments Other Treatment Performed Bed mobility: cues for log roll, min A for supine to sit with HOB flat. Gait training to and from bathroom using FWW (therapist managing IV pole) with CGA, additional gait x 212 feet. Gait pattern much improved with longer stride lengths and better control/ navigation of walker. Requires less cueing for upright posture. Seated therex: seated knee extension, seated marching x 10 each. Standing therex (w/ FWW): hip abduction, hip extension, heel raises x 10 each. M7 PT-IP Assessment and Plan Start: 12/03/17 17:36 Freq: NEEDED Status: Active Protocol: Document 12/05/17 11:00 GGD (Rec: 12/05/17 11:55 GGD [id number]) PT Summary Assessment and Plan Summary Assessment Summary Pt improving with mobility. HE need cues with gait for use of FWW. He had mild unsteadiness. He need cues for log roll with bed mobility. Frequency of Treatment Frequency Of Treatment Once a Day Treatment Plan Physical Therapy Treatment Plan Bed Mobility Training Transfer Training Gait Training Therapeutic Exercise Discharge Planning Recommendations To Nursing Amount of Assist Needed 1 Person Assist
--- NOTE | 2017-12-05 12:43 | CM.DPC ---
PRP Cont Called Lurdes at [facility], admissions, to inquire if facility could accept patient, for Dr. Ortiz wanted to discharge patient today. Had medication list printed and signed. Concern of facility is that patient was taken off his TPN yesterday, and facility needs 24-48 hours of documentation stating that he is eating. As they have access to EMR, stated that his appetite was poor. Nurse today stated he was eating. Lurdes was going to consult with Dr. Jordan regarding accepting patient today, and she also stated that they do not do TPN at their facility. They wanted to make sure he is eating before accepting. After consulting with Dr. Sanchez she stated that they would have to wait another 24 hours, and would need sufficient documentation to support his appetite. Dr. Ortiz, discharging doctor, was updated. Planning for discharge tomorrow at [facility]. Nurse also aware of situation. P: Discharge to [facility] tomorrow, 12/06. Updated patient as well. Evelyn Mahmood RN/Multiskill Operator
--- NOTE | 2017-12-05 15:13 | PC.NURSE ---
took in 50% of breakfast and 70% of lunch.
[2017-12-05] MEDS: DOCUSATE 100 MG CAPSULE PO (20:20)
[2017-12-06 01:52] VITALS: BP 134/76; PULSE 102; RESP 16; TEMP 37.3; O2SAT 97
[2017-12-06 01:58] VITALS: O2SAT 97
--- NOTE | 2017-12-06 02:03 | PC.NURSE ---
Addendum entered by Denise Montelongo R.N. 12/06/17 06:12: Slept well most of night. Up to bathroom this morning and states had a good bowel movement. Reports he felt pukey during the night but did not inform RN/LEAF SIZE PICKER; reminded to call when he has nausea so antiemetic can be given. Denies emesis. Discussed poor appetite and patient states he would eat more if the food was better; describes food as dry and chunky. Informed him that other food can be provided if what comes on meal trays is not to his liking. Also discussed food may be brought in as long as it is low sodium and heart healthy; patient encouraged to discuss further with MD. Original Note: Patient is alert and oriented except to actual date; states there's no calendar. Can't remember which day he was admitted or how long he has been here but is aware of why and that he had stent placed at [facility]. Breath sounds with expiratory wheezes in right mid/lower lobes. Denies feeling SOB. Does have moist, chronic cough and states he occasionally coughs up white frothy sputum. RA sat 97%. HRR but slightly tachy in low 100's. Denies nausea. BT present; abdomen is soft, non-tender but distended. Lap sites scabbed with no signs of infection. LUPE intact, emptied of yellow liquid and recompressed. Denies urinary concerns and is using urinal at bedside; is continent. Independent with bed mobility. Denies pain. Agreeable to having SCD's placed at this time. Fall risk score is high and bed alarm is activated.
[2017-12-06 04:00] VITALS: BP 126/71; PULSE 100; RESP 16; TEMP 37.2; O2SAT 97
[2017-12-06] MEDS: PANTOPRAZOLE 40 MG TABLET PO (06:03)
[2017-12-06 08:00] VITALS: BP 111/70; PULSE 115; RESP 18; TEMP 36.9; O2SAT 98
[2017-12-06] MEDS: SODIUM CHLORIDE 0.9% FLUSH 10 ML IV (09:57)
[2017-12-06] MEDS: MEGESTROL 20 MG TABLET 40 MG PO (09:57)
[2017-12-06] MEDS: IBUPROFEN 600 MG TABLET PO (09:58)
--- NOTE | 2017-12-06 10:59 | PT.IPTN ---
Current Diagnoses Acute cholecystitis (11/26/17) Physical Therapy Treatment Note M2 PT-IP Current Condition Start: 12/03/17 17:36 Freq: NEEDED Status: Active Protocol: Document 12/03/17 16:13 MDD (Rec: 12/03/17 17:49 MDD [id number]) Physical Therapy Current Condition Current Condition Evaluation Date 12/03/17 Treatment Diagnosis impaired mobility, weakness Onset Date 11/27/17 Precautions Abdominal Surgery Precautions Log Roll Lifting Restrictions Gait Belt above Incisional Area Weight Bearing Status Weight Bearing Status Weight Bear as Tolerated M3 PT-IP Subjective Start: 12/03/17 17:36 Freq: NEEDED Status: Active Protocol: Document 12/06/17 10:25 GGD (Rec: 12/06/17 10:59 GGD [email or web address]) Subjective Physical Therapy Visit Type Type Treatment Note Visit Start Time 10:00 Visit Stop Time 10:25 Total Visit Minutes 25 Number of ENGLISH PROFESSOR Visits 2 Physical Therapy Visit Comments Patient Comments Pt states he still feels unsteady with walking. Therapy Pain Assessment Pain Present Pain Present Denied Pain M4 PT-IP Mobility and Gait Start: 12/03/17 17:36 Freq: NEEDED Status: Active Protocol: Document 12/06/17 10:25 GGD (Rec: 12/06/17 10:59 GGD [id number]) PT-Bed Mobility Assessment Rolling Type of Rolling Log Rolling Level of Assist Contact Guard Assistance Supine to Sit Supine to Sit Contact Guard Assistance Scooting Scooting to Edge of Bed Standby Assistance PT-Transfer Assessment Sit to and From Stand Sit to and from Stand Contact Guard Assistance Equipment Transfer Assistive Device Gait Belt Straight Cane Transfers Transfer Destination Bed Transfer Ability Level of Assist Contact Guard Assistance Gait Assessment Gait Gait Assistance Required: Contact Guard Assist Distance (Feet) (feet) 250 Assistive Devices Assistive Device Gait Belt Front Wheeled Walker Gait Deviations General Gait Pattern Decreased Stride Length Decreased Feet Clearance Flexed Trunk Step-to Gait Comments Gait Comments Pt ambulate with SPC x 5 feet with CGA. Then with FWW with SBA. M5 PT-IP Objective Assessments Start: 12/03/17 17:36 Freq: NEEDED Status: Active Protocol: Document 12/03/17 16:13 MDD (Rec: 12/03/17 17:49 MDD [id number]) Orientation Orientation/Cognition Level of Alertness Alert Orientation Name Birthday Place Situation Language Function Ability No Deficits Noted Safety Awareness Decreased Safety Awareness Comments Pt is somewhat impulsive with movements, requires cues for safety with FWW. Gross Range of Motion Lower Extremity ROM Assessment Within Functional Limits Strength Lower Extremity Strength Assessment Within Functional Limits Sensation Assessment Sensation Gross Sensation WNL M6 PT-IP Treatment Start: 12/03/17 17:36 Freq: NEEDED Status: Active Protocol: Document 12/04/17 12:44 MDD (Rec: 12/04/17 12:49 MDD [id number]) Physical Therapy Treatment Exercises Exercises Seated Knee Flexion/Extension Other Treatments Other Treatment Performed Bed mobility: cues for log roll, min A for supine to sit with HOB flat. Gait training to and from bathroom using FWW (therapist managing IV pole) with CGA, additional gait x 212 feet. Gait pattern much improved with longer stride lengths and better control/ navigation of walker. Requires less cueing for upright posture. Seated therex: seated knee extension, seated marching x 10 each. Standing therex (w/ FWW): hip abduction, hip extension, heel raises x 10 each. M7 PT-IP Assessment and Plan Start: 12/03/17 17:36 Freq: NEEDED Status: Active Protocol: Document 12/06/17 10:25 GGD (Rec: 12/06/17 10:59 GGD [id number]) PT Summary Assessment and Plan Summary Assessment Summary Pt had increase in stability with gait with FWW. He had less fatigue with gait. Frequency of Treatment Frequency Of Treatment Once a Day Treatment Plan Physical Therapy Treatment Plan Bed Mobility Training Transfer Training Gait Training Therapeutic Exercise Discharge Planning Recommendations To Nursing Amount of Assist Needed 1 Person Assist Discharge Recommendations PT Discharge Recommendations SNF Rehab
[2017-12-06 12:00] VITALS: BP 124/72; PULSE 95; RESP 16; TEMP 36.6; O2SAT 99
--- NOTE | 2017-12-06 12:04 | CM.DPC ---
DCP Cont: DC today to [facility]. Lurdes, on behalf of [facility], agreeable to accepting pt today. P/u arranged for this afternoon, 1430. Pt remains aware and agreeable to DCP. Nurse Supervisor, Pamela lujan PASSR and DC order. RN aware of p/u time. PICC being removed today per Dr Ortiz's orders. JW
--- NOTE | 2017-12-06 12:11 | CM.DPC ---
Order and PASRR faxed to [facility] per Cherrie
--- NOTE | 2017-12-06 15:41 | PC.NURSE ---
Pt was discharged from hospital care and transferred to [facility] at approx. 1500. He was escorted out of the hospital via wheelchair by [facility] [facility] with his belongings
== END 2017-12-06 15:00 | DRG 393 ==
LOC: AC 16:43
PROVIDERS: Surgery; Admitting Provider Surgery; PCP Family Medicine; Visit Provider Surgery
DX: K91.89 Other postprocedural complications and disorders of digestive system (principal); E43 Unspecified severe protein-calorie malnutrition; K65.1 Peritoneal abscess; Z68.1 Body mass index [BMI] 19.9 or less, adult; T81.4XXA Infection following a procedure, initial encounter; Y83.6 Removal of other organ (partial) (total) as the cause of abnormal reaction of the patient, or of later complication, without mention of misadventure at the time of the procedure; Z72.89 Other problems related to lifestyle; B96.20 Unspecified Escherichia coli [E. coli] as the cause of diseases classified elsewhere; F17.210 Nicotine dependence, cigarettes, uncomplicated; B19.20 Unspecified viral hepatitis C without hepatic coma; J44.9 Chronic obstructive pulmonary disease, unspecified; E87.8 Other disorders of electrolyte and fluid balance, not elsewhere classified; E87.6 Hypokalemia; R07.9 Chest pain, unspecified; R00.0 Tachycardia, unspecified
CPT/HCPCS: 36415; 36569; 71046; 78226; 80048; 80053; 81001; 82550; 82553; 82962; 83690; 83735; 84100; 84134; 84145; 84484; 85025; 85610; 86850; 86900; 86901; 87070; 87075; 87077; 87186; 87205; 93005; 93010; 94760; 97110; 97116; 97161; 97530; 99406; A9537; C9113; J1450; J1956; J2060; J2543; J3475; J3480

== ENCOUNTER → 2017-12-10 08:22 | Outpatient (REF) | payer SELFPAY ==
[2017-11-26 17:26] VITALS: BMI 19.7
[2017-12-10 09:24] LABS: Add Manual Diff / Slide Review NO; Basophils Percent Auto 0.3 % (0-2); Hematocrit 27.2 % (41-53); Hemoglobin 8.6 g/dL (13.5-17.5); Lymphocytes Percent Auto 32.4 % (25-40); Mean Corpuscular HGB Conc 31.4 % (30-36); Mean Corpuscular Hemoglobin 25.4 PG (26-34); Mean Corpuscular Volume 80.7 fL (80-100); Monocytes Percent Auto 10.9 % (3-14); Neutrophils Absolute Auto 3000 /uL (3000-5900); Neutrophils Percent Auto 54.4 % (50-75); Platelet Count 451 X10^3/uL (150-400); Red Blood Cell Count 3.38 X10^6/uL (4.5-5.9); White Blood Cell Count 5.5 X10^3/uL (4.5-11.0)
[2017-12-10 09:41] LABS: Anisocytosis 2+; Platelet Estimate Increased on smear
[2017-12-10 10:17] LABS: Alanine Aminotransferase 29 IU/L (21-72); Albumin 2.7 g/dL (3.5-5.0); Albumin Globulin Ratio 0.8 (1.0-2.8); Alkaline Phosphatase 137 U/L (38-126); Aspartate Aminotransferase 53 IU/L (17-59); Bilirubin Total 0.6 mg/dL (0.2-1.3); Blood Urea Nitrogen 6 mg/dL (9-20); Calcium 8.1 mg/dL (8.4-10.2); Carbon Dioxide 26 mmol/L (22-32); Chloride 104 mmol/L (98-107); Estimated Glomerular Filt Rate > 60.0 mL/min (>60); Globulin 3.5 g/dL (1.7-4.1); Glucose 84 mg/dL (80-110); HEMOLYSIS < 15 (0-50); Potassium 4.2 mmol/L (3.4-5.1); Sodium 136 mmol/L (137-145); Total Protein 6.2 g/dL (6.3-8.2)
== END ==
LOC: LAB 08:22
PROVIDERS: PCP Family Medicine; Visit Provider Internal Medicine
DX: Z00.00 Encounter for general adult medical examination without abnormal findings (principal); D64.9 Anemia, unspecified
CPT/HCPCS: 36415; 80053; 85025

== ENCOUNTER → 2017-12-12 09:45 | Outpatient (REF) | payer SELFPAY ==
[2017-11-26 17:26] VITALS: BMI 19.7
[2017-12-12 10:35] LABS: Hematocrit 26.2 % (41-53); Hemoglobin 8.2 g/dL (13.5-17.5); Mean Corpuscular HGB Conc 31.3 % (30-36); Mean Corpuscular Hemoglobin 25.3 PG (26-34); Mean Corpuscular Volume 80.9 fL (80-100); Platelet Count 434 X10^3/uL (150-400); Red Blood Cell Count 3.24 X10^6/uL (4.5-5.9); Red Cell Distribution Width 20.4 % (11.6-14.8); White Blood Cell Count 5.3 X10^3/uL (4.5-11.0)
[2017-12-12 11:09] LABS: HEMOLYSIS < 15 (0-50); Iron 42 ug/dL (49-181)
[2017-12-12 11:20] LABS: Percent Iron Saturation 14 % (20-50); Total Iron Binding Capacity 299 ug/dL (261-462); Transferrin 229 mg/dL (206-381)
== END ==
LOC: LAB 09:45
PROVIDERS: PCP Family Medicine; Visit Provider Internal Medicine
DX: D64.9 Anemia, unspecified (principal)
CPT/HCPCS: 36415; 83540; 83550; 85027

== ENCOUNTER → 2017-12-13 09:07 | Outpatient (REF) | payer SELFPAY ==
[2017-11-26 17:26] VITALS: BMI 19.7
[2017-12-13 09:15] LABS: Hematocrit 28.1 % (41-53); Hemoglobin 8.9 g/dL (13.5-17.5)
== END ==
LOC: LAB 09:07
PROVIDERS: PCP Family Medicine; Visit Provider Nurse Practitioner Family
DX: D64.9 Anemia, unspecified (principal)
CPT/HCPCS: 85014; 85018

== ENCOUNTER 2018-02-18 14:52 | Inpatient (IN) | payer MEDICARE, MEDICAID, SELFPAY ==
--- NOTE | 2018-02-18 | DI.ECHO.S_ITS ---
[place] [facility]---------+ [facility] +---------+ : : [address] : : : : [id number] : : : : Phone: [phone]+ Echocardiogram Report + + :Name: JOSIE MARTINO Study Date: 02/19/2018 Height: 71 in : :[facility] Weight: 175 lb : : Gender: Male BSA: 2.0 m2 : :: 1950 Age: 67 yrs BP: 126/73 mmHg: :Reason For Study: Congestive Heart Failure : : Performed By: Sunitha Keller : :Referring: DINESH PUENTES : + + Interpretation Summary The left ventricle is normal in size. The ejection fraction is estimated to be 45-50%. There is borderline global hypokinesis of the left ventricle. There is no significant valvular heart disease. Procedure: A two-dimensional transthoracic echocardiogram with color flow and Doppler was performed. The study quality was technically adequate. There is no prior echocardiogram noted for this patient. The patient had frequent PVCs during the exam. Left Ventricle: The left ventricle is normal in size. There is normal left ventricular wall thickness. The ejection fraction is estimated to be 45-50%. There is borderline global hypokinesis of the left ventricle. Diastolic function could not be accurately assessed due to contradictory data. Right Ventricle: The right ventricle grossly appears normal in size with probable normal systolic function. Atria: The left atrial size is normal. Right atrial size is normal. The interatrial septum is intact with no evidence for an atrial septal defect. Mitral Valve: The mitral valve is normal in structure and function. There is trace mitral regurgitation. Aortic Valve: The aortic valve is trileaflet. The aortic valve opens well. No aortic regurgitation is present. Tricuspid Valve: The tricuspid valve is normal in structure and function. No tricuspid regurgitation. Pulmonic Valve: The pulmonic valve is not well seen, but is grossly normal. There is no pulmonic valvular regurgitation. Great Vessels: The aortic root is mildly dilated. The ascending aorta could not be visualized. The aortic arch is at the upper limits of normal in size. The IVC is dilated (diameter is greater than 2.1 cm) yet it collapses greater than 50% with a sniff. This suggests a right atrial pressure of 8 mm Hg. Pericardium/ Pleura There is no pericardial effusion. There is no pleural effusion. MMode/2D Measurements & Calculations LVIDd: 4.9 cm Ao root diam: 3.9 cm LVIDs: 3.7 cm Aortic Jxn: 2.9 cm FS: 24.5 % Ao Arch Diam (Prox Trans): 3.1 cm IVSd: 0.78 cm LVPWd: 0.76 cm LV gonzalez. diameter/BSA (cm/m^2): 2.4 LV sys. diameter/BSA (cm/m^2): 1.8 LA dimension: 2.8 cm RA long axis: 4.2 cm LA A2 area: 18.3 cm2 RA area: 13.7 cm2 LA A4 area: 18.0 cm2 RA vol: 37.4 ml LA length (vol): 4.8 cm RA : 18.8 ml/m2 LA vol: 58.2 ml IVC diam: 1.9 cm LA vol index: 29.2 ml/m2 Doppler Measurements & Calculations Ao V2 max: 100.2 cm/sec MV E max gennaro: 82.8 cm/sec Ao V2 mean: 65.4 cm/sec MV A max gennaro: 77.6 cm/sec Ao max P.0 mmHg MV E/A: 1.1 Ao mean P.0 mmHg Med Peak E' Gennaro: 5.9 cm/sec Ao V2 VTI: 21.8 cm E/E' med: 14.1 Lat Peak E' Gennaro: 8.6 cm/sec E/E' lat: 9.6 E/e' average: 11.8 MV dec time: 0.25 sec MV P1/2t: 73.0 msec PA V2 max: 65.7 cm/sec MV P1/2t max gennaro: 82.4 cm/sec PA V2 mean: 37.0 cm/sec MVA(P1/2t): 3.0 cm2 PA mean P.72 mmHg PA Accel Time: 0.09 sec Reading Physician:05:32 PM
--- NOTE | 2018-02-18 14:33 | DI.MRI.S_ITS ---
PROCEDURE: MR ABDOMEN WO CON INDICATIONS: bilirubin 3.5, elevated LFT's, history of bile leak TECHNIQUE: Coronal HASTE through the abdomen, axial 2-D FLASH in- and [id number], and breath-hold T2 FSE with fat saturation through the biliary system and pancreas. Oblique coronal and axial thin-slice HASTE, radial thick-slab HASTE centered on the extrahepatic bile ducts. Intravenous secretin: Not requested. COMPARISON: [facility], CR, XR ERC BILIARY DUCT, 01/15/2018, 15:44. [facility], CR, XR ERCP BILIARY AND PANCREATIC, 11/29/2017, 13:28. [facility], NM, NM HIDA NO EJECTION FRACTION, 11/27/2017, 11:58. [facility], US, US ABDOMEN LIMITED, 11/15/2017, 20:49. [facility], CT, CT ABDOMEN PELVIS W CON, 11/15/2017, 18:19. FINDINGS: Image quality: Diagnostic Liver: The liver is normal in size and demonstrates prominent signal dropout on the opposed phase images compared to the in phase images, compatible with diffuse hepatic steatosis. No definitive liver lesions are evident. There is no intrahepatic biliary dilatation. However, the common bile duct is mildly enlarged at 8 mm in diameter. No definitive intraluminal filling defects are identified within the common bile duct. However, on a single axial image there does appear to be a 3 mm filling defect at the level of the ampulla (image 20, series 7), which is not confirmed on the coronal images and may be related to the ampulla itself. There is mild intrahepatic biliary dilatation. The patient has had a prior cholecystectomy. No fluid collections are evident within the gall bladder fossa. However, there is mild upper abdominal ascites. Other solid organs: The pancreas has a normal appearance. The main pancreatic duct measures approximately 2-3 mm in diameter. No significant peripancreatic edema is evident. The spleen, kidneys, and adrenals are unchanged. There continues to be a cyst involving the posterior mid right kidney, is unchanged. Nodes and vessels: No retroperitoneal or mesenteric adenopathy by size criteria. Aorta and inferior vena cava are normal in size. Bowel and peritoneum: Mild to moderate ascites is evident within the right upper quadrant and also within the pelvis. No loculated fluid collections are evident. The imaged bowel loops are nondilated. Lung bases: No basal pleural effusions. Heart size is normal. Bones and soft tissues: No ventral hernias. Bone marrow is of normal overall signal. IMPRESSION: 1. Intrahepatic and extrahepatic biliary dilatation may be related to narrowing of the common bile duct at the level of the ampulla. On one image there appears to be a 3 mm intraluminal filling defect within the common bile duct at the level of the ampulla. However, this may be related to ampullary hypertrophy and volume averaging. 2. Prominent hepatic steatosis. 3. Mild to moderate abdominal/pelvic ascites is likely reactive to patient's recent surgery. Dictated by: Raul Edwards M.D. on 02/18/2018 at 15:23 Approved by: Raul Edwards M.D. on 02/18/2018 at 15:37
[2018-02-18 15:25] LABS: Alanine Aminotransferase 27 IU/L (21-72); Albumin 3.3 g/dL (3.5-5.0); Albumin Globulin Ratio 0.9 (1.0-2.8); Alkaline Phosphatase 237 U/L (38-126); Aspartate Aminotransferase 146 IU/L (17-59); BUN Creatinine Ratio 8.6 (6-22); Bilirubin Total 5.7 mg/dL (0.2-1.3); Blood Urea Nitrogen 6 mg/dL (9-20); Calcium 8.4 mg/dL (8.4-10.2); Carbon Dioxide 31 mmol/L (22-32); Chloride 97 mmol/L (98-107); Estimated Glomerular Filt Rate > 60.0 mL/min (>60); Globulin 3.8 g/dL (1.7-4.1); Glucose 119 mg/dL (80-110); HEMOLYSIS < 15 (0-50); Magnesium 1.4 mg/dL (1.6-2.3); Phosphorous 3.5 mg/dL (2.3-3.7); Potassium 3.8 mmol/L (3.4-5.1); Sodium 144 mmol/L (137-145); Total Protein 7.1 g/dL (6.3-8.2)
[2018-02-18 15:30] LABS: INR 1.2 (0.9-1.3); Prothrombin Time 12.8 SECONDS (10.1-12.7)
[2018-02-18 15:33] LABS: PTT Partial Thromboplastin Tim 27 SECONDS (26.4-36.2)
[2018-02-18 15:42] LABS: Hematocrit 28.4 % (41-53); Hemoglobin 8.9 g/dL (13.5-17.5); Mean Corpuscular HGB Conc 31.3 % (30-36); Mean Corpuscular Hemoglobin 26.6 PG (26-34); Platelet Count 317 X10^3/uL (150-400); Red Blood Cell Count 3.35 X10^6/uL (4.5-5.9); Red Cell Distribution Width 22.6 % (11.6-14.8)
[2018-02-18 15:54] LABS: Neutrophils Absolute Manual 6080 /uL (3000-5900); Total Cells Counted 100
[2018-02-18 15:56] LABS: Anisocytosis 3+; Hypochromasia 2+; Polychromasia 1+
[2018-02-18 15:58] LABS: Appearance Urine UA SL CLOUDY; Bilirubin Urine UA 3+ (NEGATIVE); Glucose Urine UA TRACE g/dL (Normal); Ketones Urine UA 1+ (NEGATIVE); Leukocyte Esterase Urine UA TRACE (NEGATIVE); Nitrite Urine UA POSITIVE (Negative); Occult Blood Urine UA TRACE-LYSED (Negative); Protein Urine UA 2+ (Negative); Urobilinogen Urine UA >=8.0 E.U./dL (0.2); pH Urine UA 6.5 (4.5-8.0)
[2018-02-18 16:00] LABS: Color Urine UA OTHER
[2018-02-18 16:00] LABS: Stomatocytes 1+
[2018-02-18 16:08] LABS: Ictotest Urine Positive (Negative)
[2018-02-18 16:11] LABS: RBC Urine 0-1/HPF (0-5/HPF); Squamous Epithelial Cell Urine 0-1 /HPF; WBC Urine 5-10/HPF (0-5/HPF)
[2018-02-18 16:12] LABS: Amorphous Sediment Urine 1+; Bacteria Urine Occasional (0-1); Culture Indicated Urine Specimen Cultured; Granular Casts Urine 5-10/LPF; Hyaline Casts Urine 30-100/LPF; Mucus Urine 3+ (Negative)
[2018-02-18 16:30] VITALS: BP 128/89; PULSE 91; RESP 20; TEMP 36.7; O2SAT 99
--- NOTE | 2018-02-18 16:40 | PC.NURSE ---
Patient brought over from MRI to be direct admit. Alert and oriented with pleasant affect. Able to walk from wheelchair to bed with cane and standby assist. IV placed per protocol. Patient oriented to room and katiuska light. 1630 - Patient transferred to room 228. Report given to receiving TROY Ashley. All belongings sent with patient.
--- NOTE | 2018-02-18 18:11 | PM.PN.1 ---
Subjective Date Patient Seen: 02/18/18 Time Patient Seen: 18:11 Interval history: This is a consult note. I was consulted by Dr. Ortiz for evaluation management of patient's elevated LFTs, and UTI. 67-year-old male with past medical history of acute cholecystitis status post cholecystectomy complicated by leaking duct that subsequently required stenting and later removal of the stent and drain presented to Dr. Ortiz is [facility] with multiple symptoms. Patient stated that for the past couple months, ever since the removal of the drains, he has had increasing pain in the right upper quadrant, that is nagging, 5/10 severity, intermittent. He has also been experiencing nausea that is pretty much constant for the past 2 months, and frequent regurgitation of food (although he states it is not vomiting). Because of this, patient has not been able to eat much especially solid foods. His fluids have also been decreased because patient has hard time keeping them down. Patient's bowel movements are very soft, frequent, brown, and loose, however he denies it to be diarrhea in volume is amount. He denies any fevers or chills. Denies any chest pain. He has chronic shortness of breath with walking more than half a block, which he associates it with smoking. He has chronic cough with occasional white mucus production. He has been also feeling dizzy and experiencing blurry vision on occasion. Patient has also noted bilateral lower extremity swelling that has increased significantly in the past couple of weeks. Denies any loss of consciousness. H he has had frequent urination for the past couple of years with small amount of urine produced at a time, however over the past couple weeks he has noted his urine to be extremely dark. Denies sharmila hematuria or dysuria. Of note, patient has been seen GI specialist, with the most recent visit 2 weeks ago, during which time he was told that his hepatitis C needs to be treated soon. Past medical history: Acute cholecystitis as above Hepatitis C, diagnosed 8 months ago, untreated Medications: Denies taking any Allergies: Denies any Family history: Patient's immediate family in a car wreck when patient was 10 years old Social history: Patient is a chronic tobacco and marijuana user Patient states he quit alcohol use 2 months ago No other drug use. 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 Patient received blood transfusions when he was 3 years old Patient is unsure if any of his previous sexual partners had hepatitis C or HIV At the clinic, patient's lab work was repeated, which revealed CBC 8.0, hemoglobin 8.9, hematocrit 28, platelets 317, sodium 144, potassium 3.8, chloride 97, bicarb 31, BUN 6, creatinine 0.7, glucose 119. PT was elevated at 12.8. INR was normal at 1.2. Magnesium was slightly low 1.4. T bili was high at 5.7 (it was 3.5 on prior lab draw few weeks ago). AST is mildly elevated at 146, alkaline phosphatase mildly elevated at 237, normal ALT at 27. BNP was elevated at 251, and albumin was 3.3. Urinalysis was performed which showed 2+ protein, 1+ ketones, 3+ urine bilirubin, trace leukocyte esterase, 5-10 WBCs, occasional bacteria, 3+ mucus, and positive nitrites. MRCP performed which showed 8 mm dilated common bile duct which, as per surgery, is normal finding after stenting. Patient was admitted for further workup. Exam Narrative Exam Narrative: General: No acute distress, AAO x3 HEENT: Mild scleral icterus bilaterally, PERRLA bilaterally Neck: Supple, no LAD or JVD CV: Regular rate rhythm, no murmurs or gallops Respiratory: Clear to auscultation bilaterally, good aeration in all lung meyer GI: Mild tenderness to palpation in the right upper quadrant region. Slightly distended abdomen, however is soft. Positive bowel sounds in all 4 quadrants Musculoskeletal: Moves all extremities Skin: Jaundice present Extremities: 2+ pitting edema in lower extremities bilaterally, up to knees Neuro: No focal deficits -psych: Mood is appropriate, patient is able to make all decisions Objective Labs Result Diagrams: 02/18/18 14:42 02/18/18 14:42 Labs: Laboratory Results - last 24 hr 02/18/18 02/18/18 02/18/18 14:33 14:42 14:42 WBC 8.0 RBC 3.35 L Hgb 8.9 L Hct 28.4 L MCV 85.0 MCH 26.6 MCHC 31.3 RDW 22.6 H Plt Count 317 Total Counted 100 Seg Neutrophils % 74.0 H Band Neutrophils % 2.0 L Lymphocytes % (Manual) 9.0 L Monocytes % (Manual) 15.0 H Neutrophils # (Manual) 6080 H RBC Morphology See below Polychromasia 1+ H Hypochromasia 2+ H Anisocytosis 3+ H Stomatocytes 1+ H PT 12.8 H INR 1.2 APTT 27 D Sodium Potassium Chloride Carbon Dioxide BUN Creatinine Estimated GFR BUN/Creatinine Ratio Glucose Calcium Phosphorus Magnesium Total Bilirubin AST ALT Alkaline Phosphatase B-Natriuretic Peptide 251.0 H Total Protein Albumin Globulin Albumin/Globulin Ratio Urine Color Other Urine Appearance Sl cloudy Urine pH 6.5 Ur Specific [place] 1.020 Urine Protein 2+ H Urine Glucose (UA) Trace Urine Ketones 1+ H Urine Occult Blood Trace-lysed Urine Nitrate Positive Urine Bilirubin 3+ H Urine Ictotest Positive H Urine Urobilinogen >=8.0 Ur Leukocyte Esterase Trace H Urine RBC 0-1/hpf Urine WBC 5-10/hpf H Ur Squamous Epith Cells 0-1 /hpf Amorphous Sediment 1+ Urine Bacteria Occasional (0-1) Hyaline Casts 30-100/lpf Granular Casts 5-10/lpf Urine Mucus 3+ H Ur Culture Indicated? Specimen cultured Micro UA Comment Not Reportable Blood Type Antibody Screen 02/18/18 02/18/18 14:42 14:42 WBC RBC Hgb Hct MCV MCH MCHC RDW Plt Count Total Counted Seg Neutrophils % Band Neutrophils % Lymphocytes % (Manual) Monocytes % (Manual) Neutrophils # (Manual) RBC Morphology Polychromasia Hypochromasia Anisocytosis Stomatocytes PT INR APTT Sodium 144 Potassium 3.8 Chloride 97 L Carbon Dioxide 31 BUN 6 L Creatinine 0.70 Estimated GFR > 60.0 BUN/Creatinine Ratio 8.6 Glucose 119 H Calcium 8.4 Phosphorus 3.5 Magnesium 1.4 L Total Bilirubin 5.7 H AST 146 H ALT 27 Alkaline Phosphatase 237 H B-Natriuretic Peptide Total Protein 7.1 Albumin 3.3 L Globulin 3.8 Albumin/Globulin Ratio 0.9 L Urine Color Urine Appearance Urine pH Ur Specific [place] Urine Protein Urine Glucose (UA) Urine Ketones Urine Occult Blood Urine Nitrate Urine Bilirubin Urine Ictotest Urine Urobilinogen Ur Leukocyte Esterase Urine RBC Urine WBC Ur Squamous Epith Cells Amorphous Sediment Urine Bacteria Hyaline Casts Granular Casts Urine Mucus Ur Culture Indicated? Micro UA Comment Blood Type A Positive Antibody Screen Negative Assessment & Plan Plan: Assessment/Plan Narrative: 1. Elevated liver enzyme tests -suspect due to untreated hepatitis C, however will need to rule out other acute causes -T bili 5.7, AST 146, ALT 27, alk-phos 237, albumin 3.3, INR 1.2 -patient's hepatitis C viral RNA in October 2017 was 2,880,000 -will repeat acute hepatitis panel as well HCV viral load, and HIV testing -will also get ETOH levels as well as GGT, and acetaminophen levels -given elevated BNP at 2:51 a.m. and patient's lower extremity edema, will get echo to rule out congestive hepatopathy 2. UTI - As shown on urinalysis -urine cultures are pending -agree with levofloxacin 750 mg daily 3. Severe protein calorie malnutrition -likely due to decreased p.o. intake from right upper quadrant pain -recommend compliance program manager consult to optimize nutrition (patient is on clear liquid diet at this time, may benefit from Ensure Clear) 60 min spent evaluating and providing care for patient
[2018-02-18] MEDS: levoFLOXacin 750 MG/150 ML PIGGYBACK 100 MG IV (18:37)
[2018-02-18] MEDS: ONDANSETRON 4 MG/2 ML INJ IV (18:37)
[2018-02-18] MEDS: SODIUM CHLORIDE 0.45% 1,000 ML 65 ML IV (18:37)
[2018-02-18] MEDS: IBUPROFEN 600 MG TABLET PO (18:38)
[2018-02-18] MEDS: OXYCODONE IR 5 MG TABLET PO (18:39)
[2018-02-18 19:45] VITALS: BP 113/68; PULSE 92; RESP 18; TEMP 36.8; O2SAT 97; BMI 19.4
[2018-02-18 19:49] LABS: Acetaminophen < 10 ug/mL (10-30); Ethanol (ETOH) < 10 mg/dL; Gamma Glutamyl Transpeptidase 814 U/L (15-73)
[2018-02-18] MEDS: DOCUSATE 100 MG CAPSULE PO (20:30)
--- NOTE | 2018-02-18 22:11 | PC.NURSE ---
Addendum entered by Gabi Hansen R.N. 02/18/18 22:40: Pt new orders for clears diet, 1/2 NS @ 65 with ABO, Levo. Proveded pt with popcicles, applesauce, ice chips, declined all else. 1839- C/O nausea, and pain 5/10, medicated with zofran 4mg IVP, percolone 5mg PO and Ibuprofen 600mg PO. Pt sitting in 90 degree, holding arms above head to swallow pills, then burped and said they went down. States this is how i have to take pills. Reports comfortable, call light in reach and bed alarm on. Original Note: 1644- Pt arrived to room 228 from ED via bed. A/O x3, 99% RA, LS clear,denies SOB. Mild jaundice appearing skin, to face, BLE skin pale with 2+ pitting edema. Pt reports they look much better than 2 days ago, they were three times the size. NPO until further orders. RFA SL. Uses cane, reports hips and legs are weak, and doesn't want to take a header, so I use a cane. Pt denies nausea at this time, but reports he hasn't eaten anything for 2mos, he can't keep anything down. Recently here for lap sultana, visable healing scar from lap sites, and site that had ULPE tube is sticking out slightly, with erythemia 20cm surrounding site.
[2018-02-19] VITALS (14 sets, daily range): BP systolic 101–149; BP diastolic 63–87; PULSE 70–87; RESP 14–18; TEMP 36.6–36.8; O2SAT 94–98
[2018-02-19 05:55] LABS: Alanine Aminotransferase 25 IU/L (21-72); Albumin 2.2 g/dL (3.5-5.0); Albumin Globulin Ratio 0.7 (1.0-2.8); Alkaline Phosphatase 148 U/L (38-126); Aspartate Aminotransferase 96 IU/L (17-59); BUN Creatinine Ratio 8.6 (6-22); Basophils Percent Auto 0.3 % (0-2); Bilirubin Total 3.4 mg/dL (0.2-1.3); Blood Urea Nitrogen 6 mg/dL (9-20); Carbon Dioxide 37 mmol/L (22-32); Chloride 97 mmol/L (98-107); Estimated Glomerular Filt Rate > 60.0 mL/min (>60); Glucose 91 mg/dL (80-110); HEMOLYSIS < 15 (0-50); Lymphocytes Percent Auto 39.6 % (25-40); Mean Corpuscular HGB Conc 31.6 % (30-36); Mean Corpuscular Hemoglobin 26.8 PG (26-34); Mean Corpuscular Volume 84.7 fL (80-100); Monocytes Percent Auto 10.9 % (3-14); Neutrophils Absolute Auto 1700 /uL (3000-5900); Neutrophils Percent Auto 48.2 % (50-75); Platelet Count 221 X10^3/uL (150-400); Potassium 3.1 mmol/L (3.4-5.1); Red Blood Cell Count 2.52 X10^6/uL (4.5-5.9); Red Cell Distribution Width 21.9 % (11.6-14.8); Sodium 139 mmol/L (137-145); Total Protein 5.2 g/dL (6.3-8.2); White Blood Cell Count 3.5 X10^3/uL (4.5-11.0)
[2018-02-19] MEDS: PANTOPRAZOLE 20 MG TABLET PO (06:01)
[2018-02-19 06:05] LABS: Calcium 7.3 mg/dL (8.4-10.2)
[2018-02-19 06:09] LABS: Hematocrit 21.3 % (41-53)
[2018-02-19 06:10] LABS: Add Manual Diff / Slide Review SLIDE REVIEW
[2018-02-19 06:16] LABS: Hemoglobin 6.7 g/dL (13.5-17.5)
[2018-02-19 06:24] LABS: Anisocytosis 2+; Hypochromasia 2+; Polychromasia 1+; Stomatocytes 2+
--- NOTE | 2018-02-19 06:49 | PC.NURSE ---
NOC NOTE: pt has denies pain and nausea all shift, he has been NPO as ordered. Received critical lab, hgb of 6.7, called answering service x2 @0620 and 0666. No return call at this time.
--- NOTE | 2018-02-19 10:30 | PC.NURSE ---
Addendum entered by Radha Alcala R.N. 02/19/18 14:56: Spoke with Dr Ortiz about urine out put of 100 for day shift and 150 out for nights, he wanted to continue with the IV fluids and blood to see if dehydration is the cause. Bladder scanner showed <100. Original Note: Addendum entered by Radha Alcala R.N. 02/19/18 14:19: Dr Gil ordered 2nd IV insertion to run NS with 80meq of K while also infusing blood. NS w/ 80meq of K going at 50ml/hr while blood is infusing, to be increased to 130ml/hr once blood is infused. Original Note: Addendum entered by Radha Alcala R.N. 02/19/18 11:52: Dr Gil questioned Hgb result and ordered a stat CBC with Hgb result of 7.6. Paged Dr Ortiz, received a return phone call and updated him on new results. He requested that we go ahead with the 2 units as he previous ordered. Original Note: Paged Dr Ortiz due to critical Hgb value of 6.7, received return phone call, advised him of the value and he ordered 2 units of PRBC.
--- NOTE | 2018-02-19 10:39 | PM.PN.1 ---
Subjective Date Patient Seen: 02/19/18 Time Patient Seen: 10:46 Interval history: FOLLOW UP ON ELEVATED LFTS, UTI, AND NOW NEWLY DEVELOPED ANEMIA Patient seen at bedside. He states his weakness is improving some what. No overnight events. He was able to tolerate CLD. Denies any melanic stools today but states he occasionally gets black stools. No urinary bleeding. No vomiting blood. Patient's Hb dropped this morning to 6.7 Exam Vital Signs (past 8 hours): - 02/19/18 04:55 02/19/18 07:51 02/19/18 09:24 Temperature 97.9 F 97.8 F Pulse Rate 87 81 Respiratory Rate 16 14 Blood Pressure 127/70 121/63 Pulse Oximetry 95 97 97 Oxygen Delivery Method Room Air Narrative Exam Narrative: General: No acute distress, AAO x3 HEENT: Mild scleral icterus bilaterally, PERRLA bilaterally Neck: Supple, no LAD or JVD CV: Regular rate rhythm, no murmurs or gallops Respiratory: Clear to auscultation bilaterally, good aeration in all lung meyer GI: Mild tenderness to palpation in the right upper quadrant region. Slightly distended abdomen, however is soft. Positive bowel sounds in all 4 quadrants Musculoskeletal: Moves all extremities Skin: Jaundice present Extremities: 2+ pitting edema in lower extremities bilaterally, up to knees Neuro: No focal deficits psych: Mood is appropriate, patient is able to make all decisions Objective Labs Result Diagrams: 02/19/18 05:14 02/19/18 05:14 Labs: Laboratory Results - last 24 hr 02/18/18 02/18/18 02/18/18 14:33 14:42 14:42 WBC 8.0 RBC 3.35 L Hgb 8.9 L Hct 28.4 L MCV 85.0 MCH 26.6 MCHC 31.3 RDW 22.6 H Plt Count 317 Neut % (Auto) Lymph % (Auto) [place] % (Auto) Eos % (Auto) Baso % (Auto) Neut # (Auto) Total Counted 100 Seg Neutrophils % 74.0 H Band Neutrophils % 2.0 L Lymphocytes % (Manual) 9.0 L Monocytes % (Manual) 15.0 H Neutrophils # (Manual) 6080 H RBC Morphology See below Polychromasia 1+ H Hypochromasia 2+ H Anisocytosis 3+ H Stomatocytes 1+ H PT 12.8 H INR 1.2 APTT 27 D Sodium Potassium Chloride Carbon Dioxide BUN Creatinine Estimated GFR BUN/Creatinine Ratio Glucose Calcium Phosphorus Magnesium Total Bilirubin GGT AST ALT Alkaline Phosphatase B-Natriuretic Peptide 251.0 H Total Protein Albumin Globulin Albumin/Globulin Ratio Urine Color Other Urine Appearance Sl cloudy Urine pH 6.5 Ur Specific [place] 1.020 Urine Protein 2+ H Urine Glucose (UA) Trace Urine Ketones 1+ H Urine Occult Blood Trace-lysed Urine Nitrate Positive Urine Bilirubin 3+ H Urine Ictotest Positive H Urine Urobilinogen >=8.0 Ur Leukocyte Esterase Trace H Urine RBC 0-1/hpf Urine WBC 5-10/hpf H Ur Squamous Epith Cells 0-1 /hpf Amorphous Sediment 1+ Urine Bacteria Occasional (0-1) Hyaline Casts 30-100/lpf Granular Casts 5-10/lpf Urine Mucus 3+ H Ur Culture Indicated? Specimen cultured Micro UA Comment Not Reportable Acetaminophen Ethyl Alcohol Blood Type Antibody Screen Crossmatch 02/18/18 02/18/18 02/18/18 14:42 14:42 Unknown WBC RBC Hgb Hct MCV MCH MCHC RDW Plt Count Neut % (Auto) Lymph % (Auto) [place] % (Auto) Eos % (Auto) Baso % (Auto) Neut # (Auto) Total Counted Seg Neutrophils % Band Neutrophils % Lymphocytes % (Manual) Monocytes % (Manual) Neutrophils # (Manual) RBC Morphology Polychromasia Hypochromasia Anisocytosis Stomatocytes PT INR APTT Sodium 144 Potassium 3.8 Chloride 97 L Carbon Dioxide 31 BUN 6 L Creatinine 0.70 Estimated GFR > 60.0 BUN/Creatinine Ratio 8.6 Glucose 119 H Calcium 8.4 Phosphorus 3.5 Magnesium 1.4 L Total Bilirubin 5.7 H GGT 814 H AST 146 H ALT 27 Alkaline Phosphatase 237 H B-Natriuretic Peptide Total Protein 7.1 Albumin 3.3 L Globulin 3.8 Albumin/Globulin Ratio 0.9 L Urine Color Urine Appearance Urine pH Ur Specific [place] Urine Protein Urine Glucose (UA) Urine Ketones Urine Occult Blood Urine Nitrate Urine Bilirubin Urine Ictotest Urine Urobilinogen Ur Leukocyte Esterase Urine RBC Urine WBC Ur Squamous Epith Cells Amorphous Sediment Urine Bacteria Hyaline Casts Granular Casts Urine Mucus Ur Culture Indicated? Micro UA Comment Acetaminophen < 10 L Ethyl Alcohol < 10 Blood Type A Positive Antibody Screen Negative Crossmatch See Detail 10/23/18 10/23/18 05:14 05:14 WBC 3.5 L D RBC 2.52 L Hgb 6.7 L* Hct 21.3 L MCV 84.7 MCH 26.8 MCHC 31.6 RDW 21.9 H Plt Count 221 Neut % (Auto) 48.2 L Lymph % (Auto) 39.6 [place] % (Auto) 10.9 Eos % (Auto) 1.0 L Baso % (Auto) 0.3 Neut # (Auto) 1700 L Total Counted Seg Neutrophils % Band Neutrophils % Lymphocytes % (Manual) Monocytes % (Manual) Neutrophils # (Manual) RBC Morphology See below Polychromasia 1+ H Hypochromasia 2+ H Anisocytosis 2+ H Stomatocytes 2+ H PT INR APTT Sodium 139 Potassium 3.1 L Chloride 97 L Carbon Dioxide 37 H BUN 6 L Creatinine 0.70 Estimated GFR > 60.0 BUN/Creatinine Ratio 8.6 Glucose 91 Calcium 7.3 L Phosphorus Magnesium Total Bilirubin 3.4 H GGT AST 96 H ALT 25 Alkaline Phosphatase 148 H B-Natriuretic Peptide Total Protein 5.2 L Albumin 2.2 L Globulin 3.0 Albumin/Globulin Ratio 0.7 L Urine Color Urine Appearance Urine pH Ur Specific [place] Urine Protein Urine Glucose (UA) Urine Ketones Urine Occult Blood Urine Nitrate Urine Bilirubin Urine Ictotest Urine Urobilinogen Ur Leukocyte Esterase Urine RBC Urine WBC Ur Squamous Epith Cells Amorphous Sediment Urine Bacteria Hyaline Casts Granular Casts Urine Mucus Ur Culture Indicated? Micro UA Comment Acetaminophen Ethyl Alcohol Blood Type Antibody Screen Crossmatch Assessment & Plan Plan: Assessment/Plan Narrative: 2. Acute anemia - Unsure of the source at this time - May be lab error...would recommend repeating CBC - Patient did mention melanic stools in the past, would get FOBT - If Hb is really <7 on repeat, recommend transfusing 2U PRBC - [place] H/H 2. Elevated liver enzyme tests -suspect due to untreated hepatitis C, however will need to rule out other acute causes -Lfts improving this morning: AST 96, ALT 25, AP 148, T bili 3.4 -GGT is elevated at 814, suggesting possible alcoholic liver disease. ETOH negative -patient's hepatitis C viral RNA in October 2017 was 2,880,000...pending repeat of Hep Panel and viral load -echo is pending to rule out congestive hepatopathy 3. UTI - As shown on urinalysis -urine cultures are pending -agree with levofloxacin 750 mg daily Pending surgical decision on further MRCP findings management. 3. Severe protein calorie malnutrition -likely due to decreased p.o. intake from right upper quadrant pain -recommend disc ruler operator consult to optimize nutrition (patient is on clear liquid diet at this time, may benefit from Ensure Clear) 60 min spent evaluating and providing care for patient Quality VTE Deep Vein Thrombosis/Pulmonary Embolism Present on Admission: No
[2018-02-19] MEDS: SODIUM CHLORIDE 0.45% 1,000 ML 65 ML IV (10:54)
[2018-02-19 11:35] LABS: Add Manual Diff / Slide Review NO; Basophils Percent Auto 0.9 % (0-2); Eosinophils Percent Auto 0.3 % (2-4); Hematocrit 24.2 % (41-53); Hemoglobin 7.6 g/dL (13.5-17.5); Lymphocytes Percent Auto 41.6 % (25-40); Mean Corpuscular HGB Conc 31.4 % (30-36); Mean Corpuscular Hemoglobin 26.9 PG (26-34); Mean Corpuscular Volume 85.6 fL (80-100); Monocytes Percent Auto 7.8 % (3-14); Neutrophils Absolute Auto 1900 /uL (3000-5900); Neutrophils Percent Auto 49.4 % (50-75); Platelet Count 248 X10^3/uL (150-400); Red Blood Cell Count 2.83 X10^6/uL (4.5-5.9); Red Cell Distribution Width 22.2 % (11.6-14.8); White Blood Cell Count 3.8 X10^3/uL (4.5-11.0)
--- NOTE | 2018-02-19 11:38 | CM.DANOTE ---
DCP: Case received, EMR reviewed and met with patient. Introduced self and role. DCP template completed with information currently available. Patient is a 67 year old male who admitted yesterday afternoon to the care of the hospitalist team. PCP: Dr. Sutherland. Payer: confirmed: Medicare/Medicaid. Patient came to hospital with symptoms of upper left quadrant pain. Patient is noted to have increased liver enzymes, and hepatitis C. Patient has been a drinker, but stated that he has quit recently. Patient is also alert and oriented. Has been here before with cholecystis, and had surgery. Patient lives alone on [address]. Stated that he has the support of friends. P: DCP to continue to follow closely, and will offer any resources that patient may need upon discharge. Evelyn Mahmood RN/Electrical Checkout Mechanic
[2018-02-19 12:28] LABS: Hepatitis B Surface Antigen NEGATIVE s/c (NEGATIVE)
[2018-02-19 12:43] LABS: HIV 1 and 2 Antibody NEGATIVE (NEGATIVE)
[2018-02-19] MEDS: POTASSIUM CHLORIDE 80 MEQ in SODIUM CHLORIDE 0.9% 1,000 ML 50 ML IV (14:09)
--- NOTE | 2018-02-19 17:00 | PC.NURSE ---
1630-Pt resting quietly in bed with washcloth over eyes. Informed pt an ECHO exam to begin shortly, 2nd unit of blood infusing to RFA @ 150. VSS, ABD with mild distention, tender and BT+, denies nausea at this time. BLE edema has decreased to trace 1+. PP+. 97% RA, LS sweezing insp/exp throughout lung meyer, denies SOB. SFA NS @ 30 infusing, which will be changed to 65 after blood transfusion complete. NPO status. Call light in reach, bed alarm on.
[2018-02-19] MEDS: ONDANSETRON 4 MG/2 ML INJ IV (18:09)
[2018-02-19] MEDS: levoFLOXacin 750 MG/150 ML PIGGYBACK 100 MG IV (18:09)
[2018-02-19 18:12] LABS: Hematocrit 35.3 % (41-53); Hemoglobin 11.3 g/dL (13.5-17.5)
[2018-02-19] MEDS: OXYCODONE IR 5 MG TABLET PO (19:07)
--- NOTE | 2018-02-19 19:37 | PM.PN.1 ---
Subjective Date Patient Seen: 02/19/18 Time Patient Seen: 19:37 Interval history: Patient still feels weak and debilitated but denies any subjective fever or chills. No nausea. Continues to have intermittent small amount of non bilious emesis. No hematemesis. Denies melena today. Passing flatus. No dysuria hematuria although the urine remains quite dark. No chest pain or shortness of breath. No significant abdominal pain. Exam Vital Signs (past 8 hours): - 02/19/18 12:08 02/19/18 12:29 02/19/18 14:32 Temperature 98.1 F 98.1 F 98 F Pulse Rate 76 82 79 Respiratory Rate 18 18 Blood Pressure 113/65 101/65 130/85 Pulse Oximetry 02/19/18 14:34 02/19/18 14:55 02/19/18 17:20 Temperature 98 F 98 F 98.1 F Pulse Rate 79 70 82 Respiratory Rate 18 Blood Pressure 130/85 126/73 149/87 H Pulse Oximetry 02/19/18 17:32 Temperature 98.1 F Pulse Rate 79 Respiratory Rate 18 Blood Pressure 149/87 H Pulse Oximetry 97 Oxygen Delivery Method Room Air Narrative Exam Narrative: Patient thin malnourished male lying comfortably in bed in no acute distress. Alert oriented x3. He has been mentating well without confusion or other neurologic issues. Sclera remain icteric Chest shows copious coarse rhonchi and expiratory wheezes bilaterally. Abdomen remains distended consistent with ascites. He is nontender however. Surgical scars remain clean and intact. No masses. Extremities show no clubbing or cyanosis. His edema is much improved now that he has been in bed with his feet elevated since last evening. Objective Labs Result Diagrams: 02/19/18 18:00 02/19/18 05:14 Labs: Laboratory Results - last 24 hr 02/18/18 02/18/18 02/19/18 14:42 Unknown 05:14 WBC 3.5 L D RBC 2.52 L Hgb 6.7 L* Hct 21.3 L MCV 84.7 MCH 26.8 MCHC 31.6 RDW 21.9 H Plt Count 221 Neut % (Auto) 48.2 L Lymph % (Auto) 39.6 [place] % (Auto) 10.9 Eos % (Auto) 1.0 L Baso % (Auto) 0.3 Neut # (Auto) 1700 L RBC Morphology See below Polychromasia 1+ H Hypochromasia 2+ H Anisocytosis 2+ H Stomatocytes 2+ H Sodium Potassium Chloride Carbon Dioxide BUN Creatinine Estimated GFR BUN/Creatinine Ratio Glucose Calcium Total Bilirubin GGT 814 H AST ALT Alkaline Phosphatase Total Protein Albumin Globulin Albumin/Globulin Ratio Acetaminophen < 10 L Ethyl Alcohol < 10 Hep Bs Antigen HIV 1&2 Antibody Blood Type A Positive Antibody Screen Negative Crossmatch See Detail 02/19/18 02/19/18 02/19/18 05:14 11:15 11:15 WBC RBC Hgb Hct MCV MCH MCHC RDW Plt Count Neut % (Auto) Lymph % (Auto) [place] % (Auto) Eos % (Auto) Baso % (Auto) Neut # (Auto) RBC Morphology Polychromasia Hypochromasia Anisocytosis Stomatocytes Sodium 139 Potassium 3.1 L Chloride 97 L Carbon Dioxide 37 H BUN 6 L Creatinine 0.70 Estimated GFR > 60.0 BUN/Creatinine Ratio 8.6 Glucose 91 Calcium 7.3 L Total Bilirubin 3.4 H GGT Cancelled AST 96 H ALT 25 Alkaline Phosphatase 148 H Total Protein 5.2 L Albumin 2.2 L Globulin 3.0 Albumin/Globulin Ratio 0.7 L Acetaminophen Cancelled Ethyl Alcohol Cancelled Hep Bs Antigen Negative HIV 1&2 Antibody Negative Blood Type Antibody Screen Crossmatch 02/19/18 02/19/18 11:15 18:00 WBC 3.8 L RBC 2.83 L Hgb 7.6 L 11.3 L Hct 24.2 L 35.3 L MCV 85.6 MCH 26.9 MCHC 31.4 RDW 22.2 H Plt Count 248 Neut % (Auto) 49.4 L Lymph % (Auto) 41.6 H [place] % (Auto) 7.8 Eos % (Auto) 0.3 L Baso % (Auto) 0.9 Neut # (Auto) 1900 L RBC Morphology Polychromasia Hypochromasia Anisocytosis Stomatocytes Sodium Potassium Chloride Carbon Dioxide BUN Creatinine Estimated GFR BUN/Creatinine Ratio Glucose Calcium Total Bilirubin GGT AST ALT Alkaline Phosphatase Total Protein Albumin Globulin Albumin/Globulin Ratio Acetaminophen Ethyl Alcohol Hep Bs Antigen HIV 1&2 Antibody Blood Type Antibody Screen Crossmatch Hemoglobin was measured at 6.7 this morning which would be consistent with volume resuscitation in an already anemic patient complicated by dehydration. He has received 2 units of packed red blood cells throughout the day. Post transfusion hemoglobin is adequate. Renal function remained stable. Liver functions are improving. Hepatitis panel pending. MRCP is as previously documented. Assessment & Plan Plan: Assessment/Plan Narrative: 67-year-old male with elevated liver function tests mostly consistent with intrinsic hepatic insufficiency possibly due to active hepatitis C and/or alcoholic cirrhosis. No evidence of significant bile leak or other biliary pathology. I discussed this case with Dr. Nelson who previously performed his ERCP. He agrees a bile leak is unlikely. He has recommended diagnostic paracentesis. We will order this for tomorrow under ultrasound guidance in the radiology department. If sharmila bile was obtained then he may need to return to the gastroenterology service for repeat ERCP. If it appears to be consistent with serous ascites then a HIDA scan may be helpful for functional purposes regarding his ability to excrete isotope into the ducts. HIDA scan may also help if there is a subtle biliary leak, which again would be unlikely if paracentesis does not show sharmila bile. Paracentesis will also allow us to check a cell count, amylase, cytology, and cultures. Will repeat his laboratory studies tomorrow. Continue gentle volume resuscitation. He had been NPO today given his anemia and the possibility that he might require EGD for upper gastrointestinal hemorrhage. He does have a history of a duodenal ulcer seen at the time of his ERCP which may explain melena and anemia. At this time, however, he does not appear to be actively hemorrhaging. Appreciate Internal Medicine evaluation and potential management of his intrinsic liver disease. Awaiting echocardiogram interpretation. In the interim we will continue current care. All the above discussed with the patient in detail. All questions were answered to his satisfaction, and he voiced understanding. Quality VTE Deep Vein Thrombosis/Pulmonary Embolism Present on Admission: No
[2018-02-19] MEDS: DEXTROSE 5%-NS W/KCL 20MEQ 1,000 ML 65 MEQ IV (21:12)
--- NOTE | 2018-02-19 21:35 | PC.NURSE ---
Attempted incentive spirometer treatment, Pt declined treatment. states 'it's only bad when I'm laying down. This writer producer educated Pt on importance of exercising the lungs to prevent fluid build up.
[2018-02-19] MEDS: SODIUM CHLORIDE 0.9% FLUSH 10 ML IV (22:18)
[2018-02-20] VITALS (8 sets, daily range): BP systolic 128–142; BP diastolic 61–99; PULSE 64–84; RESP 16–20; TEMP 36.5–36.9; O2SAT 95–99; BMI 19.4
--- NOTE | 2018-02-20 | DI.NM.S_ITS ---
PROCEDURE: NM HIDA NO EJECTION FRACTION RADIOPHARMACEUTICAL: 4.5 mCi Tc-99m mebrofenin IV. INDICATIONS: Hyperbilirubinemia TECHNIQUE: Following intravenous administration of Tc-99m mebrofenin, sequential anterior abdominal images were obtained through at least 60 minutes. COMPARISON: [facility], [place], [place] HIDA NO EJECTION FRACTION, 11/27/2017, 11:58. [facility], , US ABDOMEN LIMITED, 02/20/2018, 9:35. FINDINGS: There is normal tracer uptake and excretion by the liver. There is normal visualization of intrahepatic ducts, common bile duct, and the gallbladder. The biliary tree has normal caliber. There is normal tracer excretion into duodenum. IMPRESSION: No evidence of biliary obstruction. Dictated by: Minerva Kurtz MD, PhD on 02/20/2018 at 16:21 Approved by: Minerva Kurtz MD, PhD on 02/20/2018 at 16:24
--- NOTE | 2018-02-20 | DI.US.S_ITS ---
PROCEDURE: US ABDOMEN LIMITED INDICATIONS: ascites, elevated LFT's, h/o bile leak TECHNIQUE: Real-time focused scanning was performed of the abdomen, with image documentation. COMPARISON: [facility], [place], MR ABDOMEN WO CON, 02/18/2018, 15:08. FINDINGS: Trace ascites within the right upper and lower quadrants with volume not sufficient for safe paracentesis. IMPRESSION: Trace ascites. Dictated by: Shadi WISE Interpreted: Lorie Alegre MD on 02/20/2018 at 10:03 Approved by: Lorie Alegre M.D. on 02/20/2018 at 12:37
[2018-02-20] MEDS: OXYCODONE IR 5 MG TABLET PO (05:10)
[2018-02-20] MEDS: PANTOPRAZOLE 20 MG TABLET PO (05:10)
--- NOTE | 2018-02-20 05:19 | PC.NURSE ---
[employer] Note: 0030: Resting in bed. Recently medicated for pain. IVs in place in rt forearm and lt forearm. Abdomen distended and firm. Pt denies nausea at this time. 0500: Awake, up to bathroom with sba. Small stool was guiac negative.
[2018-02-20 05:38] LABS: Add Manual Diff / Slide Review NO; Basophils Percent Auto 0.5 % (0-2); Eosinophils Percent Auto 0.4 % (2-4); Hematocrit 36.1 % (41-53); Hemoglobin 11.8 g/dL (13.5-17.5); Lymphocytes Percent Auto 43.8 % (25-40); Mean Corpuscular HGB Conc 32.8 % (30-36); Mean Corpuscular Hemoglobin 27.7 PG (26-34); Mean Corpuscular Volume 84.5 fL (80-100); Monocytes Percent Auto 10.2 % (3-14); Neutrophils Absolute Auto 3400 /uL (3000-5900); Neutrophils Percent Auto 45.1 % (50-75); Platelet Count 266 X10^3/uL (150-400); Red Blood Cell Count 4.27 X10^6/uL (4.5-5.9); Red Cell Distribution Width 19.5 % (11.6-14.8); White Blood Cell Count 7.6 X10^3/uL (4.5-11.0)
[2018-02-20 05:52] LABS: Alanine Aminotransferase 25 IU/L (21-72); Albumin 2.8 g/dL (3.5-5.0); Albumin Globulin Ratio 0.8 (1.0-2.8); Alkaline Phosphatase 185 U/L (38-126); Amylase 46 U/L (30-110); Aspartate Aminotransferase 106 IU/L (17-59); BUN Creatinine Ratio 8.3 (6-22); Blood Urea Nitrogen 5 mg/dL (9-20); Calcium 7.9 mg/dL (8.4-10.2); Carbon Dioxide 33 mmol/L (22-32); Chloride 98 mmol/L (98-107); Estimated Glomerular Filt Rate > 60.0 mL/min (>60); Globulin 3.4 g/dL (1.7-4.1); Glucose 113 mg/dL (80-110); HEMOLYSIS < 15 (0-50); Lipase 93 U/L (23-300); Potassium 3.9 mmol/L (3.4-5.1); Sodium 141 mmol/L (137-145); Total Protein 6.2 g/dL (6.3-8.2)
--- NOTE | 2018-02-20 10:00 | PC.NURSE ---
Patient went down to radiology by wheelchair for paracentesis. Radiologist stated there is not enough fluid in the abdomen to drain so patient sent back up to room and now lying in bed D5W with KCL 20 Meq at 65 ml/hr running IV. Appears relaxed.
[2018-02-20] MEDS: SODIUM CHLORIDE 0.9% FLUSH 10 ML IV ×3 (10:42→21:01)
--- NOTE | 2018-02-20 12:15 | PM.PN.1 ---
Subjective Date Patient Seen: 02/20/18 Time Patient Seen: 12:15 Interval history: Timothy is awake and alert and sitting up in his bed. He reports he is greatly relieved that he is not going to be able to have the fluid drawn off of his abdomen. He says he had they took him to Radiology and the radiologist told him it was not worth it because there was not enough fluid there to bother with. He definitely wants to go home. He says he feels much better than he did when he was admitted. He admits he did not feel well this morning however. He has been NPO last night due to the worry for GI blood loss. He has had no melanotic or dark stools overnight. Hemoglobin is much improved. He tolerated clear liquids this morning without difficulty. No fever. Exam Vital Signs (past 8 hours): - 02/20/18 05:24 02/20/18 07:00 Temperature 97.7 F 97.9 F Pulse Rate 80 71 Respiratory Rate 18 16 Blood Pressure 139/99 H 137/75 Pulse Oximetry 96 97 Oxygen Delivery Method Room Air Narrative Exam Narrative: Lungs are clear bilaterally Heart is regular rate and rhythm Abdomen is soft, less distended than admission. He has active bowel sounds. Incisions are healed. Extremities: 1 to 2+ edema bilaterally. This is much improved over his status at admission per report. Objective Labs Result Diagrams: 02/20/18 05:18 02/20/18 05:18 Labs: Laboratory Results - last 24 hr 02/18/18 02/19/18 02/19/18 14:42 11:15 18:00 WBC RBC Hgb 11.3 L Hct 35.3 L MCV MCH MCHC RDW Plt Count Neut % (Auto) Lymph % (Auto) [place] % (Auto) Eos % (Auto) Baso % (Auto) Neut # (Auto) Sodium Potassium Chloride Carbon Dioxide BUN Creatinine Estimated GFR BUN/Creatinine Ratio Glucose Calcium Total Bilirubin AST ALT Alkaline Phosphatase Ammonia Total Protein Albumin Globulin Albumin/Globulin Ratio Amylase Lipase Hep Bs Antigen Negative HIV 1&2 Antibody Negative Blood Type A Positive Antibody Screen Negative Crossmatch See Detail 02/20/18 02/20/18 02/20/18 05:18 05:18 05:18 WBC 7.6 D RBC 4.27 L Hgb 11.8 L Hct 36.1 L MCV 84.5 MCH 27.7 MCHC 32.8 RDW 19.5 H Plt Count 266 Neut % (Auto) 45.1 L Lymph % (Auto) 43.8 H [place] % (Auto) 10.2 Eos % (Auto) 0.4 L Baso % (Auto) 0.5 Neut # (Auto) 3400 Sodium 141 Potassium 3.9 Chloride 98 Carbon Dioxide 33 H BUN 5 L Creatinine 0.60 L Estimated GFR > 60.0 BUN/Creatinine Ratio 8.3 Glucose 113 H Calcium 7.9 L Total Bilirubin 4.0 H AST 106 H ALT 25 Alkaline Phosphatase 185 H Ammonia 27.0 Total Protein 6.2 L Albumin 2.8 L Globulin 3.4 Albumin/Globulin Ratio 0.8 L Amylase 46 Lipase 93 Hep Bs Antigen HIV 1&2 Antibody Blood Type Antibody Screen Crossmatch Assessment & Plan Plan: Assessment/Plan Narrative: Unable to complete paracentesis due to small volume of fluid. I will order a HIDA scan to be done this afternoon. This should give us information regarding his liver function and his ability to excrete the dye into the biliary radicles. Appreciate Medicine service input and assistance. Quality VTE Deep Vein Thrombosis/Pulmonary Embolism Present on Admission: No
[2018-02-20] MEDS: DEXTROSE 5%-NS W/KCL 20MEQ 1,000 ML 65 MEQ IV (12:58)
[2018-02-20 14:49] LABS: Hepatitis A Ab Total Nonreactive (Nonreactive)
--- NOTE | 2018-02-20 17:25 | PM.PN.1 ---
Subjective Date Patient Seen: 02/20/18 Interval history: Difficult night but patient is feeling better. He was unable to get a Ultrasound guided paracentesis as not enough fluid was present. He still has some drainage from the abdomen Exam Vital Signs (past 8 hours): - 02/20/18 12:00 02/20/18 16:16 Temperature 98.0 F Pulse Rate 77 84 Respiratory Rate 16 20 Blood Pressure 128/83 134/72 Pulse Oximetry 95 95 Oxygen Delivery Method Room Air Narrative Exam Narrative: Ill appearing male in NAD Lungs: clear to auscultation CV: RRR nl Sl S2 ABd: mildly distended, no fluid wave. Ext: no edema Objective Labs Result Diagrams: 02/20/18 05:18 02/20/18 05:18 Labs: Laboratory Results - last 24 hr 02/18/18 02/19/18 02/19/18 14:42 11:15 18:00 WBC RBC Hgb 11.3 L Hct 35.3 L MCV MCH MCHC RDW Plt Count Neut % (Auto) Lymph % (Auto) [place] % (Auto) Eos % (Auto) Baso % (Auto) Neut # (Auto) Sodium Potassium Chloride Carbon Dioxide BUN Creatinine Estimated GFR BUN/Creatinine Ratio Glucose Calcium Total Bilirubin AST ALT Alkaline Phosphatase Ammonia Total Protein Albumin Globulin Albumin/Globulin Ratio Amylase Lipase Hepatitis A Total & IgM Nonreactive Crossmatch See Detail 02/20/18 02/20/18 02/20/18 05:18 05:18 05:18 WBC 7.6 D RBC 4.27 L Hgb 11.8 L Hct 36.1 L MCV 84.5 MCH 27.7 MCHC 32.8 RDW 19.5 H Plt Count 266 Neut % (Auto) 45.1 L Lymph % (Auto) 43.8 H [place] % (Auto) 10.2 Eos % (Auto) 0.4 L Baso % (Auto) 0.5 Neut # (Auto) 3400 Sodium 141 Potassium 3.9 Chloride 98 Carbon Dioxide 33 H BUN 5 L Creatinine 0.60 L Estimated GFR > 60.0 BUN/Creatinine Ratio 8.3 Glucose 113 H Calcium 7.9 L Total Bilirubin 4.0 H AST 106 H ALT 25 Alkaline Phosphatase 185 H Ammonia 27.0 Total Protein 6.2 L Albumin 2.8 L Globulin 3.4 Albumin/Globulin Ratio 0.8 L Amylase 46 Lipase 93 Hepatitis A Total & IgM Crossmatch Assessment & Plan (1) Acute acalculous cholecystitis: Problem details: Hida scan negative. Advance diet per surgery Current visit: No Status: Acute (2) Pancreatitis: Problem details: improving, advance diet Current visit: Yes Status: Acute (3) Hep C w/o coma, chronic: Problem details: Patient needs to start treatment as an outpatient given elevated LFT's Current visit: Yes Status: Acute (4) Elevated LFTs: Problem details: Likely secondary to Hepatitis C Current visit: Yes Status: Acute (5) Severe protein-calorie malnutrition: Problem details: Will continue to encourage oral intake Current visit: Yes Status: Acute Quality VTE Deep Vein Thrombosis/Pulmonary Embolism Present on Admission: No
[2018-02-20] MEDS: levoFLOXacin 750 MG/150 ML PIGGYBACK 100 MG IV (18:15)
[2018-02-20] MEDS: DOCUSATE 100 MG CAPSULE PO (21:01)
--- NOTE | 2018-02-20 21:07 | PC.NURSE ---
Addendum entered by Rosalie Izquierdo 02/20/18 21:41: 2130: Pt reports dry heaving. Requesting anti-nausea medications and desire to have a BM. Transported to toilet. [facility] performed - negative results. Primary nurse notified. Original Note: 2106: Pt laying in bed, resting with wash cloth over eyes. Denies pain. Reports nausea. Declined PRN anti-nausea medications at this time. IV LFA saline lock, flushed. IV fluids RFA - D5 NS w/ KCL 20meq rate of 65mL/hr. Denies need for anything at this time. Call light within reach.
[2018-02-20 21:47] LABS: Hepatitis B Surf Ab Qualitativ Nonreactive (Nonreactive)
[2018-02-20] MEDS: ONDANSETRON 4 MG/2 ML INJ IV (22:27)
[2018-02-21] VITALS (10 sets, daily range): BP systolic 111–135; BP diastolic 64–82; PULSE 76–90; RESP 17–18; TEMP 36.5–36.8; O2SAT 95–98
[2018-02-21] MEDS: PANTOPRAZOLE 20 MG TABLET PO (05:53)
[2018-02-21] MEDS: DEXTROSE 5%-NS W/KCL 20MEQ 1,000 ML 65 MEQ IV (08:26)
--- NOTE | 2018-02-21 12:37 | PM.PN.1 ---
Subjective Date Patient Seen: 02/21/18 Interval history: Patient is anxious to go home. He does not like the food but is willing to try to eat it. As noted no fluid removed, HIDA scan negative Exam Vital Signs (past 8 hours): - 02/21/18 05:14 02/21/18 07:00 02/21/18 08:10 Temperature 97.9 F 97.7 F Pulse Rate 80 76 Respiratory Rate 18 18 Blood Pressure 129/82 135/74 Pulse Oximetry 95 97 96 02/21/18 11:36 Temperature 98.1 F Pulse Rate 76 Respiratory Rate 18 Blood Pressure 135/71 Pulse Oximetry 96 Oxygen Delivery Method Room Air Oxygen Flow Rate 0 Narrative Exam Narrative: Pleasant gentleman in NAD Lungs: decreased breath sounds but clear to auscultation CV: RRR nl Sl S2 Abd: soft/ non tender/ non distended/ no fluid wave Ext: no edema Objective Labs Result Diagrams: 02/20/18 05:18 02/20/18 05:18 Labs: Laboratory Results - last 24 hr 02/19/18 02/19/18 11:15 11:15 Hepatitis A Total & IgM Nonreactive Hep Bs Antibody Nonreactive Assessment & Plan (1) Severe protein-calorie malnutrition: Problem details: Will continue to encourage oral intake. This appears to be improveing Current visit: Yes Status: Acute (2) Hep C w/o coma, chronic: Problem details: Patient needs to start treatment as an outpatient given elevated LFT's Current visit: Yes Status: Acute (3) Pancreatitis: Problem details: improving, advance diet Current visit: Yes Status: Acute (4) Acute acalculous cholecystitis: Problem details: Hida scan negative. Advance diet per surgery Current visit: No Status: Acute Plan: Assessment/Plan Narrative: Nothing further to add at this time. Will sign-off, please re consult if needed. Quality VTE Deep Vein Thrombosis/Pulmonary Embolism Present on Admission: No
--- NOTE | 2018-02-21 12:55 | PM.PN.1 ---
Subjective Date Patient Seen: 02/21/18 Time Patient Seen: 13:01 Interval history: Timothy reports he feels pretty good. He reiterates that he hates her food and so he has refused to eat lunch consented straight back without eating anything from it. He denies any nausea and denies any pain. Exam Vital Signs (past 8 hours): - 02/21/18 05:14 02/21/18 07:00 02/21/18 08:10 Temperature 97.9 F 97.7 F Pulse Rate 80 76 Respiratory Rate 18 18 Blood Pressure 129/82 135/74 Pulse Oximetry 95 97 96 02/21/18 11:36 Temperature 98.1 F Pulse Rate 76 Respiratory Rate 18 Blood Pressure 135/71 Pulse Oximetry 96 Oxygen Delivery Method Room Air Oxygen Flow Rate 0 Narrative Exam Narrative: Lying peacefully on his left side. Abdomen is soft with active bowel sounds. No fluid wave. Still has edema in his feet but it is improving. Objective Labs Result Diagrams: 02/20/18 05:18 02/20/18 05:18 Labs: Laboratory Results - last 24 hr 02/19/18 02/19/18 11:15 11:15 Hepatitis A Total & IgM Nonreactive Hep Bs Antibody Nonreactive Assessment & Plan Plan: Assessment/Plan Narrative: Advanced cirrhosis most likely secondary to hepatitis-C. I talked to Timothy about his food intake. He has severe protein calorie malnutrition and I am uncomfortable sending him home unless he can demonstrate inability to eat solid food. He has agreed to order an egg salad sandwich and try to eat that. We need to keep him here until he can demonstrate an ability to take enough food to sustain him physically. Quality VTE Deep Vein Thrombosis/Pulmonary Embolism Present on Admission: No
[2018-02-21] MEDS: levoFLOXacin 750 MG/150 ML PIGGYBACK 100 MG IV (17:59)
[2018-02-21] MEDS: MAGNESIUM HYDROXIDE 30 ML UDC PO (20:14)
--- NOTE | 2018-02-21 22:37 | PC.NURSE ---
nutrition Abdomen firm and distended with hyperactive BT's upon assessment this PM. Pt states since taking in lunch tray (75%) has had discomfort and doens't feel like eating. refused dinner tray. ensure, boost, snacks offered and refused multiple times. is taking in water. pt wanting MOM with HS meds; given. I'll eat pudding after I'm able to produce pudding.
[2018-02-22] VITALS: BP 120/86; PULSE 89; RESP 18; TEMP 36.6; O2SAT 96
[2018-02-22] MEDS: DEXTROSE 5%-NS W/KCL 20MEQ 1,000 ML 65 MEQ IV (02:15)
[2018-02-22 04:00] VITALS: BP 123/73; PULSE 98; RESP 18; TEMP 36.3; O2SAT 97
[2018-02-22] MEDS: PANTOPRAZOLE 20 MG TABLET PO (05:45)
[2018-02-22 07:50] VITALS: BP 125/79; PULSE 79; RESP 14; TEMP 36.7; O2SAT 96
[2018-02-22 07:51] VITALS: O2SAT 95
--- NOTE | 2018-02-22 10:49 | CM.DPC ---
DCP: continued: Checked in with pt now in followup to d/c plan after being alerted that pt wished to go home today and that a friend had arrived to take him back home to [facility]. Prior to this visit reviewed last progress note of Dr. Lerma/consulting hospitalist and Dr. Silvestre/surgeon. Dr. Silvestre had stated that pt was not yet taking in enough food and she would not deem him stable for d/c until he was able to do this. TROY Greene states that he continues to refuse food. Dr. Lerma had signed off unless further need indicated further consultation. Met with pt. He confirms he wants to go home. Says he understands what the surgeon said but says I do not not feel like eating and I do wish to go back home. He says anther doctor saw him this morning, he did not know who it was. (TROY Greene confirms it was hospitalist Dr. Fitch, taking over for Dr. Lerma.) Pt says he expressed his feelings about d/c today with this doctor and said the doctor told him he would see him again later today. Discussed issues around recommendations from the professional team at the hospital and pt's ultimate right to decide what he will do as he will not be held against his wishes. He is agreeable to waiting for further discussion with the physician team. Pt's friend is here and eager to get a ferrry PB lined up. She is aware that at this time there is no d/c order. P: will be following.
--- NOTE | 2018-02-22 11:58 | PC.NURSE ---
Day shift: Pt left unit at approx 1205 to private car w/ friend. Paperwork signed and all questions answered. He has all personal belongings. Stressed the importance of a FU appointment when he gets back to [place] w/ his PCP. Wheeled down in by PREMA Solis.
--- NOTE | 2018-02-22 16:06 | PM.PN.1 ---
Subjective Date Patient Seen: 02/22/18 Time Patient Seen: 10:06 Interval history: He was seen in his room today to follow up protein calorie malnutrition, hepatitis-C, pancreatitis and cholecystitis. He is expecting to go home at around 2:00 p.m. today and will follow up with his physician on [facility]. He is discussed with the rounding surgeon. Exam Vital Signs (past 8 hours): Oxygen Delivery Method Room Air Oxygen Flow Rate 0 Narrative Exam Narrative: Alert and oriented x3 without apparent distress. Heart is regular rate and rhythm without murmur. Lungs are clear to auscultation bilaterally. Extremities have no ankle edema. Abdomen is moderately distended without fluid wave or obvious ascites. Nontender, relatively soft. Objective Labs Result Diagrams: 02/20/18 05:18 02/20/18 05:18 Assessment & Plan (1) Severe protein-calorie malnutrition: Problem details: He is apparently eating well and ready to go home. Will be followed by his primary care. Current visit: No Status: Acute (2) Elevated LFTs: Problem details: Likely secondary to Hepatitis C. Will be followed by his primary care. Current visit: No Status: Acute (3) Hep C w/o coma, chronic: Problem details: Patient needs to start treatment as an outpatient given elevated LFT's Current visit: No Status: Acute (4) Pancreatitis: Problem details: improving, advancing diet Current visit: No Status: Acute (5) Acute acalculous cholecystitis: Problem details: Hida scan negative. Eating well enough to go home. Current visit: No Status: Acute Quality VTE Deep Vein Thrombosis/Pulmonary Embolism Present on Admission: No
[2018-02-26 21:12] LABS: Hepatitis A Antibody IgM NONREACTIVE (NONREACTIVE); Hepatitis B Core Antibody IgM NONREACTIVE (NONREACTIVE); Hepatitis B Surface Antigen NONREACTIVE (NONREACTIVE); Hepatitis C Antibody REACTIVE
--- NOTE | 2018-03-04 08:40 | DS_ITS ---
ADMISSION DATE: 02/18/2018 DISCHARGE DATE: 02/22/2018 Patient came in with known hepatitis C and cirrhosis based on ethanol as well as the hepatitis C. He was observed carefully for developing ascites and felt to possibly have a biliary leak. However, his HIDA scan shows no sign of any bile leak from fairly recent cholecystectomy. There is no sign of significant ascites even on ultrasound, so he is actually comfortable. He has, again, advanced cirrhosis, probably mostly secondary to hepatitis C, although his history also includes ethanol abuse. He lives, I believe, on [facility]. He has a physician there. He has his medications at home. We're really not doing anything with him here surgically. He's comfortable. He's ambulatory. He's able to eat, and he's asymptomatic with no abdominal pain. He'll be discharged on his home regimen with no changes and to be followed here surgically only on a p.r.n. basis. Sol Timothy - Parish/kathi doc#: [id number]/job#: [id number] dd: 02/22/2018 11:29:00 dt: 02/22/2018 19:46:00 DICTATING /COPIES TO: Nikhil Dickson MD COPIES MNE: HIRO
== END 2018-02-22 12:02 | disposition home or self-care (01) | DRG 441 ==
LOC: ICU 14:53 → AC 17:19
PROVIDERS: Internal Medicine; Admitting Provider Surgery; Family Provider Family Medicine; PCP Family Medicine; Visit Provider Surgery
DX: B18.2 Chronic viral hepatitis C (principal); K85.90 Acute pancreatitis without necrosis or infection, unspecified; E43 Unspecified severe protein-calorie malnutrition; K92.1 Melena; N39.0 Urinary tract infection, site not specified; K81.0 Acute cholecystitis; Z68.1 Body mass index [BMI] 19.9 or less, adult; R18.8 Other ascites; D64.9 Anemia, unspecified; K74.69 Other cirrhosis of liver; F17.210 Nicotine dependence, cigarettes, uncomplicated; F12.90 Cannabis use, unspecified, uncomplicated; E86.0 Dehydration; J44.9 Chronic obstructive pulmonary disease, unspecified
CPT/HCPCS: 36415; 36430; 74181; 76705; 78226; 80053; 80074; 80320; 80329; 81001; 82140; 82150; 82977; 83690; 83735; 83880; 84100; 85014; 85018; 85025; 85610; 85730; 86644; 86703; 86706; 86850; 86900; 86901; 87086; 87340; 87522; 93306; 99231; 99238; A9537; P9016; G0480; J1956; J2405; J3480; J7050